=== PATIENT | male | born 1950 | race Caucasian/White ===

== ENCOUNTER 2019-12-25 07:48 | Outpatient (RCR) | payer MEDICARE, SELFPAY | END 2020-03-04 23:59 | disposition home or self-care (01) | LOC: ANHWOC 07:48 | PROVIDERS: PCP Family Medicine; Visit Provider Physician Assistant | DX: S81.802D Unspecified open wound, left lower leg, subsequent encounter (principal) | CPT/HCPCS: 99212; 99213; A9270; G0463 ==

== ENCOUNTER 2020-07-20 01:17 | Outpatient (CLI) | payer MEDICARE, SELFPAY ==
[2020-07-20 19:24] LABS: SARS-CoV-2 RNA PCR Negative
== END 2020-07-20 01:18 | disposition home or self-care (01) ==
LOC: ANHCOVIDDT 01:17
PROVIDERS: PCP Physician Assistant; Visit Provider Internal Medicine Gastroenterology
DX: Z01.812 Encounter for preprocedural laboratory examination (principal); Z20.828 Contact with and (suspected) exposure to other viral communicable diseases
CPT/HCPCS: 87635; C9803; U0003

== ENCOUNTER 2020-07-22 01:12 | Day surgery (SDC) | payer MEDICARE, SELFPAY ==
[2020-07-15 13:09] VITALS: BMI 44.8
[2020-07-22 07:04] VITALS: BP 108/68; PULSE 60; RESP 18; TEMP 35.9; O2SAT 98; BMI 44.1
[2020-07-22 07:21] LABS: Glucose Point of Care 105 (65-105)
[2020-07-22] MEDS: LACTATED RINGERS 1,000 ML 150 ML IV CONT (07:21)
--- NOTE | 2020-07-22 07:34 | PM.IMHP ---
H&P: HPI History of Present Illness Date/Time: 07/22/20 07:34 Chief complaint: neoplasm screening, hx of colon polyps Narrative: Reason for visit colonoscopy. This very pleasant gentleman seen in consultation at the request of the primary physician. Impression: Screening and surveillance colonoscopy. The patient's history adenomatous colon polyps. CKD. DJD. Diabetic neuropathy. Peripheral arterial disease. CHF. EGD. Gout. Foot ulceration. Low bone mass. Morbid obesity. FRANCISCA. Tachy-jourdan syndrome status post pacemaker. HTN. HLD. DM. Recommendation: Colonoscopy. History: This very pleasant gentleman is here for colonoscopy. He is here for screening and surveillance colonoscopy. She review systems is negative. He has a history adenomatous colon polyps. The patient has lost a filling this lower extremities. He does have a history of sleep apnea on CPAP. Review of Systems Review of Systems: All systems reviewed & are unremarkable except as noted in HPI and below PMFSH Past Medical History Medical History (Updated 07/22/20 @ 07:34 by Mike Perez, DO) Adenomatous colon polyp AVN (avascular necrosis of bone) BMI 45.0-49.9, adult CKD (chronic kidney disease) Degenerative joint disease of knee Diabetic neuropathy Diabetic vasculopathy Diastolic congestive heart failure Erectile dysfunction Gout History of falling History of foot ulcer Low bone mass Morbid obesity with BMI of 45.0-49.9, adult Open wound of left lower extremity FRANCISCA on CPAP Osteoarthritis Pacemaker PAD (peripheral artery disease) Paroxysmal atrial fibrillation Peripheral neuropathy Primary hypertension Prostate cancer screening 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, with long-term current use of insulin Last A1C as of 03/09/20-7.4 Social History Social History Smoking status: Never smoker Second hand tobacco smoke exposure: No Alcohol intake: never Substance use: never Substance use type: does not use Living arrangements: with family Gender identity (if verbalized by the patient): Male Spiritual care concerns: No Meds Home Medications and Allergies Home Medications Medication Instructions Recorded Confirmed Type blood sugar diagnostic #200 each 09/01/19 07/13/20 Rx potassium chloride 20 mEq 20 meq PO QPM tablet 10/28/19 07/15/20 History tablet,extended release lancets 33 gauge #200 each 10/31/19 07/13/20 Rx safety needles 31 gauge x 5/16 #100 each 11/10/19 07/13/20 Rx apixaban 5 mg tablet 5 mg PO BID 11/18/19 07/22/20 History bumetanide 1 mg tablet 2 mg PO BID tablet 11/18/19 07/15/20 History lisinopril 5 mg tablet 5 mg PO BID tablet 11/18/19 07/15/20 History allopurinol 300 mg tablet 300 mg PO DAILY #90 tablet 12/15/19 07/15/20 Rx pen needle, diabetic 31 gauge x #200 each 01/05/20 07/13/20 Rx 03/06 dulaglutide 1.5 mg/0.5 mL 1.5 mg SUB-Q WEEKLY 84 Days #6 ml 02/26/20 07/15/20 Rx subcutaneous pen injector sotalol 80 mg tablet 80 mg PO BID 02/26/20 07/15/20 History cholecalciferol (vitamin D3) 25 25 mcg PO DAILY #90 tablet 07/05/20 07/15/20 Rx mcg (1,000 unit) tablet insulin NPH-regular 70-30 U-100 See Rx Instructions SUB-Q BID 90 07/05/20 07/15/20 Rx insulin 100 unit/mL subcutaneous Days #80883 unit pen tramadol 50 mg tablet 50 mg PO BID PRN #30 tablet 07/06/20 07/15/20 Rx diclofenac potassium 50 mg PO BID 07/15/20 07/15/20 History rosuvastatin 5 mg PO DAILY 07/15/20 07/15/20 History Allergies Allergy/AdvReac Type Severity Reaction Status Date / Time phenylephrine Allergy Intermediate Unknown Verified 07/22/20 07:01 [From Eb-Synephrine (phenylephrine)] Vital Signs Vital Signs - 24 hr 07/22/20 07:04 Temperature 35.9 C L Pulse Rate 60 Respiratory Rate 18 Blood Pressure 108/68 Pulse Oximetry 98
--- NOTE | 2020-07-22 07:57 | WPDANESEPPF ---
Anes - Initial Pre Proc Eval Procedure: Operation Date: 07/22/20 08:00 Proposed Procedures p Screening Colonoscopy - Mike Perez DO Date/Time: 07/22/20 07:57 Surgeon: Mike Perez DO Pre Op Diagnosis: neoplasm screening, hx of colon polyps Patient Data Age: 70 Gender: M Height: 6 ft Weight: 147.5 kg Last Vital Signs Temp 96.7 F L 07/22/20 07:04 Pulse 60 07/22/20 07:04 Resp 18 07/22/20 07:04 BP 108/68 07/22/20 07:04 Pulse Ox 98 07/22/20 07:04 Allergies Allergy/AdvReac Type Severity Reaction Status Date / Time phenylephrine Allergy Intermediate Unknown Verified 07/22/20 07:01 [From Eb-Synephrine (phenylephrine)] Home Medications Medication Instructions Recorded Confirmed Type blood sugar diagnostic #200 each 09/01/19 07/13/20 Rx potassium chloride 20 mEq 20 meq PO QPM tablet 10/28/19 07/15/20 History tablet,extended release lancets 33 gauge #200 each 10/31/19 07/13/20 Rx safety needles 31 gauge x 5/16 #100 each 11/10/19 07/13/20 Rx apixaban 5 mg tablet 5 mg PO BID 11/18/19 07/22/20 History bumetanide 1 mg tablet 2 mg PO BID tablet 11/18/19 07/15/20 History lisinopril 5 mg tablet 5 mg PO BID tablet 11/18/19 07/15/20 History allopurinol 300 mg tablet 300 mg PO DAILY #90 tablet 12/15/19 07/15/20 Rx pen needle, diabetic 31 gauge x #200 each 01/05/20 07/13/20 Rx 5/16 dulaglutide 1.5 mg/0.5 mL 1.5 mg SUB-Q WEEKLY 84 Days #6 ml 02/26/20 07/15/20 Rx subcutaneous pen injector sotalol 80 mg tablet 80 mg PO BID 02/26/20 07/15/20 History cholecalciferol (vitamin D3) 25 25 mcg PO DAILY #90 tablet 07/05/20 07/15/20 Rx mcg (1,000 unit) tablet insulin NPH-regular 70-30 U-100 See Rx Instructions SUB-Q BID 90 07/05/20 07/15/20 Rx insulin 100 unit/mL subcutaneous Days #62717 unit pen tramadol 50 mg tablet 50 mg PO BID PRN #30 tablet 07/06/20 07/15/20 Rx diclofenac potassium 50 mg PO BID 07/15/20 07/15/20 History rosuvastatin 5 mg PO DAILY 07/15/20 07/15/20 History Laboratory Tests 07/22/20 07:15 POC Capillary Glucose 105 mg/dl mg/dl (65-105) Patient hx anesthesia problems: none Family hx anesthesia problems: none PMFSH Past Medical History Medical History (Updated 07/22/20 @ 07:38 by Mike Perez DO) Adenomatous colon polyp AVN (avascular necrosis of bone) CKD (chronic kidney disease) Degenerative joint disease of knee Diabetic neuropathy Diabetic vasculopathy Diastolic congestive heart failure Erectile dysfunction GERD (gastroesophageal reflux disease) Gout History of falling History of foot ulcer HLD (hyperlipidemia) Low bone mass Morbid obesity with BMI of 45.0-49.9, adult Open wound of left lower extremity FRANCISCA on CPAP Osteoarthritis Pacemaker PAD (peripheral artery disease) Paroxysmal atrial fibrillation Peripheral neuropathy Primary hypertension Prostate cancer screening 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, with long-term current use of insulin Last A1C as of 03/09/20-7.4 Social History Social History Smoking status: Never smoker Second hand tobacco smoke exposure: No Alcohol intake: never Substance use: never Substance use type: does not use Living arrangements: with family Gender identity (if verbalized by the patient): Male Spiritual care concerns: No Anes - Eval Final PreProcedure Day of Procedure 07/22/20 07:57 Patient weight: morbidly obese Heart: irregular rhythm Lungs: clear to auscultation Airway: Mallampati scale class III Neurological: alert and oriented Last oral intake: >/= 8 hours ASA classification: IV Emergent: no Anesthetic plan: proceed Anesthesia type and monitoring: general GIVS and standard monitoring Informed Consent: The patient's anesthetic plan and its attendant risks and benefits were discussed with the patient/family/POA. Questions were solicited and answers prov
--- NOTE | 2020-07-22 08:24 | SUR.OPER ---
0812- PT GIVES VERBAL CONSENT FOR DR GÓMEZ TO CALL DAUGHTER WITH PROCEDURE RESULTS.
[2020-07-22 08:42] VITALS: BP 103/65; PULSE 56; RESP 21; O2SAT 97
[2020-07-22 08:52] VITALS: BP 115/75; PULSE 62; RESP 19; O2SAT 100
[2020-07-22 08:57] LABS: Glucose Point of Care 98 (65-105)
[2020-07-22 09:02] VITALS: BP 119/73; PULSE 60; RESP 20; O2SAT 100
== END 2020-07-22 09:16 | disposition home or self-care (01) ==
PROVIDERS: PCP Physician Assistant; Visit Provider Internal Medicine Gastroenterology
PROC: 0DJD8ZZ Inspection of Lower Intestinal Tract, Via Natural or Artificial Opening Endoscopic (ICD-10-PCS; CPT 45378; principal; 2020-07-22 08:00)
DX: Z12.11 Encounter for screening for malignant neoplasm of colon (principal); K64.8 Other hemorrhoids; K60.2 Anal fissure, unspecified; D12.4 Benign neoplasm of descending colon; K63.89 Other specified diseases of intestine; I13.0 Hypertensive heart and chronic kidney disease with heart failure and stage 1 through stage 4 chronic kidney disease, or unspecified chronic kidney disease; E11.40 Type 2 diabetes mellitus with diabetic neuropathy, unspecified; E11.610 Type 2 diabetes mellitus with diabetic neuropathic arthropathy; E11.51 Type 2 diabetes mellitus with diabetic peripheral angiopathy without gangrene; E11.22 Type 2 diabetes mellitus with diabetic chronic kidney disease; I50.9 Heart failure, unspecified; N18.9 Chronic kidney disease, unspecified; Z79.01 Long term (current) use of anticoagulants; Z79.4 Long term (current) use of insulin; I48.0 Paroxysmal atrial fibrillation; E78.5 Hyperlipidemia, unspecified; K21.9 Gastro-esophageal reflux disease without esophagitis; M10.9 Gout, unspecified; G47.33 Obstructive sleep apnea (adult) (pediatric); Z95.0 Presence of cardiac pacemaker; E66.01 Morbid (severe) obesity due to excess calories; Z68.41 Body mass index [BMI] 40.0-44.9, adult
CPT/HCPCS: 45380; 88305; J2704; J7120

== ENCOUNTER 2020-07-26 07:49 | Outpatient (CLI) | payer MEDICARE, SELFPAY ==
--- NOTE | ~2020-07-26 | US_ITS ---
EXAMINATION: US thyroid DATE: 07/26/2020 08:35 INDICATION: Multinodular goiter. Family history of thyroid cancer. TECHNIQUE: Multiple ultrasound images of the thyroid were obtained. COMPARISON: None. FINDINGS: The right thyroid lobe measures 4.7 x 3.5 x 2.6 cm. The left thyroid lobe measures 0.6 x 2.4 x 2.4 c m. 2.4 cm wider than tall solid hypoechoic nodule with smooth margins and internal coarse calcificat ions in the right thyroid lobe. (TI-RADS 4, moderately suspicious , FNA if >=1.5 cm, annual followup is >1 cm). There are a couple additional similar solid or predominantly solid, wider than tall hypoec hoic nodules with smooth margins and without echogenic foci, also TI RADS 4 in the left thyroid lobe is larger measuring 3.0 cm and a smaller nodule measuring 2.3 cm in maximal diameters. Additional wid er than tall, solid very hypoechoic nodules with smooth margins and without internal echogenic foci a lso TI-RADS 4, measuring 2.0 cm in the right thyroid and 1.8 cm the thyroid isthmus. IMPRESSION: 1. Multinodular goiter with 5 TI RADS 4 nodules measuring >1.5 cm in both thyroid lobes and at the th yroid isthmus which would meet criteria for ultrasound-guided biopsy. Would consider ultrasound-guide d biopsy of the largest 3.0 cm nodule in the left thyroid and the largest coarse calcification contai dionisio 2.4 cm nodule in the right thyroid. Reviewed, dictated and finalized at location A. IMPRESSION: 1. Multinodular goiter with 5 TI RADS 4 nodules measuring >1.5 cm in both thyro id lobes and at the thyroid isthmus which would meet criteria for ultrasound-gu ided biopsy. Would consider ultrasound-guided biopsy of the largest 3.0 cm nodu le in the left thyroid and the largest coarse calcification containing 2.4 cm n odule in the right thyroid.
== END 2020-07-26 07:50 | disposition home or self-care (01) ==
PROVIDERS: PCP Physician Assistant; Visit Provider Internal Medicine Endocrinology, Diabetes & Metabolism
DX: E04.2 Nontoxic multinodular goiter (principal); Z80.8 Family history of malignant neoplasm of other organs or systems; R79.89 Other specified abnormal findings of blood chemistry
CPT/HCPCS: 76536

== ENCOUNTER 2020-08-11 09:52 | Outpatient (CLI) | payer MEDICARE, SELFPAY ==
--- NOTE | ~2020-08-11 | US_ITS ---
EXAMINATION: US FNA w image guidance, US FNA additional DATE: 08/11/2020 10:57 INDICATION: Bilateral thyroid nodules TECHNIQUE: A time-out was performed to verify the patient's name, date of , and procedure to be performed . The procedure and its benefits and risks were discussed with the patient. Risks specifically discus sed included bleeding and infection. The patient understood the risks and agreed to proceed. The neck was prepped and draped in the usual sterile manner. 3 mL 1% lidocaine was used for local anesthesia . Attention was first into the left thyroid nodule. 6 passes were made with a 25G needle into the les ion. Appropriate needle location was documented with continuous sonographic guidance. Attention was then turned to the right thyroid nodule. An additional 6 passes were made with a 25G needle into the lesion utilizing continuous sonographic guidance. Sterile bandages were applied. There were no immed iate complications. FINDINGS: Grayscale ultrasound images demonstrate biopsy needles advanced into first the 2.9 cm predominantly s olid hypoechoic TI RADS 4 nodule at the mid inferior left thyroid. Subsequent images demonstrate biop sy needles advanced into a 2.4 cm solid hypoechoic TI RADS 4 nodule with coarse shadowing calcificati ons in the inferior right thyroid. IMPRESSION: 1. Successful ultrasound-guided fine needle aspiration of a 2.9 cm TI RADS 4 left thyroid nodule. 2. Successful ultrasound guided fine-needle aspiration of a 2.4 cm TI RADS 4 right thyroid nodule. Reviewed, dictated and finalized at location A. IMPRESSION: 1. Successful ultrasound-guided fine needle aspiration of a 2.9 cm TI RADS 4 l eft thyroid nodule. 2. Successful ultrasound guided fine-needle aspiration of a 2.4 cm TI RADS 4 ri ght thyroid nodule.
== END 2020-08-11 09:53 | disposition home or self-care (01) ==
PROVIDERS: PCP Physician Assistant; Visit Provider Internal Medicine Endocrinology, Diabetes & Metabolism
DX: E04.2 Nontoxic multinodular goiter (principal)
CPT/HCPCS: 10005; 10006; 88173; 88305

== ENCOUNTER 2020-09-02 08:45 | Outpatient (CLI) | payer MEDICARE, SELFPAY ==
--- NOTE | ~2020-09-02 | US_ITS ---
EXAMINATION: US soft tissue head and neck DATE: 09/02/2020 09:37 INDICATION: Thyroid cancer. Assess for cervical lymphadenopathy. TECHNIQUE: Multiple grayscale and Doppler ultrasound images of the left and right neck were obtained. COMPARISON: None FINDINGS: A couple normal-sized cervical lymph nodes are identified in both the left and right jugular chains m easuring up to 5 mm in maximal short axis diameter and with with normal central fatty raina. No pathol ogically enlarged cervical lymphadenopathy identified. IMPRESSION: 1. No pathologically enlarged or suspicious appearing cervical lymphadenopathy. Reviewed, dictated and finalized at location A. [employer]
== END 2020-09-02 08:46 | disposition home or self-care (01) ==
PROVIDERS: PCP Physician Assistant; Visit Provider Internal Medicine Endocrinology, Diabetes & Metabolism
DX: C73 Malignant neoplasm of thyroid gland (principal)
CPT/HCPCS: 76536

== ENCOUNTER 2020-11-02 07:15 | Outpatient (RCR) | payer MEDICARE, SELFPAY ==
[2020-08-12 13:47] VITALS: BMI 44.1
--- NOTE | 2020-09-21 12:01 | PM.IMHP ---
H&P: HPI History of Present Illness Date/Time: 09/21/20 12:01 Chief complaint: E11.621 Type 2 diabetes mellitus with foot ulcer Narrative: Tank James is a 70 year old male Who presents to the [place] wound clinic today for re-evaluation of bilateral foot ulcers. The patient was seen in our office last week and radiographs were obtained at that time. The patient is currently awaiting a thyroid surgery due to thyroid cancer. His ulcers are stable in nature. No acute signs of infection. No fever, chills, night sweats, nausea, vomiting or diarrhea. Review of Systems Constitutional: Constitutional: Reports no additional constitutional complaints, Denies excessive sweating, Denies fever(s) and Denies weight gain Eyes: Eyes: Reports no additional eye complaints and Denies change in vision ENT: Reports system reviewed and no additional complaints, except as documented and Reports Normal hearing present Cardiovascular: Cardiovascular: Denies chest pain, Denies diaphoresis, Denies leg ulcers and Denies dyspnea on exertion Respiratory: Respiratory: Reports no additional respiratory complaints, Denies cough and Denies dyspnea on exertion Gastrointestinal: Gastrointestinal: Reports no additional gastrointestinal complaints, Denies abdominal pain, Denies constipation, Denies nausea and Denies vomiting Genitourinary: Genitourinary: Reports no additional male genitourinary complaints, Denies hematuria and Denies urinary frequency Musculoskeletal: Musculoskeletal: Reports no additional musculoskeletal complaints and Reports as per HPI Neurologic: Reports Normal hearing present Endocrine: Endocrine: Reports no additional endocrine complaints, Denies change in body appearance, Denies excessive sweating, Denies polyphagia, Denies polydipsia and Denies polyuria [facility] Past Medical History Medical History Adenomatous colon polyp AVN (avascular necrosis of bone) CKD (chronic kidney disease) Degenerative joint disease of knee Diabetic foot ulcer Diabetic neuropathy Diabetic vasculopathy Diastolic congestive heart failure Erectile dysfunction GERD (gastroesophageal reflux disease) Gout History of falling History of foot ulcer HLD (hyperlipidemia) Low bone mass Morbid obesity with BMI of 45.0-49.9, adult Open wound of left lower extremity FRANCISCA on CPAP Osteoarthritis Pacemaker PAD (peripheral artery disease) Paroxysmal atrial fibrillation Peripheral neuropathy Primary hypertension Prostate cancer screening 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, with long-term current use of insulin Last A1C as of 03/09/20-7.4 Family History Family History Other Cerebrovascular accident Diabetes mellitus Family history of arthritis Family history of cardiovascular disease Family history of gout Family history of hepatitis Family history of malignant neoplasm Family history of malignant neoplasm of thyroid Family history of thyroid disease Hypertension Social History Social History Smoking status: Never smoker Second hand tobacco smoke exposure: No Alcohol intake: never Substance use: never Substance use type: does not use Gender identity (if verbalized by the patient): Male Sexual Orientation (if Verbalized by the Patient): Straight or Heterosexual Spiritual care concerns: No Meds Home Medications and Allergies Home Medications Medication Instructions Recorded Confirmed Type blood sugar diagnostic #200 each 09/01/19 07/13/20 Rx potassium chloride 20 mEq 20 meq PO QPM tablet 10/28/19 07/15/20 History tablet,extended release lancets 33 gauge #200 each 10/31/19 07/13/20 Rx safety needles 31 gauge x 16 #100 each 11/10/19 07/13/20 Rx apixaban 5 mg tablet 5 mg PO BID 11/18/19 07/22/20 History bumetanide
--- NOTE | 2020-10-05 09:35 | PM.IMHP ---
H&P: HPI History of Present Illness Date/Time: 10/05/20 09:35 Chief complaint: E11.621 Type 2 diabetes mellitus with foot ulcer Narrative: Tank James is a 70 year old male who presents to the [facility] wound clinic today for re-evaluation of bilateral foot ulcers. The patient is currently awaiting a thyroid surgery due to thyroid cancer, surgery planned for this . His ulcers are stable in nature. No acute signs of infection. No fever, chills, night sweats, nausea, vomiting or diarrhea. Review of Systems Constitutional: Constitutional: Reports no additional constitutional complaints, Denies excessive sweating, Denies fever(s) and Denies weight gain Eyes: Eyes: Reports no additional eye complaints and Denies change in vision ENT: Reports system reviewed and no additional complaints, except as documented and Reports Normal hearing present Cardiovascular: Cardiovascular: Denies chest pain, Denies diaphoresis, Denies leg ulcers and Denies dyspnea on exertion Respiratory: Respiratory: Reports no additional respiratory complaints, Denies cough and Denies dyspnea on exertion Gastrointestinal: Gastrointestinal: Reports no additional gastrointestinal complaints, Denies abdominal pain, Denies constipation, Denies nausea and Denies vomiting Genitourinary: Genitourinary: Reports no additional male genitourinary complaints, Denies hematuria and Denies urinary frequency Musculoskeletal: Musculoskeletal: Reports no additional musculoskeletal complaints and Reports as per HPI Neurologic: Reports Normal hearing present Endocrine: Endocrine: Reports no additional endocrine complaints, Denies change in body appearance, Denies excessive sweating, Denies polyphagia, Denies polydipsia and Denies polyuria [facility] Past Medical History Medical History Adenomatous colon polyp AVN (avascular necrosis of bone) CKD (chronic kidney disease) Degenerative joint disease of knee Diabetic foot ulcer Diabetic neuropathy Diabetic vasculopathy Diastolic congestive heart failure Erectile dysfunction GERD (gastroesophageal reflux disease) Gout History of falling History of foot ulcer HLD (hyperlipidemia) Low bone mass Morbid obesity with BMI of 45.0-49.9, adult Open wound of left lower extremity FRANCISCA on CPAP Osteoarthritis Pacemaker PAD (peripheral artery disease) Paroxysmal atrial fibrillation Peripheral neuropathy Primary hypertension Prostate cancer screening 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, with long-term current use of insulin Last A1C as of 03/09/20-7.4 Family History Family History Other Cerebrovascular accident Diabetes mellitus Family history of arthritis Family history of cardiovascular disease Family history of gout Family history of hepatitis Family history of malignant neoplasm Family history of malignant neoplasm of thyroid Family history of thyroid disease Hypertension Social History Social History Smoking status: Never smoker Second hand tobacco smoke exposure: No Alcohol intake: never Substance use: never Substance use type: does not use Gender identity (if verbalized by the patient): Male Sexual Orientation (if Verbalized by the Patient): Straight or Heterosexual Spiritual care concerns: No Meds Home Medications and Allergies Home Medications Medication Instructions Recorded Confirmed Type blood sugar diagnostic #200 each 09/01/19 07/13/20 Rx potassium chloride 20 mEq 20 meq PO QPM tablet 10/28/19 07/15/20 History tablet,extended release lancets 33 gauge #200 each 10/31/19 07/13/20 Rx safety needles 31 gauge x 5/16 #100 each 11/10/19 07/13/20 Rx apixaban 5 mg tablet 5 mg PO BID 11/18/19 07/22/20 History bumetanide 1 mg tablet 2 mg PO BID tablet 11/18/19 07/15/20 Hist
--- NOTE | 2020-11-02 09:21 | PM.CNOR ---
Assessment and Plan Assessment and plan (1) Diabetic foot ulcer: Qualifiers: Diabetic foot ulcer location: toe Diabetes mellitus type: type 2 Laterality: unspecified laterality Non-pressure ulcer stage: with muscle involvement without evidence of necrosis Qualified Code(s): E11.621 - Type 2 diabetes mellitus with foot ulcer; L97.505 - Non-pressure chronic ulcer of other part of unspecified foot with muscle involvement without evidence of necrosis Code(s): E11.621 - Type 2 diabetes mellitus with foot ulcer; L97.509 - Non-pressure chronic ulcer of other part of unspecified foot with unspecified severity Status: Acute Assessment and Plan: Patient with recurrent bilateral foot ulcers. History and exam reviewed with the patient today. Good improvement with daily dressing changes. Surrounding callus formation debrided under sterile conditions today, tolerated well. Patient continues to decline fracture boot or TCC for optimal healing. after callus removal hypergranulation tissue of the left hallux treated with silver nitrate. Continue silver gel/mepilex foam to bilateral foot ulcers and antifungal cream to plantar foot. Patient's is at bedside and is performing home dressing changes. Verbalized understanding. Reviewed signs/symptoms of infection to report to ED immediately. Patient verbalized understanding and agrees with plan of care. Follow up in 4 weeks with [facility]. (2) Thyroid cancer: Code(s): C73 - Malignant neoplasm of thyroid gland Status: Acute Assessment and Plan: Status post thyroidectomy. Patient scheduled for radioactive iodine. (3) Type 2 diabetes mellitus with hyperglycemia: Qualifiers: Diabetes mellitus intermediate school teacher insulin use: with intermediate school teacher use Qualified Code(s): E11.65 - Type 2 diabetes mellitus with hyperglycemia; Z79.4 - manager long term care (current) use of insulin Code(s): E11.65 - Type 2 diabetes mellitus with hyperglycemia Status: Acute Assessment and Plan: Discussed importance of close diabetic control, optimal nutrition and blood glucose monitoring for bilateral foot ulcer healing. Recommended continuation of custom orthotics and depth shoes. Patient would benefit from a fracture boot or a total contact cast he currently declines due to other medical complications. We will continue to follow in the outpatient wound clinic. We reviewed signs symptoms of infection to report to the emergency room immediately. Patient verbalized understanding agrees the plan of care. (4) BMI 45.0-49.9, adult: Code(s): Z68.42 - Body mass index [BMI] 45.0-49.9, adult Status: Acute Assessment and Plan: Today we discussed weight loss in depth. The patient was referred to programs including the [facility] repeater chief, [employer] and [employer]. Discussed importance of weight loss in relation to surgical intervention in order to reduce the risk of postoperative complications, verbalized understanding. (5) Degenerative joint disease of knee: Qualifiers: Osteoarthritis type: primary Laterality: left Qualified Code(s): M17.12 - Unilateral primary osteoarthritis, left knee Code(s): M17.10 - Unilateral primary osteoarthritis, unspecified knee Status: Acute Assessment and Plan: Minimal pain at this time secondary to immobility after surgery. Effusion improved. No signs of infection. Continue with conservative treatment and observation. Discussed options for treatment the future if symptomatic. History of Present Illness HPI Consult date: 11/02/20 Requesting physician: Ramon Valderrama, PAHedyC Chief complaint: E11.621 Type 2 diabetes mellitus with foot ulcer Narrative: 7-year-old gentleman returns to [facility] outpatient wound clinic for evaluation of bilateral hallux diabetic foot ulcers. Patient with history of thyroid cancer. Status post thyroid resection in the interim. This was
== END 2020-11-10 23:59 | disposition home or self-care (01) ==
LOC: ANHWOC 07:15
PROVIDERS: PCP Physician Assistant; Referring Provider Orthopaedic Surgery; Visit Provider Family Medicine
DX: E11.621 Type 2 diabetes mellitus with foot ulcer (principal); L97.509 Non-pressure chronic ulcer of other part of unspecified foot with unspecified severity
CPT/HCPCS: 11042; 99212; 99213; A9270; G0463

== ENCOUNTER 2020-12-24 08:24 | Outpatient (CLI) | payer MEDICARE, SELFPAY | END 2020-12-24 08:25 | disposition home or self-care (01) | LOC: ANHCOVIDVC 08:24 | PROVIDERS: PCP Physician Assistant | DX: Z23 Encounter for immunization (principal) | CPT/HCPCS: 0001A; 91300 ==

== ENCOUNTER 2021-01-14 09:58 | Outpatient (CLI) | payer MEDICARE, SELFPAY | END 2021-01-14 09:59 | disposition home or self-care (01) | LOC: ANHCOVIDVC 09:58 | PROVIDERS: PCP Physician Assistant | DX: Z23 Encounter for immunization (principal) | CPT/HCPCS: 0002A; 91300 ==

== ENCOUNTER 2021-03-15 07:29 | Outpatient (RCR) | payer MEDICARE, SELFPAY ==
[2020-11-11 00:04] VITALS: BMI 44.1
--- NOTE | 2020-12-06 12:03 | PCWOUND ---
WOCN NOTE Patient cancelled due to radiation treatments. will call back to reschedule when he is clear.
--- NOTE | 2020-12-15 10:00 | PM.CNOR ---
Assessment and Plan Assessment and plan (1) Diabetic foot ulcer: Qualifiers: Diabetic foot ulcer location: toe Diabetes mellitus type: type 2 Laterality: unspecified laterality Non-pressure ulcer stage: with muscle involvement without evidence of necrosis Qualified Code(s): E11.621 - Type 2 diabetes mellitus with foot ulcer; L97.505 - Non-pressure chronic ulcer of other part of unspecified foot with muscle involvement without evidence of necrosis Code(s): E11.621 - Type 2 diabetes mellitus with foot ulcer; L97.509 - Non-pressure chronic ulcer of other part of unspecified foot with unspecified severity Status: Acute Assessment and Plan: Patient with recurrent bilateral foot ulcers. History and exam reviewed with the patient today. Good improvement with daily dressing changes. hypergranulation tissue of the bilateral hallux treated with silver nitrate. Continue silver gel/mepilex foam to bilateral foot ulcers and antifungal cream to plantar foot. Patient's is at bedside and is performing home dressing changes. Verbalized understanding. Reviewed signs/symptoms of infection to report to ED immediately. Patient verbalized understanding and agrees with plan of care. Follow up in 4 weeks with [facility]. (2) Thyroid cancer: Code(s): C73 - Malignant neoplasm of thyroid gland Status: Acute Assessment and Plan: Status post thyroidectomy. Patient scheduled for radioactive iodine. (3) Type 2 diabetes mellitus with hyperglycemia: Qualifiers: Diabetes mellitus fpc insulin use: with fpc use Qualified Code(s): E11.65 - Type 2 diabetes mellitus with hyperglycemia; Z79.4 - alf (current) use of insulin Code(s): E11.65 - Type 2 diabetes mellitus with hyperglycemia Status: Acute Assessment and Plan: Discussed importance of close diabetic control, optimal nutrition and blood glucose monitoring for bilateral foot ulcer healing. Recommended continuation of custom orthotics and depth shoes. Patient would benefit from a fracture boot or a total contact cast he currently declines due to other medical complications. We will continue to follow in the outpatient wound clinic. We reviewed signs symptoms of infection to report to the emergency room immediately. Patient verbalized understanding agrees the plan of care. (4) BMI 45.0-49.9, adult: Code(s): Z68.42 - Body mass index [BMI] 45.0-49.9, adult Status: Acute (5) Degenerative joint disease of knee: Qualifiers: Osteoarthritis type: primary Laterality: left Qualified Code(s): M17.12 - Unilateral primary osteoarthritis, left knee Code(s): M17.10 - Unilateral primary osteoarthritis, unspecified knee Status: Acute Assessment and Plan: Minimal pain at this time secondary to immobility after surgery. Effusion improved. No signs of infection. Continue with conservative treatment and observation. Discussed options for treatment the future if symptomatic. History of Present Illness HPI Consult date: 12/15/20 Requesting physician: Ramon Valderrama, VERO Chief complaint: E11.621 Type 2 diabetes mellitus with foot ulcer Narrative: 70-year-old gentleman returns to [facility] outpatient wound clinic for evaluation of bilateral hallux diabetic foot ulcers. Patient with history of thyroid cancer. Status post thyroid resection. This was complicated by tracheal laceration. He is doing better in regard to that. They feel like the trachea is healed in his wound is improved. Continues with daily dressing changes for the hallux bilaterally. No fever chills or increased symptoms. No new complaints. Patient has completed radiation for his thyroid treatment. Review of Systems Constitutional: Constitutional: Reports no additional constitutional complaints, Denies excessive sweating, Denies fever(s) and Denies weight gain Eyes: Eyes: Reports no additiona
--- NOTE | 2020-12-17 08:59 | P.PNOP_ITS ---
Subjective Subjective Date/Time Seen: 12/17/20 08:59 Objective Data Meds/Results Medications: Active Medications Generic Name Dose Route Start Last Admin Trade Name Freq PRN Reason Stop Dose Admin Silver 1 each 12/15/20 10:49 Silver Foam Band (Mepilex Ag 4x4) Bandage TOPICAL 03/14/21 23:59 PRN PRN Wound Care [facility] Medical History Adenomatous colon polyp AVN (avascular necrosis of bone) CKD (chronic kidney disease) Degenerative joint disease of knee Diabetic foot ulcer Diabetic neuropathy Diabetic vasculopathy Diastolic congestive heart failure Erectile dysfunction GERD (gastroesophageal reflux disease) Gout History of falling History of foot ulcer HLD (hyperlipidemia) Low bone mass Morbid obesity with BMI of 45.0-49.9, adult Open wound of left lower extremity FRANCISCA on CPAP Osteoarthritis Pacemaker PAD (peripheral artery disease) Paroxysmal atrial fibrillation Peripheral neuropathy Primary hypertension Prostate cancer screening 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, with long-term current use of insulin Last A1C as of 03/09/20-7.4 Family History Other Cerebrovascular accident Diabetes mellitus Family history of arthritis Family history of cardiovascular disease Family history of gout Family history of hepatitis Family history of malignant neoplasm Family history of malignant neoplasm of thyroid Family history of thyroid disease Hypertension Social History Social History Smoking status: Never smoker Second hand tobacco smoke exposure: No Alcohol intake: never Substance use: never Substance use type: does not use Gender identity (if verbalized by the patient): Male Sexual Orientation (if Verbalized by the Patient): Straight or Heterosexual Spiritual care concerns: No
--- NOTE | 2020-12-28 09:48 | PM.PNORT ---
Objective Data Meds/Results Medications: Active Medications Generic Name Dose Route Start Last Admin Trade Name Freq PRN Reason Stop Dose Admin Silver 1 each 12/15/20 10:49 Silver Foam Band (Mepilex Ag 4x4) Bandage TOPICAL 03/14/21 23:59 PRN PRN Wound Care
--- NOTE | 2020-12-28 09:50 | PM.IMHP ---
H&P: HPI History of Present Illness Date/Time: 12/28/20 09:50 Chief Complaint: bilateral diabetic toe ulcers, new complaint of right heel ulcer Narrative: Tank James is a 70 year old male returns for follow-up [facility] outpatient wound clinic. Bilateral plantar hallux diabetic ulcers with no interval problems. New right heel deep tissue injury from hitting rolling walker at home. No fever or chills. Review of Systems Constitutional: Constitutional: Reports no additional constitutional complaints, Denies excessive sweating, Denies fever(s) and Denies weight gain Eyes: Eyes: Reports no additional eye complaints and Denies change in vision ENT: Reports system reviewed and no additional complaints, except as documented and Reports Normal hearing present Cardiovascular: Cardiovascular: Denies chest pain, Denies diaphoresis, Denies leg ulcers and Denies dyspnea on exertion Respiratory: Respiratory: Reports no additional respiratory complaints, Denies cough and Denies dyspnea on exertion Gastrointestinal: Gastrointestinal: Reports no additional gastrointestinal complaints, Denies abdominal pain, Denies constipation, Denies nausea and Denies vomiting Genitourinary: Genitourinary: Reports no additional male genitourinary complaints, Denies hematuria and Denies urinary frequency Musculoskeletal: Musculoskeletal: Reports no additional musculoskeletal complaints and Reports as per HPI Neurologic: Reports Normal hearing present Endocrine: Endocrine: Reports no additional endocrine complaints, Denies change in body appearance, Denies excessive sweating, Denies polyphagia, Denies polydipsia and Denies polyuria [facility] Past Medical History Medical History Adenomatous colon polyp AVN (avascular necrosis of bone) CKD (chronic kidney disease) Degenerative joint disease of knee Diabetic foot ulcer Diabetic neuropathy Diabetic vasculopathy Diastolic congestive heart failure Erectile dysfunction GERD (gastroesophageal reflux disease) Gout History of falling History of foot ulcer HLD (hyperlipidemia) Low bone mass Morbid obesity with BMI of 45.0-49.9, adult Open wound of left lower extremity FRANCISCA on CPAP Osteoarthritis Pacemaker PAD (peripheral artery disease) Paroxysmal atrial fibrillation Peripheral neuropathy Primary hypertension Prostate cancer screening 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, with long-term current use of insulin Last A1C as of 03/09/20-7.4 Family History Family History Other Cerebrovascular accident Diabetes mellitus Family history of arthritis Family history of cardiovascular disease Family history of gout Family history of hepatitis Family history of malignant neoplasm Family history of malignant neoplasm of thyroid Family history of thyroid disease Hypertension Social History Social History Smoking status: Never smoker Second hand tobacco smoke exposure: No Alcohol intake: never Substance use: never Substance use type: does not use Gender identity (if verbalized by the patient): Male Sexual Orientation (if Verbalized by the Patient): Straight or Heterosexual Spiritual care concerns: No Meds Home Medications and Allergies Home Medications Medication Instructions Recorded Confirmed Type blood sugar diagnostic #200 each 09/01/19 12/22/20 Rx potassium chloride 20 mEq 20 meq PO QPM tablet 10/28/19 12/22/20 History tablet,extended release lancets 33 gauge #200 each 10/31/19 12/22/20 Rx safety needles 31 gauge x 5/16 #100 each 11/10/19 12/22/20 Rx apixaban 5 mg tablet 5 mg PO BID 11/18/19 12/22/20 History bumetanide 1 mg tablet 2 mg PO BID tablet 11/18/19 12/22/20 History lisinopril 5 mg tablet 5 mg PO BID tablet 11/18/19 12/22/20 History dulaglut
--- NOTE | 2021-01-11 08:53 | PM.IMHP ---
H&P: HPI History of Present Illness Date/Time: 01/11/21 08:53 Tank James is a 70 year old male returns for follow-up [facility] outpatient wound clinic. Bilateral plantar hallux diabetic ulcers with no interval problems. Right heel deep tissue injury from hitting rolling walker at home now completely healed with scab cover. No fever or chills. No signs of worsening infection. Chief Complaint: Left 1st MTP joint ulcer, Right Medial Hallux Ulcer. Review of Systems Constitutional: Constitutional: Reports no additional constitutional complaints, Denies excessive sweating, Denies fever(s) and Denies weight gain Eyes: Eyes: Reports no additional eye complaints and Denies change in vision ENT: Reports system reviewed and no additional complaints, except as documented and Reports Normal hearing present Cardiovascular: Cardiovascular: Denies chest pain, Denies diaphoresis, Denies leg ulcers and Denies dyspnea on exertion Respiratory: Respiratory: Reports no additional respiratory complaints, Denies cough and Denies dyspnea on exertion Gastrointestinal: Gastrointestinal: Reports no additional gastrointestinal complaints, Denies abdominal pain, Denies constipation, Denies nausea and Denies vomiting Genitourinary: Genitourinary: Reports no additional male genitourinary complaints, Denies hematuria and Denies urinary frequency Musculoskeletal: Musculoskeletal: Reports no additional musculoskeletal complaints and Reports as per HPI Neurologic: Reports Normal hearing present Endocrine: Endocrine: Reports no additional endocrine complaints, Denies change in body appearance, Denies excessive sweating, Denies polyphagia, Denies polydipsia and Denies polyuria [facility] Past Medical History Medical History Adenomatous colon polyp AVN (avascular necrosis of bone) CKD (chronic kidney disease) Degenerative joint disease of knee Diabetic foot ulcer Diabetic neuropathy Diabetic vasculopathy Diastolic congestive heart failure Erectile dysfunction GERD (gastroesophageal reflux disease) Gout History of falling History of foot ulcer HLD (hyperlipidemia) Low bone mass Morbid obesity with BMI of 45.0-49.9, adult Open wound of left lower extremity FRANCISCA on CPAP Osteoarthritis Pacemaker PAD (peripheral artery disease) Paroxysmal atrial fibrillation Peripheral neuropathy Primary hypertension Prostate cancer screening 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, with long-term current use of insulin Last A1C as of 03/09/20-7.4 Ulcer of heel Family History Family History Other Cerebrovascular accident Diabetes mellitus Family history of arthritis Family history of cardiovascular disease Family history of gout Family history of hepatitis Family history of malignant neoplasm Family history of malignant neoplasm of thyroid Family history of thyroid disease Hypertension Social History Social History Smoking status: Never smoker Second hand tobacco smoke exposure: No Alcohol intake: never Substance use: never Substance use type: does not use Gender identity (if verbalized by the patient): Male Sexual Orientation (if Verbalized by the Patient): Straight or Heterosexual Spiritual care concerns: No Meds Home Medications and Allergies Home Medications Medication Instructions Recorded Confirmed Type blood sugar diagnostic #200 each 09/01/19 12/22/20 Rx potassium chloride 20 mEq 20 meq PO QPM tablet 10/28/19 12/22/20 History tablet,extended release lancets 33 gauge #200 each 10/31/19 12/22/20 Rx safety needles 31 gauge x 5/16 #100 each 11/10/19 12/22/20 Rx apixaban 5 mg tablet 5 mg PO BID 11/18/19 12/22/20 History bumetanide 1 mg tablet 2 mg PO BID tablet 11/18/19 12/22/20 History lisinopril 5 mg tablet 5
--- NOTE | 2021-01-18 12:13 | PM.IMHP ---
H&P: HPI History of Present Illness Date/Time: 01/18/21 12:13 Tank James is a 70 year old male returns for follow-up [facility] outpatient wound clinic. Bilateral plantar hallux diabetic ulcers with no interval problems. Patient is hopeful to have a left total knee arthroplasty by [facility] in [place] but wounds with both need to be healed prior to surgical intervention. He was put in a total contact cast approximately 1 week ago to expedite healing. He reports no complications with use of total contact cast. Chief Complaint: Left 1st MTP joint ulcer, Right Medial Hallux Ulcer. Chief Complaint: bilateral hallux ulceration Review of Systems Constitutional: Constitutional: Reports no additional constitutional complaints, Denies excessive sweating, Denies fever(s) and Denies weight gain Eyes: Eyes: Reports no additional eye complaints and Denies change in vision ENT: Reports system reviewed and no additional complaints, except as documented and Reports Normal hearing present Cardiovascular: Cardiovascular: Denies chest pain, Denies diaphoresis, Denies leg ulcers and Denies dyspnea on exertion Respiratory: Respiratory: Reports no additional respiratory complaints, Denies cough and Denies dyspnea on exertion Gastrointestinal: Gastrointestinal: Reports no additional gastrointestinal complaints, Denies abdominal pain, Denies constipation, Denies nausea and Denies vomiting Genitourinary: Genitourinary: Reports no additional male genitourinary complaints, Denies hematuria and Denies urinary frequency Musculoskeletal: Musculoskeletal: Reports no additional musculoskeletal complaints and Reports as per HPI Neurologic: Reports Normal hearing present Endocrine: Endocrine: Reports no additional endocrine complaints, Denies change in body appearance, Denies excessive sweating, Denies polyphagia, Denies polydipsia and Denies polyuria [facility] Past Medical History Medical History Adenomatous colon polyp AVN (avascular necrosis of bone) CKD (chronic kidney disease) Degenerative joint disease of knee Diabetic foot ulcer Diabetic neuropathy Diabetic vasculopathy Diastolic congestive heart failure Erectile dysfunction GERD (gastroesophageal reflux disease) Gout History of falling History of foot ulcer HLD (hyperlipidemia) Low bone mass Morbid obesity with BMI of 45.0-49.9, adult Open wound of left lower extremity FRANCISCA on CPAP Osteoarthritis Pacemaker PAD (peripheral artery disease) Paroxysmal atrial fibrillation Peripheral neuropathy Primary hypertension Prostate cancer screening 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, with long-term current use of insulin Last A1C as of 03/09/20-7.4 Ulcer of heel Family History Family History Other Cerebrovascular accident Diabetes mellitus Family history of arthritis Family history of cardiovascular disease Family history of gout Family history of hepatitis Family history of malignant neoplasm Family history of malignant neoplasm of thyroid Family history of thyroid disease Hypertension Social History Social History Smoking status: Never smoker Second hand tobacco smoke exposure: No Alcohol intake: never Substance use: never Substance use type: does not use Gender identity (if verbalized by the patient): Male Sexual Orientation (if Verbalized by the Patient): Straight or Heterosexual Spiritual care concerns: No Meds Home Medications and Allergies Home Medications Medication Instructions Recorded Confirmed Type blood sugar diagnostic #200 each 09/01/19 12/22/20 Rx potassium chloride 20 mEq 20 meq PO QPM tablet 10/28/19 12/22/20 History tablet,extended release lancets 33 gauge #200 each 10/31/19 12/22/20 Rx safety needles 31 gauge x 5/16
--- NOTE | 2021-01-25 08:36 | PM.IMHP ---
H&P: HPI History of Present Illness Date/Time: 01/25/21 08:36 Tank James is a 70 year old male returns for follow-up [facility] outpatient wound clinic. Bilateral plantar hallux diabetic ulcers with no interval problems. Patient is hopeful to have a left total knee arthroplasty by [facility] in [place] but wounds will both need to be healed prior to surgical intervention. Undergoing total contact dressing changes with good relief of pressure on the left lower extremity ulceration with marked improvement in measurements. No complications with dressing changes to the right foot. No new signs of infection. Chief Complaint: B/L DFU Review of Systems Constitutional: Constitutional: Reports no additional constitutional complaints, Denies excessive sweating, Denies fever(s) and Denies weight gain Eyes: Eyes: Reports no additional eye complaints and Denies change in vision ENT: Reports system reviewed and no additional complaints, except as documented and Reports Normal hearing present Cardiovascular: Cardiovascular: Denies chest pain, Denies diaphoresis, Denies leg ulcers and Denies dyspnea on exertion Respiratory: Respiratory: Reports no additional respiratory complaints, Denies cough and Denies dyspnea on exertion Gastrointestinal: Gastrointestinal: Reports no additional gastrointestinal complaints, Denies abdominal pain, Denies constipation, Denies nausea and Denies vomiting Genitourinary: Genitourinary: Reports no additional male genitourinary complaints, Denies hematuria and Denies urinary frequency Musculoskeletal: Musculoskeletal: Reports no additional musculoskeletal complaints and Reports as per HPI Neurologic: Reports Normal hearing present Endocrine: Endocrine: Reports no additional endocrine complaints, Denies change in body appearance, Denies excessive sweating, Denies polyphagia, Denies polydipsia and Denies polyuria [facility] Past Medical History Medical History Adenomatous colon polyp AVN (avascular necrosis of bone) CKD (chronic kidney disease) Degenerative joint disease of knee Diabetic foot ulcer Diabetic neuropathy Diabetic vasculopathy Diastolic congestive heart failure Erectile dysfunction GERD (gastroesophageal reflux disease) Gout History of falling History of foot ulcer HLD (hyperlipidemia) Low bone mass Morbid obesity with BMI of 45.0-49.9, adult Open wound of left lower extremity FRANCISCA on CPAP Osteoarthritis Pacemaker PAD (peripheral artery disease) Paroxysmal atrial fibrillation Peripheral neuropathy Primary hypertension Prostate cancer screening 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, with long-term current use of insulin Last A1C as of 03/09/20-7.4 Ulcer of heel Family History Family History Other Cerebrovascular accident Diabetes mellitus Family history of arthritis Family history of cardiovascular disease Family history of gout Family history of hepatitis Family history of malignant neoplasm Family history of malignant neoplasm of thyroid Family history of thyroid disease Hypertension Social History Social History Smoking status: Never smoker Second hand tobacco smoke exposure: No Alcohol intake: never Substance use: never Substance use type: does not use Gender identity (if verbalized by the patient): Male Sexual Orientation (if Verbalized by the Patient): Straight or Heterosexual Spiritual care concerns: No Meds Home Medications and Allergies Home Medications Medication Instructions Recorded Confirmed Type blood sugar diagnostic #200 each 09/01/19 12/22/20 Rx potassium chloride 20 mEq 20 meq PO QPM tablet 10/28/19 12/22/20 History tablet,extended release lancets 33 gauge #200 each 10/31/19 12/22/20 Rx safety needles 31 gauge x
--- NOTE | 2021-02-01 08:45 | PM.IMHP ---
H&P: HPI History of Present Illness Date/Time: 02/01/21 08:45 Chief Complaint: bilateral hallux diabetic ulcers Narrative: patient returns to [facility] outpatient clinic with bilateral hallux ulcers. Dressing changes on the right. Total contact cast on the left. No new complaints. Review of Systems Constitutional: Constitutional: Reports no additional constitutional complaints, Denies excessive sweating, Denies fever(s) and Denies weight gain Eyes: Eyes: Reports no additional eye complaints and Denies change in vision ENT: Reports system reviewed and no additional complaints, except as documented and Reports Normal hearing present Cardiovascular: Cardiovascular: Denies chest pain, Denies diaphoresis, Denies leg ulcers and Denies dyspnea on exertion Respiratory: Respiratory: Reports no additional respiratory complaints, Denies cough and Denies dyspnea on exertion Gastrointestinal: Gastrointestinal: Reports no additional gastrointestinal complaints, Denies abdominal pain, Denies constipation, Denies nausea and Denies vomiting Genitourinary: Genitourinary: Reports no additional male genitourinary complaints, Denies hematuria and Denies urinary frequency Musculoskeletal: Musculoskeletal: Reports no additional musculoskeletal complaints and Reports as per HPI Neurologic: Reports Normal hearing present Endocrine: Endocrine: Reports no additional endocrine complaints, Denies change in body appearance, Denies excessive sweating, Denies polyphagia, Denies polydipsia and Denies polyuria [facility] Past Medical History Medical History Adenomatous colon polyp AVN (avascular necrosis of bone) CKD (chronic kidney disease) Degenerative joint disease of knee Diabetic foot ulcer Diabetic neuropathy Diabetic vasculopathy Diastolic congestive heart failure Erectile dysfunction GERD (gastroesophageal reflux disease) Gout History of falling History of foot ulcer HLD (hyperlipidemia) Low bone mass Morbid obesity with BMI of 45.0-49.9, adult Open wound of left lower extremity FRANCISCA on CPAP Osteoarthritis Pacemaker PAD (peripheral artery disease) Paroxysmal atrial fibrillation Peripheral neuropathy Primary hypertension Prostate cancer screening 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, with long-term current use of insulin Last A1C as of 03/09/20-7.4 Ulcer of heel Family History Family History Other Cerebrovascular accident Diabetes mellitus Family history of arthritis Family history of cardiovascular disease Family history of gout Family history of hepatitis Family history of malignant neoplasm Family history of malignant neoplasm of thyroid Family history of thyroid disease Hypertension Social History Social History Smoking status: Never smoker Second hand tobacco smoke exposure: No Alcohol intake: never Substance use: never Substance use type: does not use Gender identity (if verbalized by the patient): Male Sexual Orientation (if Verbalized by the Patient): Straight or Heterosexual Spiritual care concerns: No Meds Home Medications and Allergies Home Medications Medication Instructions Recorded Confirmed Type potassium chloride 20 mEq 20 meq PO QPM tablet 10/28/19 12/22/20 History tablet,extended release lancets 33 gauge #200 each 10/31/19 12/22/20 Rx safety needles 31 gauge x 5/16 #100 each 11/10/19 12/22/20 Rx apixaban 5 mg tablet 5 mg PO BID 11/18/19 12/22/20 History bumetanide 1 mg tablet 2 mg PO BID tablet 11/18/19 12/22/20 History lisinopril 5 mg tablet 5 mg PO BID tablet 11/18/19 12/22/20 History dulaglutide 1.5 mg/0.5 mL 1.5 mg SUB-Q WEEKLY 84 Days #6 ml 02/26/20 12/22/20 Rx subcutaneous pen injector sotalol 80 mg tablet 80 mg PO BID 02/26/20 12/22/20 History cholec
--- NOTE | 2021-02-08 11:40 | PM.IMHP ---
H&P: HPI History of Present Illness Date/Time: 02/08/21 11:40 71-year-old male presents to [facility] today for re-evaluation of bilateral hallux ulcers. Patient denies any complications with continue total contact cast in the left lower extremity. He has been performing daily dressing changes to the right hallux. He denies fever, chills, night sweats, nausea, vomiting or diarrhea. No new concerns at this time. Chief Complaint: Bilateral Hallux Ulcers Review of Systems Constitutional: Constitutional: Reports no additional constitutional complaints, Denies excessive sweating, Denies fever(s) and Denies weight gain Eyes: Eyes: Reports no additional eye complaints and Denies change in vision ENT: Reports system reviewed and no additional complaints, except as documented and Reports Normal hearing present Cardiovascular: Cardiovascular: Denies chest pain, Denies diaphoresis, Denies leg ulcers and Denies dyspnea on exertion Respiratory: Respiratory: Reports no additional respiratory complaints, Denies cough and Denies dyspnea on exertion Gastrointestinal: Gastrointestinal: Reports no additional gastrointestinal complaints, Denies abdominal pain, Denies constipation, Denies nausea and Denies vomiting Genitourinary: Genitourinary: Reports no additional male genitourinary complaints, Denies hematuria and Denies urinary frequency Musculoskeletal: Musculoskeletal: Reports no additional musculoskeletal complaints and Reports as per HPI Neurologic: Reports Normal hearing present Endocrine: Endocrine: Reports no additional endocrine complaints, Denies change in body appearance, Denies excessive sweating, Denies polyphagia, Denies polydipsia and Denies polyuria [facility] Past Medical History Medical History Adenomatous colon polyp AVN (avascular necrosis of bone) CKD (chronic kidney disease) Degenerative joint disease of knee Diabetic foot ulcer Diabetic neuropathy Diabetic vasculopathy Diastolic congestive heart failure Erectile dysfunction GERD (gastroesophageal reflux disease) Gout History of falling History of foot ulcer HLD (hyperlipidemia) Low bone mass Morbid obesity with BMI of 45.0-49.9, adult Open wound of left lower extremity FRANCISCA on CPAP Osteoarthritis Pacemaker PAD (peripheral artery disease) Paroxysmal atrial fibrillation Peripheral neuropathy Primary hypertension Prostate cancer screening 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, with long-term current use of insulin Last A1C as of 03/09/20-7.4 Ulcer of heel Family History Family History Other Cerebrovascular accident Diabetes mellitus Family history of arthritis Family history of cardiovascular disease Family history of gout Family history of hepatitis Family history of malignant neoplasm Family history of malignant neoplasm of thyroid Family history of thyroid disease Hypertension Social History Social History Smoking status: Never smoker Second hand tobacco smoke exposure: No Alcohol intake: never Substance use: never Substance use type: does not use Gender identity (if verbalized by the patient): Male Sexual Orientation (if Verbalized by the Patient): Straight or Heterosexual Spiritual care concerns: No Meds Home Medications and Allergies Home Medications Medication Instructions Recorded Confirmed Type potassium chloride 20 mEq 20 meq PO QPM tablet 10/28/19 12/22/20 History tablet,extended release lancets 33 gauge #200 each 10/31/19 12/22/20 Rx safety needles 31 gauge x 5/16 #100 each 11/10/19 12/22/20 Rx apixaban 5 mg tablet 5 mg PO BID 11/18/19 12/22/20 History bumetanide 1 mg tablet 2 mg PO BID tablet 11/18/19 12/22/20 History lisinopril 5 mg tablet 5 mg PO BID tablet 11/18/19 12/22/20 Hi
--- NOTE | 2021-02-15 12:34 | PM.IMHP ---
H&P: HPI History of Present Illness Date/Time: 02/15/21 12:34 71-year-old male presents to [facility] today for re-evaluation of bilateral hallux ulcers. Patient denies any complications with continue total contact cast in the left lower extremity. He has been performing daily dressing changes to the right hallux. He denies fever, chills, night sweats, nausea, vomiting or diarrhea. No new concerns at this time. Chief Complaint: Bilateral Hallux Ulcers Chief Complaint: Bilateral foot ulcers Review of Systems Constitutional: Constitutional: Reports no additional constitutional complaints, Denies excessive sweating, Denies fever(s) and Denies weight gain Eyes: Eyes: Reports no additional eye complaints and Denies change in vision ENT: Reports system reviewed and no additional complaints, except as documented and Reports Normal hearing present Cardiovascular: Cardiovascular: Denies chest pain, Denies diaphoresis, Denies leg ulcers and Denies dyspnea on exertion Respiratory: Respiratory: Reports no additional respiratory complaints, Denies cough and Denies dyspnea on exertion Gastrointestinal: Gastrointestinal: Reports no additional gastrointestinal complaints, Denies abdominal pain, Denies constipation, Denies nausea and Denies vomiting Genitourinary: Genitourinary: Reports no additional male genitourinary complaints, Denies hematuria and Denies urinary frequency Musculoskeletal: Musculoskeletal: Reports no additional musculoskeletal complaints and Reports as per HPI Neurologic: Reports Normal hearing present Endocrine: Endocrine: Reports no additional endocrine complaints, Denies change in body appearance, Denies excessive sweating, Denies polyphagia, Denies polydipsia and Denies polyuria [facility] Past Medical History Medical History Adenomatous colon polyp AVN (avascular necrosis of bone) CKD (chronic kidney disease) Degenerative joint disease of knee Diabetic foot ulcer Diabetic neuropathy Diabetic vasculopathy Diastolic congestive heart failure Erectile dysfunction GERD (gastroesophageal reflux disease) Gout History of falling History of foot ulcer HLD (hyperlipidemia) Low bone mass Morbid obesity with BMI of 45.0-49.9, adult Open wound of left lower extremity FRANCISCA on CPAP Osteoarthritis Pacemaker PAD (peripheral artery disease) Paroxysmal atrial fibrillation Peripheral neuropathy Primary hypertension Prostate cancer screening 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, with long-term current use of insulin Last A1C as of 03/09/20-7.4 Ulcer of heel Family History Family History Other Cerebrovascular accident Diabetes mellitus Family history of arthritis Family history of cardiovascular disease Family history of gout Family history of hepatitis Family history of malignant neoplasm Family history of malignant neoplasm of thyroid Family history of thyroid disease Hypertension Social History Social History Smoking status: Never smoker Second hand tobacco smoke exposure: No Alcohol intake: never Substance use: never Substance use type: does not use Gender identity (if verbalized by the patient): Male Sexual Orientation (if Verbalized by the Patient): Straight or Heterosexual Spiritual care concerns: No Meds Home Medications and Allergies Home Medications Medication Instructions Recorded Confirmed Type potassium chloride 20 mEq 20 meq PO QPM tablet 10/28/19 12/22/20 History tablet,extended release lancets 33 gauge #200 each 10/31/19 12/22/20 Rx safety needles 31 gauge x 5/16 #100 each 11/10/19 12/22/20 Rx apixaban 5 mg tablet 5 mg PO BID 11/18/19 12/22/20 History bumetanide 1 mg tablet 2 mg PO BID tablet 11/18/19 12/22/20 History lisinopril 5 mg tabl
--- NOTE | 2021-02-22 12:17 | PM.IMHP ---
H&P: HPI History of Present Illness Date/Time: 02/22/21 12:17 Chief Complaint: bilateral diabetic foot ulcers Narrative: 71-year-old male presents to [facility] today for re-evaluation of bilateral hallux ulcers. Patient denies any complications with continue total contact cast in the left lower extremity. He has been performing daily dressing changes to the right hallux. He denies fever, chills, night sweats, nausea, vomiting or diarrhea. No new concerns at this time. Review of Systems Constitutional: Constitutional: Reports no additional constitutional complaints, Denies excessive sweating, Denies fever(s) and Denies weight gain Eyes: Eyes: Reports no additional eye complaints and Denies change in vision ENT: Reports system reviewed and no additional complaints, except as documented and Reports Normal hearing present Cardiovascular: Cardiovascular: Denies chest pain, Denies diaphoresis, Denies leg ulcers and Denies dyspnea on exertion Respiratory: Respiratory: Reports no additional respiratory complaints, Denies cough and Denies dyspnea on exertion Gastrointestinal: Gastrointestinal: Reports no additional gastrointestinal complaints, Denies abdominal pain, Denies constipation, Denies nausea and Denies vomiting Genitourinary: Genitourinary: Reports no additional male genitourinary complaints, Denies hematuria and Denies urinary frequency Musculoskeletal: Musculoskeletal: Reports no additional musculoskeletal complaints and Reports as per HPI Neurologic: Reports Normal hearing present Endocrine: Endocrine: Reports no additional endocrine complaints, Denies change in body appearance, Denies excessive sweating, Denies polyphagia, Denies polydipsia and Denies polyuria [facility] Past Medical History Medical History Adenomatous colon polyp AVN (avascular necrosis of bone) CKD (chronic kidney disease) Degenerative joint disease of knee Diabetic foot ulcer Diabetic neuropathy Diabetic vasculopathy Diastolic congestive heart failure Erectile dysfunction GERD (gastroesophageal reflux disease) Gout History of falling History of foot ulcer HLD (hyperlipidemia) Low bone mass Morbid obesity with BMI of 45.0-49.9, adult Open wound of left lower extremity FRANCISCA on CPAP Osteoarthritis Pacemaker PAD (peripheral artery disease) Paroxysmal atrial fibrillation Peripheral neuropathy Primary hypertension Prostate cancer screening 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 His daughter who is a registered nurse here at [facility] is very active in helpful in his care. Smoking status: Never smoker Second hand tobacco smoke exposure: No Alcohol intake: never Substance use: never Substance use type: does not use Living arrangements: with family Occupation/Education: retired Additional occupation/education comments: He is retired as a daycare provider Gender identity (if verbalized by the patient): Male Sexual Orientation (if Verbalized by the Patient): Straight or Heterosexual Spiritual care concerns: No Meds Home Medications and Allergies Home Medications Medication Instructions Recorded Confirmed Type potassium chloride 20 mEq 20 meq PO QPM tab
--- NOTE | 2021-03-01 11:05 | PM.IMHP ---
H&P: HPI History of Present Illness Date/Time: 03/01/21 11:05 Chief Complaint: Bilateral diabetic foot ulcers Narrative: 71-year-old male presents to [facility] today for re-evaluation of bilateral hallux ulcers. Patient denies any complications with continued total contact cast in the left lower extremity. He has been performing daily dressing changes to the right hallux. He denies fever, chills, night sweats, nausea, vomiting or diarrhea. No new concerns at this time. Review of Systems Constitutional: Constitutional: Reports no additional constitutional complaints, Denies excessive sweating, Denies fever(s) and Denies weight gain Eyes: Eyes: Reports no additional eye complaints and Denies change in vision ENT: Reports system reviewed and no additional complaints, except as documented and Reports Normal hearing present Cardiovascular: Cardiovascular: Denies chest pain, Denies diaphoresis, Denies leg ulcers and Denies dyspnea on exertion Respiratory: Respiratory: Reports no additional respiratory complaints, Denies cough and Denies dyspnea on exertion Gastrointestinal: Gastrointestinal: Reports no additional gastrointestinal complaints, Denies abdominal pain, Denies constipation, Denies nausea and Denies vomiting Genitourinary: Genitourinary: Reports no additional male genitourinary complaints, Denies hematuria and Denies urinary frequency Musculoskeletal: Musculoskeletal: Reports no additional musculoskeletal complaints and Reports as per HPI Neurologic: Reports Normal hearing present Endocrine: Endocrine: Reports no additional endocrine complaints, Denies change in body appearance, Denies excessive sweating, Denies polyphagia, Denies polydipsia and Denies polyuria [facility] Past Medical History Medical History Adenomatous colon polyp AVN (avascular necrosis of bone) CKD (chronic kidney disease) Degenerative joint disease of knee Diabetic foot ulcer Diabetic neuropathy Diabetic vasculopathy Diastolic congestive heart failure Erectile dysfunction GERD (gastroesophageal reflux disease) Gout History of falling History of foot ulcer HLD (hyperlipidemia) Low bone mass Morbid obesity with BMI of 45.0-49.9, adult Open wound of left lower extremity FRANCISCA on CPAP Osteoarthritis Pacemaker PAD (peripheral artery disease) Paroxysmal atrial fibrillation Peripheral neuropathy Primary hypertension Prostate cancer screening 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, with long-term current use of insulin Last A1C as of 03/09/20-7.4 Ulcer of heel Surgical History Surgical History (Updated 03/01/21 @ 11:07 by STEPHEN Mcpherson) H/O thyroidectomy Family History Family History Other Cerebrovascular accident Diabetes mellitus Family history of arthritis Family history of cardiovascular disease Family history of gout Family history of hepatitis Family history of malignant neoplasm Family history of malignant neoplasm of thyroid Family history of thyroid disease Hypertension Social History Social History Social History: Patient lives at home with his who is suffering from dementia. His daughter who is a registered nurse here at [facility] is very active in helpful in his care. Smoking status: Never smoker Second hand tobacco smoke exposure: No Alcohol intake: never Substance use: never Substance use type: does not use Additional occupation/education comments: He is retired as a daycare provider Gender identity (if verbalized by the patient): Male Spiritual care concerns: No Meds Home Medications and Allergies Home Medications Medication Instructions Recorded Confirmed Type potassium chloride 20 mEq 20 meq PO QPM tablet 10/28/19 02/17/21 History table
--- NOTE | 2021-03-08 12:54 | PM.IMHP ---
H&P: HPI History of Present Illness Date/Time: 03/08/21 12:54 Chief Complaint: bilateral foot ulcers Narrative: 71-year-old male presents to [facility] today for re-evaluation of bilateral hallux ulcers. Patient denies any complications with continued total contact cast in the left lower extremity. He has been performing daily dressing changes to the right hallux. He denies fever, chills, night sweats, nausea, vomiting or diarrhea. No new concerns at this time. Review of Systems Constitutional: Constitutional: Reports no additional constitutional complaints, Denies excessive sweating, Denies fever(s) and Denies weight gain Eyes: Eyes: Reports no additional eye complaints and Denies change in vision ENT: Reports system reviewed and no additional complaints, except as documented and Reports Normal hearing present Cardiovascular: Cardiovascular: Denies chest pain, Denies diaphoresis, Denies leg ulcers and Denies dyspnea on exertion Respiratory: Respiratory: Reports no additional respiratory complaints, Denies cough and Denies dyspnea on exertion Gastrointestinal: Gastrointestinal: Reports no additional gastrointestinal complaints, Denies abdominal pain, Denies constipation, Denies nausea and Denies vomiting Genitourinary: Genitourinary: Reports no additional male genitourinary complaints, Denies hematuria and Denies urinary frequency Musculoskeletal: Musculoskeletal: Reports no additional musculoskeletal complaints and Reports as per HPI Neurologic: Reports Normal hearing present Endocrine: Endocrine: Reports no additional endocrine complaints, Denies change in body appearance, Denies excessive sweating, Denies polyphagia, Denies polydipsia and Denies polyuria PMFSH Past Medical History Medical History Adenomatous colon polyp AVN (avascular necrosis of bone) CKD (chronic kidney disease) Degenerative joint disease of knee Diabetic foot ulcer Diabetic neuropathy Diabetic vasculopathy Diastolic congestive heart failure Erectile dysfunction GERD (gastroesophageal reflux disease) Gout History of falling History of foot ulcer HLD (hyperlipidemia) Low bone mass Morbid obesity with BMI of 45.0-49.9, adult Open wound of left lower extremity FRANCISCA on CPAP Osteoarthritis Pacemaker PAD (peripheral artery disease) Paroxysmal atrial fibrillation Peripheral neuropathy Primary hypertension Prostate cancer screening 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 His daughter who is a registered nurse here at [facility] is very active in helpful in his care. Smoking status: Never smoker Second hand tobacco smoke exposure: No Alcohol intake: never Substance use: never Substance use type: does not use Living arrangements: with family Occupation/Education: retired Additional occupation/education comments: He is retired as a daycare provider Gender identity (if verbalized by the patient): Male Sexual Orientation (if Verbalized by the Patient): Straight or Heterosexual Spiritual care concerns: No Meds Home Medications and Allergies Home Medications
--- NOTE | 2021-03-15 12:20 | PM.IMHP ---
H&P: HPI History of Present Illness Date/Time: 03/15/21 12:20 Chief Complaint: B/L DFU Narrative: 71-year-old male presents to [facility] today for re-evaluation of bilateral hallux ulcers. Patient denies any complications with continued total contact cast in the left lower extremity. He has been performing daily dressing changes to the right hallux. He denies fever, chills, night sweats, nausea, vomiting or diarrhea. No new concerns at this time. Review of Systems Constitutional: Constitutional: Reports no additional constitutional complaints, Denies excessive sweating, Denies fever(s) and Denies weight gain Eyes: Eyes: Reports no additional eye complaints and Denies change in vision ENT: Reports system reviewed and no additional complaints, except as documented and Reports Normal hearing present Cardiovascular: Cardiovascular: Denies chest pain, Denies diaphoresis, Denies leg ulcers and Denies dyspnea on exertion Respiratory: Respiratory: Reports no additional respiratory complaints, Denies cough and Denies dyspnea on exertion Gastrointestinal: Gastrointestinal: Reports no additional gastrointestinal complaints, Denies abdominal pain, Denies constipation, Denies nausea and Denies vomiting Genitourinary: Genitourinary: Reports no additional male genitourinary complaints, Denies hematuria and Denies urinary frequency Musculoskeletal: Musculoskeletal: Reports no additional musculoskeletal complaints and Reports as per HPI Neurologic: Reports Normal hearing present Endocrine: Endocrine: Reports no additional endocrine complaints, Denies change in body appearance, Denies excessive sweating, Denies polyphagia, Denies polydipsia and Denies polyuria PMFSH Past Medical History Medical History Adenomatous colon polyp AVN (avascular necrosis of bone) CKD (chronic kidney disease) Degenerative joint disease of knee Diabetic foot ulcer Diabetic neuropathy Diabetic vasculopathy Diastolic congestive heart failure Erectile dysfunction GERD (gastroesophageal reflux disease) Gout History of falling History of foot ulcer HLD (hyperlipidemia) Low bone mass Morbid obesity with BMI of 45.0-49.9, adult Open wound of left lower extremity FRANCISCA on CPAP Osteoarthritis Pacemaker PAD (peripheral artery disease) Paroxysmal atrial fibrillation Peripheral neuropathy Primary hypertension Prostate cancer screening 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 His daughter who is a registered nurse here at [facility] is very active in helpful in his care. Smoking status: Never smoker Second hand tobacco smoke exposure: No Alcohol intake: never Substance use: never Substance use type: does not use Living arrangements: with family Occupation/Education: retired Additional occupation/education comments: He is retired as a daycare provider Gender identity (if verbalized by the patient): Male Sexual Orientation (if Verbalized by the Patient): Straight or Heterosexual Spiritual care concerns: No Meds Home Medications and Allergies Home Medications Medic
== END 2021-03-15 23:59 | disposition home or self-care (01) ==
LOC: ANHWOC 07:29
PROVIDERS: PCP Physician Assistant; Referring Provider Nurse Practitioner Family; Visit Provider Nurse Practitioner Family
DX: E11.621 Type 2 diabetes mellitus with foot ulcer (principal); L97.509 Non-pressure chronic ulcer of other part of unspecified foot with unspecified severity
CPT/HCPCS: 11042; 29445; 99212; A9270; G0463

== ENCOUNTER 2021-06-14 07:36 | Outpatient (RCR) | payer MEDICARE, SELFPAY ==
[2021-03-16 00:05] VITALS: BMI 44.1
--- NOTE | 2021-03-22 11:45 | PM.IMHP ---
H&P: HPI History of Present Illness Date/Time: 03/22/21 11:45 Chief Complaint: Bilateral foot ulcers Narrative: 71-year-old male presents to [facility] today for re-evaluation of bilateral hallux ulcers. He was transitioned out of [facility] last week. He denies complications with daily dressing changes to the right hallux and additional offloading to the left 1st MTP joint. He denies fever, chills, night sweats, nausea, vomiting or diarrhea. No new concerns at this time. Review of Systems Constitutional: Constitutional: Reports no additional constitutional complaints, Denies excessive sweating, Denies fever(s) and Denies weight gain Eyes: Eyes: Reports no additional eye complaints and Denies change in vision ENT: Reports system reviewed and no additional complaints, except as documented and Reports Normal hearing present Cardiovascular: Cardiovascular: Denies chest pain, Denies diaphoresis, Denies leg ulcers and Denies dyspnea on exertion Respiratory: Respiratory: Reports no additional respiratory complaints, Denies cough and Denies dyspnea on exertion Gastrointestinal: Gastrointestinal: Reports no additional gastrointestinal complaints, Denies abdominal pain, Denies constipation, Denies nausea and Denies vomiting Genitourinary: Genitourinary: Reports no additional male genitourinary complaints, Denies hematuria and Denies urinary frequency Musculoskeletal: Musculoskeletal: Reports no additional musculoskeletal complaints and Reports as per HPI Neurologic: Reports Normal hearing present Endocrine: Endocrine: Reports no additional endocrine complaints, Denies change in body appearance, Denies excessive sweating, Denies polyphagia, Denies polydipsia and Denies polyuria PMFSH Past Medical History Medical History Adenomatous colon polyp AVN (avascular necrosis of bone) CKD (chronic kidney disease) Degenerative joint disease of knee Diabetic foot ulcer Diabetic neuropathy Diabetic vasculopathy Diastolic congestive heart failure Erectile dysfunction GERD (gastroesophageal reflux disease) Gout History of falling History of foot ulcer HLD (hyperlipidemia) Low bone mass Morbid obesity with BMI of 45.0-49.9, adult Open wound of left lower extremity FRANCISCA on CPAP Osteoarthritis Pacemaker PAD (peripheral artery disease) Paroxysmal atrial fibrillation Peripheral neuropathy Primary hypertension Prostate cancer screening 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 His daughter who is a registered nurse here at [facility] is very active in helpful in his care. Smoking status: Never smoker Second hand tobacco smoke exposure: No Alcohol intake: never Substance use: never Substance use type: does not use Living arrangements: with family Occupation/Education: retired Additional occupation/education comments: He is retired as a daycare provider Gender identity (if verbalized by the patient): Male Sexual Orientation (if Verbalized by the Patient): Straight or Heterosexual Spiritual care concerns: No Meds Home Medications and Allergies Home Medicati
--- NOTE | 2021-04-05 12:07 | PM.IMHP ---
H&P: HPI History of Present Illness Date/Time: 04/05/21 12:07 Chief Complaint: Bilateral foot ulcers Narrative: 71-year-old male presents to [facility] today for re-evaluation of bilateral hallux ulcers. He was transitioned out of TCC 2 weeks ago. He denies complications with daily dressing changes to the right hallux and additional offloading to the left 1st MTP joint, no new wounds. He denies fever, chills, night sweats, nausea, vomiting or diarrhea. No new concerns at this time. Review of Systems Constitutional: Constitutional: Reports no additional constitutional complaints, Denies excessive sweating, Denies fever(s) and Denies weight gain Eyes: Eyes: Reports no additional eye complaints and Denies change in vision ENT: Reports system reviewed and no additional complaints, except as documented and Reports Normal hearing present Cardiovascular: Cardiovascular: Denies chest pain, Denies diaphoresis, Denies leg ulcers and Denies dyspnea on exertion Respiratory: Respiratory: Reports no additional respiratory complaints, Denies cough and Denies dyspnea on exertion Gastrointestinal: Gastrointestinal: Reports no additional gastrointestinal complaints, Denies abdominal pain, Denies constipation, Denies nausea and Denies vomiting Genitourinary: Genitourinary: Reports no additional male genitourinary complaints, Denies hematuria and Denies urinary frequency Musculoskeletal: Musculoskeletal: Reports no additional musculoskeletal complaints and Reports as per HPI Neurologic: Reports Normal hearing present Endocrine: Endocrine: Reports no additional endocrine complaints, Denies change in body appearance, Denies excessive sweating, Denies polyphagia, Denies polydipsia and Denies polyuria [facility] Past Medical History Medical History Adenomatous colon polyp AVN (avascular necrosis of bone) CKD (chronic kidney disease) Degenerative joint disease of knee Diabetic foot ulcer Diabetic neuropathy Diabetic vasculopathy Diastolic congestive heart failure Erectile dysfunction GERD (gastroesophageal reflux disease) Gout History of falling History of foot ulcer HLD (hyperlipidemia) Low bone mass Morbid obesity with BMI of 45.0-49.9, adult Open wound of left lower extremity FRANCISCA on CPAP Osteoarthritis Pacemaker PAD (peripheral artery disease) Paroxysmal atrial fibrillation Peripheral neuropathy Primary hypertension Prostate cancer screening 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 His daughter who is a registered nurse here at [facility] is very active in helpful in his care. Smoking status: Never smoker Second hand tobacco smoke exposure: No Alcohol intake: never Substance use: never Substance use type: does not use Living arrangements: with family Occupation/Education: retired Additional occupation/education comments: He is retired as a daycare provider Gender identity (if verbalized by the patient): Male Sexual Orientation (if Verbalized by the Patient): Straight or Heterosexual Spiritual care concerns: No Meds Home Medications and Allerg
--- NOTE | 2021-04-19 10:00 | PM.IMHP ---
H&P: HPI History of Present Illness Date/Time: 04/19/21 10:01 Chief Complaint: Right foot ulcer Narrative: 71-year-old male presents to [facility] today for re-evaluation of bilateral hallux ulcers. He was transitioned out of TCC several weeks ago. He denies complications with daily dressing changes to the right hallux and additional offloading to the left 1st MTP joint, no new wounds. He denies fever, chills, night sweats, nausea, vomiting or diarrhea. No new concerns at this time. Upset due to the fact that he recently saw Dr. Reynaga with [facility] who is now delaying his surgery due to weight gain. Review of Systems Constitutional: Constitutional: Reports no additional constitutional complaints, Denies excessive sweating, Denies fever(s) and Denies weight gain Eyes: Eyes: Reports no additional eye complaints and Denies change in vision ENT: Reports system reviewed and no additional complaints, except as documented and Reports Normal hearing present Cardiovascular: Cardiovascular: Denies chest pain, Denies diaphoresis, Denies leg ulcers and Denies dyspnea on exertion Respiratory: Respiratory: Reports no additional respiratory complaints, Denies cough and Denies dyspnea on exertion Gastrointestinal: Gastrointestinal: Reports no additional gastrointestinal complaints, Denies abdominal pain, Denies constipation, Denies nausea and Denies vomiting Genitourinary: Genitourinary: Reports no additional male genitourinary complaints, Denies hematuria and Denies urinary frequency Musculoskeletal: Musculoskeletal: Reports no additional musculoskeletal complaints and Reports as per HPI Neurologic: Reports Normal hearing present Endocrine: Endocrine: Reports no additional endocrine complaints, Denies change in body appearance, Denies excessive sweating, Denies polyphagia, Denies polydipsia and Denies polyuria [facility] Past Medical History Medical History Adenomatous colon polyp AVN (avascular necrosis of bone) CKD (chronic kidney disease) Degenerative joint disease of knee Diabetic foot ulcer Diabetic neuropathy Diabetic vasculopathy Diastolic congestive heart failure Erectile dysfunction GERD (gastroesophageal reflux disease) Gout History of falling History of foot ulcer HLD (hyperlipidemia) Low bone mass Morbid obesity with BMI of 45.0-49.9, adult Open wound of left lower extremity FRANCISCA on CPAP Osteoarthritis Pacemaker PAD (peripheral artery disease) Paroxysmal atrial fibrillation Peripheral neuropathy Primary hypertension Prostate cancer screening 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 His daughter who is a registered nurse here at [facility] is very active in helpful in his care. Smoking status: Never smoker Second hand tobacco smoke exposure: No Alcohol intake: never Substance use: never Substance use type: does not use Living arrangements: with family Occupation/Education: retired Additional occupation/education comments: He is retired as a daycare provider Gender identity (if verbalized by the patient): Male Sexual Orientation
--- NOTE | 2021-05-10 12:20 | PM.IMHP ---
H&P: HPI History of Present Illness Date/Time: 05/10/21 12:20 Chief Complaint: left knee pain, bilateral diabetic foot ulcers. Narrative: 71-year-old male follows up in the [facility] wound clinic for re-evaluation of bilateral foot ulcers. He is currently awaiting a total knee arthroplasty by at [facility]. He underwent aspiration injection of the left knee approximately 2 weeks ago. He reports improvement in pain since that time. He has also began a strict diet and has lost approximately 12 lb. He is having some difficulties with controlling blood glucose levels. He has contacted his doctor regarding this. Review of Systems Constitutional: Constitutional: Reports no additional constitutional complaints, Denies excessive sweating, Denies fever(s) and Denies weight gain Eyes: Eyes: Reports no additional eye complaints and Denies change in vision ENT: Reports system reviewed and no additional complaints, except as documented and Reports Normal hearing present Cardiovascular: Cardiovascular: Denies chest pain, Denies diaphoresis, Denies leg ulcers and Denies dyspnea on exertion Respiratory: Respiratory: Reports no additional respiratory complaints, Denies cough and Denies dyspnea on exertion Gastrointestinal: Gastrointestinal: Reports no additional gastrointestinal complaints, Denies abdominal pain, Denies constipation, Denies nausea and Denies vomiting Genitourinary: Genitourinary: Reports no additional male genitourinary complaints, Denies hematuria and Denies urinary frequency Musculoskeletal: Musculoskeletal: Reports no additional musculoskeletal complaints and Reports as per HPI Neurologic: Reports Normal hearing present Endocrine: Endocrine: Reports no additional endocrine complaints, Denies change in body appearance, Denies excessive sweating, Denies polyphagia, Denies polydipsia and Denies polyuria [facility] Past Medical History Medical History Adenomatous colon polyp AVN (avascular necrosis of bone) CKD (chronic kidney disease) Degenerative joint disease of knee Diabetic foot ulcer Diabetic neuropathy Diabetic vasculopathy Diastolic congestive heart failure Erectile dysfunction GERD (gastroesophageal reflux disease) Gout History of falling History of foot ulcer HLD (hyperlipidemia) Low bone mass Morbid obesity with BMI of 45.0-49.9, adult Open wound of left lower extremity FRANCISCA on CPAP Osteoarthritis Pacemaker PAD (peripheral artery disease) Paroxysmal atrial fibrillation Peripheral neuropathy Primary hypertension Prostate cancer screening 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 His daughter who is a registered nurse here at [facility] is very active in helpful in his care. Smoking status: Never smoker Second hand tobacco smoke exposure: No Alcohol intake: never Substance use: never Substance use type: does not use Living arrangements: with family Occupation/Education: retired Additional occupation/education comments: He is retired as a daycare provider Gender identity (if verbalized by the patient): Male Sexual Orientation (i
--- NOTE | 2021-06-14 09:58 | PM.IMHP ---
H&P: HPI History of Present Illness Date/Time: 06/14/21 09:58 Chief Complaint: Bilateral Foot Ulcers Narrative: 71-year-old male follows up in the [facility] for re-evaluation of bilateral foot ulcers. He is currently awaiting a total knee arthroplasty by at [facility]. He has began a strict diet and has lost approximately 20 lb. No new wound concerns. Review of Systems Constitutional: Constitutional: Reports no additional constitutional complaints, Denies excessive sweating, Denies fever(s) and Denies weight gain Eyes: Eyes: Reports no additional eye complaints and Denies change in vision ENT: Reports system reviewed and no additional complaints, except as documented and Reports Normal hearing present Cardiovascular: Cardiovascular: Denies chest pain, Denies diaphoresis, Denies leg ulcers and Denies dyspnea on exertion Respiratory: Respiratory: Reports no additional respiratory complaints, Denies cough and Denies dyspnea on exertion Gastrointestinal: Gastrointestinal: Reports no additional gastrointestinal complaints, Denies abdominal pain, Denies constipation, Denies nausea and Denies vomiting Genitourinary: Genitourinary: Reports no additional male genitourinary complaints, Denies hematuria and Denies urinary frequency Musculoskeletal: Musculoskeletal: Reports no additional musculoskeletal complaints and Reports as per HPI Neurologic: Reports Normal hearing present Endocrine: Endocrine: Reports no additional endocrine complaints, Denies change in body appearance, Denies excessive sweating, Denies polyphagia, Denies polydipsia and Denies polyuria PMFSH Past Medical History Medical History Adenomatous colon polyp AVN (avascular necrosis of bone) CKD (chronic kidney disease) Degenerative joint disease of knee Diabetic foot ulcer Diabetic neuropathy Diabetic vasculopathy Diastolic congestive heart failure Erectile dysfunction GERD (gastroesophageal reflux disease) Gout History of falling History of foot ulcer HLD (hyperlipidemia) Low bone mass Morbid obesity with BMI of 45.0-49.9, adult Open wound of left lower extremity FRANCISCA on CPAP Osteoarthritis Pacemaker PAD (peripheral artery disease) Paroxysmal atrial fibrillation Peripheral neuropathy Primary hypertension Prostate cancer screening 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 His daughter who is a registered nurse here at [facility] is very active in helpful in his care. Smoking status: Never smoker Second hand tobacco smoke exposure: No Alcohol intake: never Substance use: never Substance use type: does not use Living arrangements: with family Occupation/Education: retired Additional occupation/education comments: He is retired as a daycare provider Gender identity (if verbalized by the patient): Male Sexual Orientation (if Verbalized by the Patient): Straight or Heterosexual Spiritual care concerns: No Meds Home Medications and Allergies Home Medications Medication Instructions Recorded Confirmed Type potassium chloride 20 mEq 20 meq PO QPM tablet
== END 2021-06-20 23:59 | disposition home or self-care (01) ==
LOC: ANHWOC 07:36
PROVIDERS: PCP Physician Assistant; Visit Provider Nurse Practitioner Family
DX: E11.621 Type 2 diabetes mellitus with foot ulcer (principal); L97.509 Non-pressure chronic ulcer of other part of unspecified foot with unspecified severity
CPT/HCPCS: 11042; 20610; 99211; 99212; G0463

== ENCOUNTER 2021-12-02 06:45 | Outpatient (CLI) | payer MEDICARE, SELFPAY ==
[2021-12-06 07:18] LABS: Thyroglobulin 0.1 ng/mL (2.8-40.9); Thyroglobulin Antibodies <1 IU/mL (<=1)
== END 2021-12-02 06:46 | disposition home or self-care (01) ==
LOC: ANHLAB 06:48
PROVIDERS: PCP Family Medicine; Visit Provider Radiology Radiation Oncology
DX: C73 Malignant neoplasm of thyroid gland (principal)
CPT/HCPCS: 36415; 84432; 84443; 86800

== ENCOUNTER 2021-12-09 08:51 | Outpatient (CLI) | payer MEDICARE, SELFPAY ==
[2021-12-12 03:52] LABS: Thyroglobulin 0.3 ng/mL (2.8-40.9); Thyroglobulin Antibodies <1 IU/mL (<=1)
== END 2021-12-09 08:52 | disposition home or self-care (01) ==
PROVIDERS: PCP Family Medicine; Visit Provider Radiology Radiation Oncology
DX: C73 Malignant neoplasm of thyroid gland (principal)
CPT/HCPCS: 36415; 84432; 84443; 86800

== ENCOUNTER 2021-12-16 09:53 | Outpatient (CLI) | payer MEDICARE, SELFPAY ==
[2021-12-20 06:22] LABS: Thyroglobulin 0.9 ng/mL (2.8-40.9); Thyroglobulin Antibodies <1 IU/mL (<=1)
== END 2021-12-16 09:54 | disposition home or self-care (01) ==
PROVIDERS: PCP Family Medicine; Visit Provider Radiology Radiation Oncology
DX: C73 Malignant neoplasm of thyroid gland (principal)
CPT/HCPCS: 36415; 84432; 84443; 86800

== ENCOUNTER 2022-02-15 10:29 | Outpatient (CLI) | payer MEDICARE, SELFPAY ==
[2022-02-15 17:02] LABS: Free T4 Free Thyroxine 2.42 ng/mL (0.78-2.19)
[2022-02-15 17:19] LABS: Thyroid Stimulating Hormone 0.031 uIU/mL (0.465-4.680)
== END 2022-02-15 10:30 | disposition home or self-care (01) ==
LOC: ANHWCLAB 10:32
PROVIDERS: PCP Family Medicine; Referring Provider Internal Medicine Endocrinology, Diabetes & Metabolism; Visit Provider Internal Medicine Endocrinology, Diabetes & Metabolism
DX: I48.0 Paroxysmal atrial fibrillation (principal); C73 Malignant neoplasm of thyroid gland
CPT/HCPCS: 36415; 84439; 84443

== ENCOUNTER 2022-08-24 11:40 | Outpatient (CLI) | payer MEDICARE, SELFPAY ==
[2022-08-24 13:18] LABS: Anion Gap 7 mmol/L (8-16); Blood Urea Nitrogen 47 mg/dL (9-20); Calcium 8.6 mg/dL (8.4-10.2); Carbon Dioxide 34 mmol/L (22-30); Chloride 97 mmol/L (98-107); Estimated Glomerular Filt Rate 35; Glucose 87 mg/dL (65-110); HDL Direct 40 mg/dL; Potassium 4.2 mmol/L (3.4-5.0); Sodium 138 mmol/L (137-145)
[2022-08-24 13:31] LABS: LDL Cholesterol Direct 62 mg/dL
[2022-08-24 13:35] LABS: Free T4 Free Thyroxine 2.18 ng/mL (0.78-2.19)
[2022-08-24 13:49] LABS: Thyroid Stimulating Hormone < 0.015 uIU/mL (0.465-4.680)
[2022-08-24 14:38] LABS: Creatinine Urine 67.6 mg/dL
[2022-08-24 15:26] LABS: MALB Creatinine Ratio < 8.9 mg/g (0-30); Microalbumin Urine Random < 6.0 mg/L (0-16.7)
== END 2022-08-24 11:41 | disposition home or self-care (01) ==
LOC: ANHWCLAB 11:44
PROVIDERS: PCP Family Medicine; Visit Provider Internal Medicine Endocrinology, Diabetes & Metabolism
DX: E11.42 Type 2 diabetes mellitus with diabetic polyneuropathy (principal); E03.9 Hypothyroidism, unspecified; C73 Malignant neoplasm of thyroid gland; E11.610 Type 2 diabetes mellitus with diabetic neuropathic arthropathy; Z79.4 Long term (current) use of insulin
CPT/HCPCS: 36415; 80048; 82043; 83718; 83721; 84439; 84443; 86800

== ENCOUNTER 2023-11-06 00:46 | Day surgery (SDC) | payer MEDICARE, SELFPAY ==
[2023-10-25 11:14] VITALS: BMI 42.2
--- NOTE | 2023-10-25 12:19 | PC.NURSE ---
Spoke with PATIENT regarding medication _ELIQUIS__. Pt. verbalizes understanding that the last dose of _ELIQUIS___ is to be taken on _11/03/2023__ and the Endoscopist will instruct them when to restart after the procedure.
--- NOTE | 2023-11-02 10:15 | SUR.PREOP ---
Patient called regarding upcoming procedure. Reviewed preop instructions, appointment times, and procedure prep.
[2023-11-06 06:30] VITALS: BP 135/88; PULSE 65; RESP 18; TEMP 36.1; O2SAT 100
[2023-11-06] MEDS: LACTATED RINGERS 1,000 ML 150 ML IV CONT (06:48)
--- NOTE | 2023-11-06 07:40 | PM.HPGS ---
History of Present Illness History of Present Illness Consent: Risks, benefits, and alternatives have been discussed and questions answered. Patient agrees to proceed with procedure. Chief complaint: HX colon polyps Narrative: Tank James is a 73 year old male with colon polyp ~ 5 years ago Review of Systems Constitutional: Constitutional: Denies headache(s) and Denies weakness Eyes: Eyes: Denies blurry vision ENT: Reports Normal hearing present, Denies headache(s) and Denies neck pain Cardiovascular: Cardiovascular: Denies chest pain and Denies dyspnea Respiratory: Respiratory: Denies dyspnea Gastrointestinal: Gastrointestinal: Reports no additional gastrointestinal complaints Genitourinary: Genitourinary: Denies dysuria Musculoskeletal: Musculoskeletal: Denies neck pain Integumentary/Breasts: Skin/Breast: Denies dry skin Neurologic: Reports Normal hearing present, Denies headache(s) and Denies weakness Psychiatric: Psychiatric: Denies anxiety Endocrine: Endocrine: Denies change in body appearance Hematologic/Lymphatic: Hematologic/Lymphatic: Denies easy bleeding Allergic/Immunologic: Allergic/Immunologic: Denies urticaria PMFSH Past Medical History Medical History Adenomatous colon polyp Atrial fibrillation AVN (avascular necrosis of bone) Chronic kidney disease CKD (chronic kidney disease) Degenerative joint disease of knee Diabetic foot ulcer Diabetic neuropathy Diabetic vasculopathy Diastolic congestive heart failure Erectile dysfunction GERD (gastroesophageal reflux disease) Gout History of colon polyps History of foot ulcer HLD (hyperlipidemia) Hyperlipidemia LDL goal <100 Hypogonadism in male Hypothyroidism (acquired) Knee joint effusion Metabolic syndrome Morbid obesity with BMI of 45.0-49.9, adult Multinodular goiter Nocturia FRANCISCA on CPAP Osteoarthritis Osteopenia Pacemaker PAD (peripheral artery disease) Paroxysmal atrial fibrillation Peripheral neuropathy Primary hypertension Tachy-jourdan syndrome Thyroid cancer Type 2 diabetes mellitus with diabetic neuropathic arthropathy, with long-term current use of insulin Last A1C as of 03/09/20-7.4 Ulcer of heel Surgical History Surgical History H/O thyroidectomy 10/07/2021 History of foot surgery multiple foot ulcers History of heart surgery 07/15/14, pacemaker installed History of total knee replacement 02/01/22, left knee Family History Family History Other Cerebrovascular accident Diabetes mellitus Family history of arthritis Family history of cardiovascular disease Family history of gout Family history of hepatitis Family history of malignant neoplasm Family history of malignant neoplasm of thyroid Family history of thyroid disease Hypertension Social History Social History (Updated 10/25/23 @ 11:41 by Es Roberson [facility]) Social History: Patient lives at home with his who is suffering from dementia. His daughter who is a registered nurse here at [facility] is very active in helpful in his care. Smoking status: Never smoker Second hand tobacco smoke exposure: No Alcohol intake: current Substance use: never Substance use type: does not use Do You Feel Safe in your Home?: Yes Lack of Transportation: No Lack of Food: Never True Current Housing: I Have Housing Concerned About Future Housing: No Difficulty Paying Gas/Electric Bills: No Difficulty Paying for Meds: No Currently Unemployed: No Education: Bachelor's Degree Difficulty w/ Childcare or Family Care: No Living arrangements: with family Occupation/Education: retired Additional occupation/education comments: He is retired as a daycare provider Gender identity (if verbalized by the patient): Male Sexual Orientation (if Verb
--- NOTE | 2023-11-06 07:53 | WPDANESEPPF ---
Anes - Initial Pre Proc Eval Procedure: Operation Date: 11/06/23 07:30 Proposed Procedures p Colonoscopy - Maurilio Nunez MD Date/Time: 11/06/23 07:53 Surgeon: Maurilio Nunez MD Pre Op Diagnosis: HX colon polyps Patient Data Age: 73 Gender: M Height: 1.83 m Weight: 138 kg Last Vital Signs Temp 97 F L 11/06/23 06:30 Pulse 65 11/06/23 06:30 Resp 18 11/06/23 06:30 BP 135/88 11/06/23 06:30 Pulse Ox 100 11/06/23 06:30 O2 Del Method Room Air 11/06/23 06:30 Allergies Allergy/AdvReac Type Severity Reaction Status Date / Time phenylephrine Allergy Intermediate Unknown Verified 11/06/23 06:28 [From Eb-Synephrine (phenylephrine)] Home Medications Medication Instructions Recorded Confirmed Type potassium chloride 20 mEq 20 meq PO QPM 10/28/19 10/25/23 History tablet,extended release safety needles 31 gauge x 5/16 #100 ea 11/10/19 10/25/23 Rx apixaban 5 mg tablet (Eliquis) 5 mg PO BID 11/18/19 11/06/23 History bumetanide 1 mg tablet 2 mg PO BID 11/18/19 10/25/23 History sotalol 80 mg tablet 80 mg PO BID 02/26/20 10/25/23 History rosuvastatin 5 mg tablet 5 mg PO DAILY 07/15/20 10/25/23 History loratadine 10 mg tablet (Claritin) 10 mg PO DAILY 12/22/20 10/25/23 History calcium carbonate 600 mg calcium 600 mg PO DAILY 02/17/21 10/25/23 History (1,500 mg) tablet (Calcium) lancets 33 gauge (OneTouch Delica #300 ea 02/28/21 10/25/23 Rx Lancets) blood sugar diagnostic #400 ea 08/09/21 10/25/23 Rx blood sugar diagnostic (Blood #300 ea 09/29/21 10/25/23 Rx Glucose Test strips) blood-glucose meter (Blood Glucose #1 ea 09/29/21 10/25/23 Rx Monitoring kit) blood-glucose meter,continuous #1 ea 11/04/21 10/25/23 Rx (Dexcom G6 Equipment Records Supervisor) tramadol 50 mg tablet 50 mg PO BID PRN pain #30 tabs 12/19/21 10/25/23 Rx inulin 2 gram chewable tablet 2 g PO DAILY 02/15/22 10/25/23 History (Fiber Gummies) lisinopril 5 mg tablet 5 mg PO DAILY 02/15/22 10/25/23 History allopurinol 300 mg tablet 300 mg PO DAILY #90 tabs 10/24/22 10/25/23 Rx blood-glucose transmitter (Dexcom #3 ea 04/20/23 10/25/23 Rx G6 Transmitter device) levothyroxine 175 mcg tablet See Rx Instructions .Route 07/23/23 10/25/23 Rx .COMPLEX #90 tabs pregabalin 75 mg capsule 75 mg PO BID 90 days #180 caps 07/31/23 10/25/23 Rx pen needle, diabetic 31 gauge x #200 ea 10/23/23 10/25/23 Rx 3/16 (BD Ultra-Fine Mini Pen Needle) semaglutide 2 mg/dose (8 mg/3 mL) 2 mg (0.75 mL) subcut WEEKLY 10/25/23 10/26/23 Rx subcutaneous pen injector (Ozempic) days #9 mL insulin NPH-regular 70-30 U-100 98 unit subcut DAILY 10/26/23 10/26/23 History insulin 100 unit/mL subcutaneous pen (Humulin 70/30 U-100 KwikPen) blood-glucose sensor (Dexcom G6 #9 ea 10/29/23 Rx Sensor device) diclofenac potassium 50 mg tablet 50 mg PO BID #60 tabs 10/29/23 Rx Patient hx anesthesia problems: none Family hx anesthesia problems: none Results Review: All pre-operative results and documents have been reviewed as part of the pre-operative evaluation. COUNTS INCLUDE 234 BEDS AT THE [facility] Past Medical History Medical History (Reviewed 10/25/23 @ 11:36 by Deandre Whyte [facility]) Adenomatous colon polyp Atrial fibrillation AVN (avascular necrosis of bone) Chronic kidney disease CKD (chronic kidney disease) Degenerative joint disease of knee Diabetic foot ulcer Diabetic neuropathy Diabetic vasculopathy Diastolic congestive heart failure Erectile dysfunction GERD (gastroesophageal reflux disease) Gout History of colon polyps History of foot ulcer HLD (hyperlipidemia) Hyperlipidemia LDL goal <100 Hypogonadism in male Hypothyroidism (acquired) Knee joint effusion Metabolic syndrome Morbid obesity with BMI of 45.0-49.9, adult Multinodular goiter Nocturia FRANCISCA on CPAP Osteoarthritis Osteopenia Pacemaker PAD (peripheral artery disease) Paroxysmal atrial fibrillation Peripheral neuropathy Primary hypertension Tachy
[2023-11-06 07:58] VITALS: BP 98/54; PULSE 64; RESP 20; O2SAT 100
[2023-11-06 08:08] VITALS: BP 98/59; PULSE 63; RESP 20; O2SAT 100
[2023-11-06 08:18] VITALS: BP 110/70; PULSE 64; RESP 20; O2SAT 100
--- NOTE | 2023-11-06 08:24 | SUR.PHASEII ---
Dr. Balderas told patient to resume Eliquis today. Written on post procedure form. Dexcom blood glucose level 113 at 0820
== END 2023-11-06 08:33 | disposition home or self-care (01) ==
PROVIDERS: PCP Family Medicine; Visit Provider Internal Medicine Gastroenterology
PROC: 0DJD8ZZ Inspection of Lower Intestinal Tract, Via Natural or Artificial Opening Endoscopic (ICD-10-PCS; CPT 45378; principal; 2023-11-06 07:30)
DX: Z12.11 Encounter for screening for malignant neoplasm of colon (principal); Z86.010 Personal history of colon polyps; N18.9 Chronic kidney disease, unspecified; E11.22 Type 2 diabetes mellitus with diabetic chronic kidney disease; I50.30 Unspecified diastolic (congestive) heart failure; E78.5 Hyperlipidemia, unspecified; E03.9 Hypothyroidism, unspecified; E66.01 Morbid (severe) obesity due to excess calories; Z68.41 Body mass index [BMI] 40.0-44.9, adult; G47.33 Obstructive sleep apnea (adult) (pediatric); I48.0 Paroxysmal atrial fibrillation; Z95.0 Presence of cardiac pacemaker; I13.0 Hypertensive heart and chronic kidney disease with heart failure and stage 1 through stage 4 chronic kidney disease, or unspecified chronic kidney disease; Z85.850 Personal history of malignant neoplasm of thyroid; Z79.4 Long term (current) use of insulin
CPT/HCPCS: G0105; J2704; J7120

== ENCOUNTER 2023-12-20 07:52 | Outpatient (CLI) | payer MEDICARE, SELFPAY ==
--- NOTE | ~2023-12-20 | US_ITS ---
EXAMINATION: US arterial ankle brachial ind DATE: 12/20/2023 08:49 INDICATION: Peripheral vascular disease. Foot ulceration. TECHNIQUE: Segmental pressures and plethysmographic and Doppler waveforms of the brachial and lower e xtremity arteries were obtained. COMPARISON: None. FINDINGS: Right and left brachial artery pressures of 109 mm Hg and 114 mm Hg, respectively, are concordant (no rmal difference <= 30 mmHg). The right ankle-brachial index (HOME) is unable to be obtained due to inability to occlude the vessels (normal >= 0.9-1.0). The right great toe-brachial index (TBI) is 0.74 (normal >= 0.65). Arterial Dop pler waveforms are biphasic with brisk systolic upstrokes at both right posterior tibial and dorsalis pedis arteries. The left HOME is unable to be obtained due to inability to occlude the vessels. The left TBI is 0.70. Arterial Doppler waveforms are biphasic with brisk systolic upstrokes at both left posterior tibial a nd dorsalis pedis arteries. IMPRESSION: 1. No significant arterial occlusive disease to the bilateral lower limbs with normal bilateral TBIs. Reviewed, dictated and finalized at location L. M AUDITOR
== END 2023-12-20 07:53 | disposition home or self-care (01) ==
PROVIDERS: PCP Family Medicine; Visit Provider Family Medicine
DX: I73.9 Peripheral vascular disease, unspecified (principal)
CPT/HCPCS: 93922; 99213; G0463

== ENCOUNTER 2024-01-31 07:58 | Outpatient (RCR) | payer MEDICARE, SELFPAY ==
[2023-11-09 09:39] VITALS: BMI 41.6
== END 2024-02-07 23:59 | disposition home or self-care (01) ==
LOC: ANHWOC 07:58
PROVIDERS: PCP Family Medicine; Visit Provider Physician Assistant Medical
DX: L97.529 Non-pressure chronic ulcer of other part of left foot with unspecified severity (principal); E11.621 Type 2 diabetes mellitus with foot ulcer
CPT/HCPCS: 29445; 99213; 99214; A9270; G0463

== ENCOUNTER 2024-04-22 12:48 | Outpatient (CLI) | payer MEDICARE, SELFPAY ==
--- NOTE | ~2024-04-22 | US_ITS ---
US renal BI Ordering provider: Yoandy Brizuela MD History: . N20.0 - Calculus of kidney . Comparison: None. Technique: Ultrasound bilateral kidneys. Findings: RIGHT KIDNEY: Measures 12.3x 5.6x 5.8 cm in length which is normal in size. No renal cysts. No renal mass or visualized echogenic stones. Otherwise, normal echotexture and contour. No hydronephrosis. No rmal renal cortical thickness. LEFT KIDNEY: Measures 13x 6.7x 7.1 cm in length which is normal in size. No renal cysts. No renal mas s or visualized echogenic stones. Otherwise, normal echotexture and contour. No hydronephrosis. Yamilet l renal cortical thickness. Bilateral perinephric stranding. BLADDER: The volume is 146 mL.. . IMPRESSION: No stones or hydronephrotic changes. Reviewed, dictated and finalized at location A.
== END 2024-04-22 12:49 | disposition home or self-care (01) ==
PROVIDERS: PCP Family Medicine; Visit Provider Internal Medicine Nephrology
DX: N20.0 Calculus of kidney (principal); N18.32 Chronic kidney disease, stage 3b
CPT/HCPCS: 76775

== ENCOUNTER 2024-05-07 07:06 | Outpatient (RCR) | payer MEDICARE, SELFPAY | END 2024-05-13 23:59 | disposition home or self-care (01) | LOC: ANHWOC 07:06 | PROVIDERS: PCP Family Medicine; Visit Provider Physician Assistant Medical | DX: L97.509 Non-pressure chronic ulcer of other part of unspecified foot with unspecified severity (principal) | CPT/HCPCS: 99213; A9270; G0463; L2116 ==

== ENCOUNTER 2024-05-23 13:45 | Emergency (ER) | payer MEDICARE, SELFPAY ==
[2024-05-23 14:05] VITALS: BP 104/62; PULSE 100; RESP 15; TEMP 36.2; O2SAT 99
[2024-05-23 14:10] VITALS: BP 104/62; PULSE 100; RESP 15; TEMP 36.2; O2SAT 99
[2024-05-23 14:56] LABS: EDSTREPNEGPOS1 Presumptive Negative
--- NOTE | 2024-05-23 15:46 | ED.URI ---
HPI - URI/Sore Throat General Chief Complaint: Upper Respiratory Infection Stated Complaint: Covid + . Sore throat Time Seen by Provider: 05/23/24 14:33 Source: patient and RN notes reviewed Mode of arrival: ambulatory Limitations: no limitations History of Present Illness HPI Narrative: Patient presents today with a sore throat since yesterday. Tested positive at home this morning for COVID-19 with symptoms of cough, chills, subjective fever, and rhinorrhea for the last 4 days. He was instructed by his PCPs office to come to urgent care for strep test today. Denies congestion, shortness of breath, chest pain. He has been taking Tylenol for his symptoms. Related Data Home Medications Medication Instructions Recorded Confirmed potassium chloride 20 mEq 20 meq PO QPM 10/28/19 05/12/24 tablet,extended release apixaban 5 mg tablet (Eliquis) 5 mg PO BID 11/18/19 05/12/24 sotalol 80 mg tablet 80 mg PO BID 02/26/20 05/12/24 lisinopril 5 mg tablet 5 mg PO DAILY 02/15/22 05/12/24 cholecalciferol (vitamin D3) 25 25 mcg PO DAILY 02/26/24 05/12/24 mcg (1,000 unit) capsule bumetanide 1 mg tablet 2 mg PO QAM 04/01/24 05/12/24 calcium carbonate (Calcium 600) 600 mg PO BID 04/01/24 05/12/24 inulin 2 gram chewable tablet 5 g PO QAM AND QPM 04/01/24 05/12/24 (Fiber Gummies) Allergies Allergy/AdvReac Type Severity Reaction Status Date / Time phenylephrine Allergy Intermediate Unknown Verified 05/23/24 14:09 [From Eb-Synephrine (phenylephrine)] Review of Systems Review of Systems: CONSTITUTIONAL: Denies body aches, or sweats.+ subjective fever, chills EYES: Denies visual changes, redness, or discharge. ENT: Denies congestion, or otalgia.+ sore throat, rhinorrhea CARDIOVASCULAR: Denies chest pain, palpitations, or edema. RESPIRATORY: Denies dyspnea.+ cough GASTROINTESTINAL: Denies abdominal pain, nausea, vomiting, or diarrhea. GENITOURINARY: Denies dysuria or hematuria. SKIN: Denies rash, itching, or wounds. MUSCULOSKELETAL: Denies back pain, joint pain, or myalgia. NEUROLOGIC: Denies headache, numbness, tingling, or weakness. PSYCH: Denies depression or anxiety. [facility] Past Medical History Medical History Adenomatous colon polyp Atrial fibrillation AVN (avascular necrosis of bone) Chronic kidney disease CKD (chronic kidney disease) Degenerative joint disease of knee Diabetic foot ulcer Diabetic neuropathy Diabetic vasculopathy Diastolic congestive heart failure Erectile dysfunction GERD (gastroesophageal reflux disease) Gout History of colon polyps History of foot ulcer HLD (hyperlipidemia) Hyperlipidemia LDL goal <100 Hypogonadism in male Hypothyroidism (acquired) Knee joint effusion Metabolic syndrome Morbid obesity with BMI of 45.0-49.9, adult Multinodular goiter Nocturia FRANCISCA on CPAP Osteoarthritis Osteopenia Pacemaker PAD (peripheral artery disease) Paroxysmal atrial fibrillation Peripheral neuropathy Primary hypertension Tachy-jourdan syndrome Thyroid cancer Type 2 diabetes mellitus with diabetic neuropathic arthropathy, with long-term current use of insulin Last A1C as of 03/09/20-7.4 Ulcer of heel Surgical History Surgical History H/O thyroidectomy 10/07/2021 History of foot surgery multiple foot ulcers History of heart surgery 07/15/14, pacemaker installed History of total knee replacement 02/01/22, left knee Family History Family History Other Cerebrovascular accident Diabetes mellitus Family history of arthritis Family history of cardiovascular disease Family history of gout Family history of hepatitis Family history of malignant neoplasm Family history of malignant neoplasm of thyroid Family history of thyroid disease Hypertension Social History Social History (Reviewed
== END 2024-05-23 14:42 | disposition home or self-care (01) ==
PROVIDERS: Emergency Provider Nurse Practitioner; PCP Family Medicine
DX: U07.1 COVID-19 (principal); I13.0 Hypertensive heart and chronic kidney disease with heart failure and stage 1 through stage 4 chronic kidney disease, or unspecified chronic kidney disease; E11.22 Type 2 diabetes mellitus with diabetic chronic kidney disease; N18.9 Chronic kidney disease, unspecified; I50.30 Unspecified diastolic (congestive) heart failure; K21.9 Gastro-esophageal reflux disease without esophagitis; M10.9 Gout, unspecified; E78.5 Hyperlipidemia, unspecified; E66.01 Morbid (severe) obesity due to excess calories; Z68.41 Body mass index [BMI] 40.0-44.9, adult; G47.33 Obstructive sleep apnea (adult) (pediatric); M19.90 Unspecified osteoarthritis, unspecified site; M85.80 Other specified disorders of bone density and structure, unspecified site; Z95.0 Presence of cardiac pacemaker; I73.9 Peripheral vascular disease, unspecified; I48.0 Paroxysmal atrial fibrillation; E11.42 Type 2 diabetes mellitus with diabetic polyneuropathy; E89.0 Postprocedural hypothyroidism; Z85.850 Personal history of malignant neoplasm of thyroid; Z96.652 Presence of left artificial knee joint
CPT/HCPCS: 87081; 87880; 99213; G0463

== ENCOUNTER 2024-08-13 07:45 | Outpatient (RCR) | payer MEDICARE, SELFPAY ==
--- NOTE | ~2024-08-13 | XR_ITS ---
EXAMINATION: XR toe 1st LT min 2V DATE: 07/30/2024 10:01 INDICATION: Left great toe wound and erythema. TECHNIQUE: 3 views of left great toe were obtained. COMPARISON: Left foot radiographs 03/01/2021 FINDINGS: Pes planus is noted. No fracture. There is polyarticular osteoarthritis in the mid foot, se celestine at second first metatarsal joint. There are chronic erosions at first metatarsophalangeal joint. There is mild osteoarthritis of first interphalangeal joint. IMPRESSION: 1. Chronic erosions of first metatarsophalangeal joint, most likely gout. 2. Polyarticular osteoarthritis. Reviewed, dictated and finalized at location A.
== END 2024-08-19 23:59 | disposition home or self-care (01) ==
LOC: ANHWOC 07:45
PROVIDERS: PCP Family Medicine; Visit Provider Family Medicine
DX: L97.509 Non-pressure chronic ulcer of other part of unspecified foot with unspecified severity (principal)
CPT/HCPCS: 73660; 99213; 99214; A9270; G0463

== ENCOUNTER 2024-12-03 07:33 | Outpatient (CLI) | payer MEDICARE, SELFPAY ==
--- OUTSIDE RECORDS SUMMARY | 2024-12-03 07:45 | XMS_ITS | Clinical Summary ---
Author Organization [facility] [place] [address] Address [address] [place] [address] Care Team Providers Care Circuit Manager Name Role Phone Julieta Mulligan MD Unavailable [phone] Maggi Okeefe MD Primary Care Provider [phone] Jaci Castro MD Unavailable Allergies Active Allergy Reactions Criticality Noted Date Comments Phenylephrine Redness Low 10/07/2020 Medications allopurinol (ZYLOPRIM) 300 mg tablet Take 1 tablet (300 mg total) by mouth daily Active pregabalin (LYRICA) 75 mg capsule Take 1 capsule (75 mg total) by mouth 2 (two) times a day 11/26/19 21 Active famotidine (PEPCID) 20 mg tabletIndication s:gastroesophage al reflux disease Take 1 tablet (20 mg total) by mouth addiction medicine physician before breakfast Active loratadine (CLARITIN) 10 mg tabletIndication s:Allergic Rhinitis Take 1 tablet (10 mg total) by mouth addiction medicine physician before breakfast Active levothyroxine (SYNTHROID) 175 mcg tabletIndication s:Adjunct to Surgery or Radiotherapy for Thyroid Carcinoma Take 1 tablet (175 mcg total) by mouth daily 11/15/19 21 Active cholecalciferol (VITAMIN D-3) 16913 unit capsule Take 1 capsule (10,000 Units total) by mouth addiction medicine physician before breakfast Active calcium carbonate (CALCIUM 600 ORAL) Take 600 mg by mouth 2 (two) times a day after breakfast and dinner Active psyllium seed, with sugar, (FIBER ORAL) Take 2 tablet/chew tab by mouth daily with dinner Active HumuLIN 70/30 100 unit/mL pen for injection as directed 02/24/20 22 Active Ozempic 2 mg/dose (8 mg/3 mL) pen injector injection 02/23/20 22 Active diclofenac (CATAFLAM) 50 mg tablet 03/12/20 22 Active traMADoL (ULTRAM) 50 mg tablet Take 1 tablet (50 mg total) by mouth every 6 (six) hours as needed for pain Active Power Fingerprinting G6 Sensor device REPLACE EVERY 10 DAYS 01/12/20 23 Active TechLITE Pen Needle 31 gauge x 3/16 needle 2 (two) times a day 01/09/20 23 Active rosuvastatin (CRESTOR) 5 mg tablet TAKE 1 TABLET(5 MG) BY MOUTH DAILY 90 tablet 1 09/24/20 23 Active Additional Information Patient taking differently: 10 mgoral Daily, Reported on 05/20/2024 cephalexin (KEFLEX) 500 mg capsule TAKE 1 CAPSULE BY MOUTH EVERY 12 HOURS FOR 7 DAYS 11/08/19 24 Active apixaban (Eliquis) 5 mg tablet TAKE 1 TABLET BY MOUTH TWICE DAILY 180 tablet 2 03/14/20 24 Active lisinopriL (PRINIVIL,ZESTRI L) 5 mg tablet TAKE 1 TABLET(5 MG) BY MOUTH DAILY 90 tablet 1 06/09/20 24 Active sotaloL (BETAPACE) 80 mg tablet TAKE 1 TABLET BY MOUTH TWICE DAILY 180 tablet 09/22/20 24 Active bumetanide (BUMEX) 1 mg tablet Take 2 tabs in the am and one tab in the pm 270 tablet 11/17/19 25 Active potassium chloride ER 20 mEq CR tablet Take 1 tablet (20 mEq total) by mouth daily 90 tablet 11/17/19 25 Active bumetanide (BUMEX) 1 mg tablet TAKE 2 TABLETS BY MOUTH EVERY MORNING AND 1 TABLET EVERY EVENING 270 tablet 2 08/27/20 23 025 Discontin ued(Reord er) potassium chloride ER 20 mEq CR tablet TAKE 1 TABLET(20 MEQ) BY MOUTH DAILY AFTER DINNER 90 tablet 2 02/11/20 24 025 Discontin ued(Reord er) Active Problems Problem Noted Date Diagnosed Date PVD (peripheral vascular disease) 07/23/2024 Assessment & Plan (07/23/2024 9:39 AM CDT): Impression: Patient denies any symptoms of claudication, ischemic rest pain. Patient has an open ulceration to the plantar surface of the left 1st toe that has been present since September and is slowly healing. Patient is currently being treated by Wound Clinic at [facility]. Patient has palpable distal pulses to bilateral lower extremities. Lower extremity arterial Doppler reveals falsely elevated ABIs to bilateral lower extremities due to noncompressibility of the vessels, digit pressors are normal to bilateral lower extremities. Triphasic waveforms are noted to the left lower extremity. Plan: No surgical recommendations at this time. Ulcer of left foot 05/20/2024 Primary osteoarthritis of left knee 01/19/2022 Overview (01/19/2022): Added automatically from request for surgery [id number] Papillary thyroid carcinoma 12/02/2020 Cancer Staging:Pathologic stage from 11/19/2020:No Stage Recommended(pT4a, cN0, cM0, Age at diagnosis: >= 55 years) - Signed by Julieta Mulligan MD on 12/02/2020 Mixed diabetic hyperlipidemi a associated with type 2 diabetes mellitus ([facility]) 06/23/2020 Hypertension associated with diabetes 06/23/2020 Benign hypertension with CKD (chronic kidney disease) stage III 03/12/2020 Chronic heart failure with p reserved ejection fraction ([facility]) 03/12/2020 Encounter for monitoring sotalol therapy 019 Chronic fatigue 06/09/2019 Atrial flutter ([facility]) 05/30/2018 Morbid obesity with BMI of 40.0-44.9, adult 05/22 FRANCISCA on CPAP 06/04/2017 Morbid obesity ([facility]) 12/08/2015 Overview (01/25/2017): Morbid obesity with BMI of 45.0-49.9, adult Chronic anticoagulation 12/08/2015 Overview (01/26/2017): Chronic anticoagulation Hypertensive heart disease with congestive heart failure 12/08/2015 Overview (01/26/2017): Hypertensive heart disease with diastolic heart failure Paroxysmal atrial fibrillation (CMS/HCC) 016 Overview (01/26/2017): Paroxysmal atrial fibrillation Type 2 diabetes mellitus 12/08/2015 Overview (01/26/2017): DM type 2 with diabetic dyslipidemia Assessment & Plan (07/23/2024 9:41 AM CDT): Impression: Chronic with good glucose control. Plan: Continue Humulin and Ozempic Presence of cardiac pacemaker 09/01/2014 Overview (12/20/2017): Medtronic Dual Pacemaker, Dx; SSS, AT/AF. DOI 07/15/[address] Gardner. Pt declines remote monitoring. Office pacer checks Q6 mo. Diabetic foot ulcer (CMS/HCC) 05/13/2014 Overview (01/25/2017): Ulcer of other part of foot Assessment & Plan (07/23/2024 9:44 AM CDT): Impression: Patient has a left plantar 1st toe ulceration that has been present since September after a fall. Patient is currently being treated by Wound Clinic at [facility]. Patient reports ulceration is healing and is small in size with no concern drainage. Plan: Recommend continue wound care as per Wound Clinic. -recommend x-ray and MRI contrast to the left 1st toe for further evaluation of underlying bone infection. Patient will require an open MRI due to having a pacemaker. -patient to follow-up in 2-3 weeks to review results. 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CMS/HCC) 05/13/2014 Overview (01/25/2017): Tachy-jourdan syndrome Encounters Date Type Department Care Team Description 11/19/2024 8:30 AM WAGON DRILL OPERATOR Ancillary Procedure [facility] Card[facility] [address] [place] [address] Presence of cardiac pacemaker; Tachycardia-bradycardi a (CMS/HCC) (HCC); Atrial fibrillation and flutter (HCC) from Last 3 Months Immunizations Name Administration Dates Next Due Pneumococcal Conjugate PCV 13 01/28/2019 Surgical History Surgery Date Site/Laterality Comments OTHER SURGICAL HISTORY Arrhythmias (PAF): OTHER SURGICAL HISTORY Sleep Apnea - CPAP: REPLACEMENT TOTAL KNEE Medical History Medical History Date Comments Hx Other Medical Arrhythmias (PA F) Hypertension Hypertension Hx Other Medical Obesity, Morbid Hx Other Medical Diabetes Type I I Congestive heart failure (CMS/HCC) (HCC) Congestive Heart Failure Hx Other Medical Congestive Hear t Failure Diatolic HF Hx Other Medical 2012 Sleep Apnea - C PAP Sleep apnea Family History Medical History Relation Name Comments Thyroid cancer Brother Heart failure Father Congestive hea rt failure; Other Father Cardiac arrhyth mias; Thyroid cancer Father Cancer, thyro id; Thyroid cancer Paternal Grandmother Thyroid cancer Sister Anesthesia problems Neg Hx Relation Name Status Comments Brother Father Paternal Grandmother Sister Social History Tobacco Use Types Packs/Day Years Used Date Smoking Tobacco: Never Smokeless Tobacco: Never Tobacco Cessation:Counseling Given: Not Answered Alcohol Use Standard Drinks/Week Comments No 0 (1 standard drink = 0.6 oz pur e alcohol) AUDIT-C Answer Date Recorded Q1: How often do you have a drink containing alc ohol? Never 02/02/2022 Average Number of Drinks Not on file 022 Q3: How often do you have si x or more drinks on one occasion? Never 02/02/2022 PHQ-2 Answer Date Recorded PHQ-2 Total Score (If total score is 3 or more points, staff should administer the PHQ-9) 0 02/03/2022 Sex and Gender Information Value Date Recorded Sex Assigned at Not on file Legal Sex Male 2:11 AM WAGON DRILL OPERATOR Gender Identity Not on file Sexual Orientation Not on file Obstetrics History Last Filed Vital Signs Vital Sign Reading Time Taken Comments Blood Pressure 128/85 07/23/2024 8:23 AM CDT Pulse 60 07/23/2024 8:23 AM CDT Temperature 36.3 C (97.3 F) 02/03/2022 8:05 AM CDT Respiratory Rate 16 05/20/2024 1:58 PM CDT Oxygen Saturation 100% 07/23/2024 8:23 AM CDT Inhaled Oxygen Concentration - - Weight 142 kg (313 lb) 05/20/2024 1:58 PM CDT Height 182.9 cm (6') 05/20/2024 1:58 PM CDT Body Mass Index 42.45 05/20/2024 1:58 PM CDT Plan of Treatment Health Maintenance Due Date Last Done Comments Albumin Creatinine Ratio, Urine 1950 Colon Cancer Screening-Colonoscopy 1950 Hepatitis C Screening 1950 Dilated Eye Exam 1950 Foot Exam 1950 Hepatitis B Screening 01/03/1968 Zoster Vaccine (1 of 2) 01/03/2000 Well Visit 65+ 2015 DTaP/Tdap/Td Vaccine (2 - Td or Tdap) 12/28/2016 12/28/2006 Hemoglobin A1C 07/26/2022 01/24/2022 Depression Screening 01/19/2023 01/19/2022, 01/20/20 22 eGFR 02/02/2023 02/02/2022, 02/2022, 12/02/2021 Fall Risk Assessment 02/03/2023 02/03/2022, 12/02/19 21 Covid-19 Vaccine (4 - 2023-2 5 season) 2024 09/02/2021, 01/14/2021, 12/24/2020 Influenza Vaccine (#1) 2024 09/02/2021 Lipid Panel 03/04/2025 03/04/2024, 03/23, 04/04/2022, Additional history exists Pneumococcal vaccine 65+ Completed 01/28/2019, 09/21 Medical Devices Implanted Type Area Ceramic Coater Machine Device Identifier Shelf Expiration Date Model / Serial / Lot [employer] Smartset Medium Viscosity Cement 40gm Bone Gentamicin [id number] - Sna - [id number] Implanted:Qty: 1 on 02/02/2022 by Dominik Reynaga MD at [facility] Bone Cement Left: Knee [employer] 03/21/2023 [id number] / NA / [id number] Description:Implant pause pe rformed [employer] Smartset Medium Viscosity Cement 40gm Bone Sterile 3122-040 - Sna - [id number] Implanted:Qty: 1 on 02/02/2022 by Dominik Reynaga MD at [facility] Bone Cement Left: Knee [employer] 02/18/2023 3122-040 / NA / [id number] Description:Implant pause pe rformed [employer] [id number] Attune Cemented Cruciate Retaining Knee Left 9 Component Femoral - Sna - [id number] Implanted:Qty: 1 on 02/02/2022 by Dominik Reynaga MD at [facility] Other - see comments Left: Knee [employer] [id number] 07/21/2031 [id number] / NA / [id number] [employer] [id number] Attune S+ Cement Fix Bearing Knee 9 Baseplate Tibial - Sna - [id number] Implanted:Qty: 1 on 02/02/2022 by Dominik Reynaga MD at [facility] Other - see comments Left: Knee [employer] [id number] 05/21/2031 [id number] / NA / [id number] [employer] [id number] Attune 7mm Cruciate Retaining Fix Bearing Knee 9 Insert Tibial - Sna - [id number] Implanted:Qty: 1 on 02/02/2022 by Dominik Reynaga MD at [facility] Other - see comments Left: Knee [employer] [id number] 05/21/2026 [id number] / NA / [id number] Pacemaker-07/15 Implanted:06/23 by Mike Gardner MD (Quantity not on file) Pacemaker Chest Medtronic SSS, AT/AF ADAPTA [id number] / [id number] / Procedures Procedure Name Priority Date/Time Associated Diagnosis Comments DEVICE CHECK - IN OFFICE Routine 11/19/2024 8:12 AM WAGON DRILL OPERATOR Presence of cardiac pacemaker Tachycardia-bradycard ia (CMS/HCC) (HCC) Atrial fibrillation and flutter (HCC) LIPID PANEL Routine 03/04/2024 2:20 PM CDT EGFR STAT 02/02/2022 10:16 AM CDT POCT HEMOGLOBIN A1C Routine 01/24/2022 9 :26 AM CDT from Last 3 Months or Most Recently Relevant to Health Maintenance Results * DEVICE CHECK - IN OFFICE (11/19/2024 8:12 AM WAGON DRILL OPERATOR) Anatomical Region Laterality Modality Other Narrative 11/20/2024 1:07 PM WAGON DRILL OPERATOR Medtronic Adapta Dual Pacemaker, Dx; SSS, AT/AF. DOI 07/15/[address] Gardner. Pt declines remote monitoring. Office pacer checks Q6 mo. Programmed to VDI mode-Bill Single PM. Supervising MD: Office pacemaker evaluation demonstrated normal device function. Left pectoral incision well healed without signs of infection noted. Battery function-2.69V, 17 months remaining battery life to EMILY. Appropriate lead measurements noted. Presenting rhythm-Aflutter VS-REPAIR ORDER CLERK. REPAIR ORDER CLERK-64.5%. AF burden-64.1%. Pt is taking Eliquis and Sotalol. No ventricular high rate episode noted. No changes made to device settings today. See scanned report. Office pacemaker f/u 05/06/2025. Racquel Eugene RN Rafael Nguyen MD [facility] PROC EDURES Final Result * Lipid panel (03/04/2024 2:20 PM CDT) Pathologist [facility] SCRIBED Cholesterol, Total 163 0 - 200 EXTERNAL LAB SCRIBED HDL 47 40 - 100 EXTERNAL LAB SCRIBED LDL 93 0 - 100 EXTERNAL LAB SCRIBED Triglycerides 133 0 - 150 EXTERNAL LAB Blood Historical Provider LAB BLOOD ORDERABLES Edit ed Result - Final EXTERNAL LAB * eGFR (02/02/2022 10:16 AM CDT) eGFR 49 mL/min/1. 73 m2 JACKIE CASPER Comment: Interpretive Data Reference Interval Normal >/= 90 mL/min/1.73m2 Mildly decreased* 60 - 89 mL/min/1.73m2 Mildly to moderately decreased 45 - 59 mL/min/1.73m2 Moderately to severely decreased 30 - 44 mL/min/1.73m2 Severely decreased 15 - 29 mL/min/1.73m2 Kidney Failure < 15 mL/min/1.73m2 *Relative to young adult level Estimated glomerular filtration rate is determined by the 2020 CKD-EPI equation recommended by the National Kidney Foundation (A Unifying Approach to GFR Estimation: Recommendations of the NKF-ASK Task Force on Reassessing the Inclusion of Race in Diagnosing Kidney Disease, JASN 202). The CKD-EPI equation should not be used for patients with unstable renal function and has not been validated in children and those over 70. Current interpretive data was last reviewed 2021. Blood 02/02/2022 10:1 6 AM CDT 02/02/2022 10:20 AM CDT Dominik Reynaga MD LAB BLOOD ORDERABLES Suri l Result Performing Organization Address [facility] Co de Phone Number [facility] [address] [facility] Department [place] [address] * (ABNORMAL) POCT hemoglobin A1c (01/24/2022 9:26 AM CDT) Hgb A1C, POC 6.2(H) 4.0 - 5.6 % [facility] Est Average Gluc POC 131 mg/dL [facility] Comment: The ADA recommends reporting an estimated Average Glucose (eAG) with all Hemoglobin A1c results using the equation derived from a study of 507 normal and diabetic adults. Minority populations were underrepresented and children were not included. (Diabetes Care 31:3385-6607, 2008). The eAG is not equivalent to a fasting glucose. Blood 01/24/2022 9:26 AM CDT 01/24/2022 9:26 AM CDT Dominik Reynaga MD POINT OF CARE TEST ORDERA BLES Final Result Performing Organization Address City/[facility]/ZIP Co de Phone Number [facility] [place] [address] from Last 3 Months or Most Recently Relevant to Health Maintenance Insurance MEDICARE [employer] [facility] MEDICARE [employer] [facility] MEDICARE [facility] MEDICARE SUPPLEMENT Advance Directives For more information, please contact: [phone] * Full Code (Latest Code Status on File) Date Activated Date Inactivated Comments 02/02/2022 11:10 AM 02/03/2022 5:21 PM Care Teams Circuit Manager Relationship Specialty Start Date End Date Maggi Okeefe MD [address] [place] [address] PCP - General Family Medicine 09/27/21 Julieta Mulligan MD [address] [place] [address] Resident Radiation Oncology 12/11/20 Jaci Castro MD [address] [place] [address] Radiation Oncologist Radiation Oncology 12/26/22
--- OUTSIDE RECORDS SUMMARY | 2024-12-03 07:46 | XMS_ITS | Patient Health Summary ---
Author Organization [facility] Address [address] [place] [address] Care Team Providers Care Jewelsmith Name Role Phone Inocente Nguyen MD Unavailable [phone] Junior Burch MD Unavailable [phone] Shamir Membreno MD Primary Care Provider Note from [facility],non-owned Affiliates and Associated Physician Practices is amultiple site organization consisting of ambulatory clinics and hospital sitesin [place], [place], [place] and [place]. This disclosure is being madepursuant to the Care Everywhere program and may not contain all information available regarding this patient. Last updated 18.[facility] Allergies * Phenylephrine(Eye Redness) * Eq Nasal Four(Eye Redness) -High Criticality,Inactive Medications * Be aware that medications may not be up to date on this document. Alwaysverify current medications with the patient. * HUMULIN 70/30 KWIKPEN pen(Started 05/03/2018) Inject 120 Units subcutaneously 2 times daily 120 AM and 60 PM 4 refills left * rosuvastatin (CRESTOR) 10 MG tablet(Started 04/02/2018) Take 1 tablet by mouth once daily 2 refills left * ELIQUIS 5 MG tablet(Started 03/28/2018) Take 1 tablet by mouth 2 times daily * bumetanide (BUMEX) 1 MG tablet(Started 04/02/2018) Take 1 tablet by mouth 2 times daily 2 pills AM 1 pill PM 2 refills left * sotalol (BETAPACE) 80 MG tablet(Started 06/03/2018) Take 1 tablet by mouth 2 times daily 3 refills left * diclofenac potassium (CATAFLAM) 50 MG tablet(Started 05/02/2018) Take 1 tablet by mouth once daily 1 refill left * ONETOUCH ULTRA TEST STRIPS test strip(Started 04/27/2018) Use 1 strip as directed 1 refill left * TRUEPLUS PEN NEEDLES 31G X 5 MM needle(Started 05/13/2018) 1 syringe by Injection route as directed 4 refills left * One Touch Delica Lancets(Started 04/27/2018) Use 1 device as directed 1 refill left * potassium chloride (KLOR-CON M) 20 MEQ tablet(Started 06/07/2018) Take 1 tablet by mouth once daily 3 refills left * allopurinol (ZYLOPRIM) 300 MG tablet Take 300 mg by mouth once daily * lisinopril (PRINIVIL;ZESTRIL) 5 MG tablet(Started 08/01/2020) Take 5 mg by mouth once daily * traMADol (ULTRAM) 50 MG tablet(Started 08/11/2020) Take 50 mg by mouth every 8 hours as needed * TRULICITY 1.5 MG/0.5ML injection(Started 09/03/2020) Inject 1.5 mL subcutaneously every 7 days * acetaminophen (TYLENOL) 325 MG tablet(Started 10/08/2020) Take 2 tablets by mouth every 6 hours as needed for Fever or Pain Maximum allowable Acetaminophen amount = 4 Grams (4000 mg) / 24 hours. * docusate sodium (COLACE) 100 MG capsule(Started 10/08/2020) Take 1 capsule by mouth 2 times daily * ibuprofen (MOTRIN) 400 MG tablet(Started 10/08/2020) Take 1 tablet by mouth every 8 hours as needed for Pain * famotidine (PEPCID) 20 MG tablet Take 20 mg by mouth once daily * loratadine (CLARITIN) 10 MG tablet Take 10 mg by mouth once daily * dextromethorphan polistirex ER (ROBITUSSIN 12 HOUR COUGH) liquid(Started 10/20/2020) Take 10 mL by mouth every 12 hours as needed for Cough 2 refills by 10/20/2021 * levothyroxine (SYNTHROID) 112 MCG tablet(Started 10/28/2020) Take 1 tablet by mouth daily before breakfast Active Problems Problem Noted Date Diagnosed Date Papillary thyroid carcinoma 10/25/2020 Family history of thyroid cancer 09/24/2020 Closed fracture of orbit with routine healing Resolved Problems Problem Noted Date Diagnosed Date Resolved Date Fistula, skin 10/25/2020 11/10/2020 Thyroid nodule 09/24/2020 10/25/2020 Social History Tobacco Use Types Packs/Day Years Used Date Smoking Tobacco: Never Smokeless Tobacco: Never Alcohol Use Standard Drinks/Week Comments No 0 (1 standard drink = 0.6 oz pur e alcohol) Sex and Gender Information Value Date Recorded Sex Assigned at Not on file Gender Identity Not on file Sexual Orientation Not on file Last Filed Vital Signs Vital Sign Reading Time Taken Comments Blood Pressure 114/76 11/10/2020 12:57 PM FLUX MIXER Pulse 65 11/10/2020 12:57 PM [facility]ER Temperature 36.2 C (97.1 F) 10/20/2020 3:23 PM [facility] Respiratory Rate 20 10/08/2020 8:28 AM FL[facility] M[facility]ER Oxygen Saturation 95% 10/08/2020 8:28 AM [facility]ER Inhaled Oxygen Concentration - - Weight 148.3 kg (327 lb) 11/10/2020 12:57 PM [facility] Height 182.9 cm (6') 11/10/2020 12:57 PM [facility] Body Mass Index 44.35 11/10/2020 12:57 PM [facility] Procedures * CARDIAC EKG ORDER(Performed 10/11/2020) * CALCIUM IONIZED WHOLE BLOOD(Performed 10/08/2020) Performed for S/P thyroidectomy * PTH INTACT W/O CALCIUM(Performed 10/08/2020) Performed for S/P thyroidectomy * CBC W/O DIFFERENTIAL(Performed 10/08/2020) Performed for S/P thyroidectomy * BASIC METABOLIC PANEL (CALCIUM TOTAL)(Performed 10/08/2020) Performed for S/P thyroidectomy * GLUCOSE - POINT OF CARE(Performed 10/08/2020) * GLUCOSE - POINT OF CARE(Performed 10/07/2020) * GLUCOSE - POINT OF CARE(Performed 10/07/2020) * PATHOLOGY TISSUE(Performed 10/07/2020) Performed for Thyroid nodule, History of thyroid cancer * BLOOD GASES ART COMPLETE [facility] OR(Performed 10/07/2020) Performed for Thyroid nodule * DISSECTION NECK(Performed 10/07/2020) Performed for Thyroid nodule, History of thyroid cancer * THYROIDECTOMY(Performed 10/07/2020) Performed for Thyroid nodule, History of thyroid cancer * ARTERIAL LINE NOTE(Performed 10/07/2020) * ENDOTRACHEAL TUBE NOTE(Performed 10/07/2020) * GLUCOSE - POINT OF CARE(Performed 10/07/2020) * SARS-COV-2 (COVID-19) IN HOUSE(Performed 10/04/2020) Performed for Thyroid nodule, Family history of thyroid cancer * TYPE + SCREEN PANEL(Performed 09/29/2020) Performed for Pre-op evaluation * CBC W/O DIFFERENTIAL(Performed 09/29/2020) Performed for Pre-op evaluation * BASIC METABOLIC PANEL (CALCIUM TOTAL)(Performed 09/29/2020) Performed for Pre-op evaluation * EKG 12-LEAD(Performed 09/29/2020) Performed for Pre-op evaluation Results * CARDIAC EKG ORDER (10/11/2020 5:21 PM FL[facility] M[facility]ER) Narrative 10/11/2020 5:21 PM FL[facility]ER Ordered by an unspecified provider. Scanned Document CARDIAC SERVICES ORD ERABLES * (ABNORMAL) CALCIUM IONIZED WHOLE BLOOD (10/08/2020 9:17 AM FLUX MIXER) Ionized Calcium Whole Blood 1.08 mmol/L 10/08/2020 9:26 AM FLUX M[facility]ER [facility] Adjusted Ionized Calcium 1.10(L) 1.19 - 1.34 mmol/L 10/08/2020 9:26 AM FLUX MIXER [facility] pH Whole Blood 7.43 7.35 - 7.45 10/08/2020 9:26 AM FL[facility]ER [facility] Blood WHOLE BLOOD SPECIMEN / Unknown Lab Venipuncture / Unknown 10/08/2020 9:17 AM FL[facility]ER 10/08/2020 9:23 AM FL[facility] M[facility]ER Adam Iniguez MD LAB - CHEMISTRY MOOSE WALLER [facility] [address] [address], [facility] [phone] * (ABNORMAL) PTH INTACT W/O CALCIUM (10/08/2020 9:17 AM FLUX MIXER) PTH Intact 87.2(H) 8.0 - 77.0 pg/mL 10/08/2020 9:52 AM [facility] Blood BLOOD SPECIMEN / Unknown Lab Venipuncture / Unknown 10/08/2020 9:17 AM FL[facility]ER 10/08/2020 9:23 AM FLUX MIXER Adam Iniguez MD LAB - CHEMISTRY MOOSE WALLER [facility] Organization Address City/State/ZIP Co de Phone Number [facility] [address] [place] [address], [facility] [phone] * (ABNORMAL) CBC W/O DIFFERENTIAL (10/08/2020 9:17 AM FL[facility]ER) Only the most recent of2 resultswithin the time period is included. WBC 12.9(H) 3.5 - 10.5 10 3/uL 10/08/2020 9:29 AM [facility] RBC 4.48 4.30 - 5.70 10 6/uL 10/08/2020 9:29 AM [facility] Hemoglobin 13.3(L) 13.5 - 17.5 g/dL 10/08/2020 9:29 AM [facility] Hematocrit 41.3 39.0 - 50.0 % 10/08/2020 9:29 AM [facility] MCV 92.2 81.0 - 97.0 fL 10/08/2020 9:29 AM [facility] MCH 29.7 28.0 - 34.0 pg 10/08/2020 9:29 AM [facility] MCHC 32.2 32.0 - 36.0 g/dL 10/08/2020 9:29 AM [facility] Platelet Count 139(L) 150 - 400 10 3/uL 10/08/2020 9:29 AM [facility] RDW-SD 50.7(H) 36.0 - 50.0 fL 10/08/2020 9:29 AM [facility] RDW-CV 15.0(H) 11.2 - 14.8 % 10/08/2020 9:29 AM [facility] MPV 11.7 9.3 - 12.8 fL 10/08/2020 9:29 AM [facility] nRBC Absolute 0.00 0 10 3/uL 10/08/2020 9:29 AM [facility] nRBC Auto 0.0 0 /100 WBC 10/08/2020 9:29 AM [facility] Blood BLOOD SPECIMEN / Unknown Lab Venipuncture / Unknown 10/08/2020 9:17 AM [facility]ER 10/08/2020 9:23 AM [facility]ER Adam Iniguez MD LAB - HEMATOLOGY ORD ERABLES Performing Organization Address [facility]/ZIP Co de Phone Number [facility] [address] [place] [address], [facility] [phone] * (ABNORMAL) BASIC METABOLIC PANEL (CALCIUM TOTAL) (10/08/2020 9:17 AM FL[facility]ER) Only the most recent of2 resultswithin the time period is included. BUN 23 7 - 26 mg/dL 10/08/2020 9:52 AM [facility] Creatinine 1.3(H) 0.6 - 1.2 mg/dL 10/08/2020 9:52 AM [facility] Sodium 138 136 - 145 mmol/L 10/08/2020 9:52 AM [facility] Potassium 4.5 3.5 - 4.5 mmol/L 10/08/2020 9:52 AM [facility] Chloride 97(L) 98 - 107 mmol/L 10/08/2020 9:52 AM [facility] CO2 26 22 - 29 mmol/L 10/08/2020 9:52 AM [facility] Glucose 247(H) 70 - 115 mg/dL 10/08/2020 9:52 AM [facility] Calcium 8.3(L) 8.4 - 10.2 mg/dL 10/08/2020 9:52 AM [facility] Anion Gap 20(H) 8 - 18 10/08/2020 9:52 AM [facility] BUN/Creatinine Ratio 18 7 - 23 10/08/2020 9:52 AM [facility] Osmolality Calculated 298 270 - 300 mOsm/kg 10/08/2020 9:52 AM [facility] eGFR 55(L) >60 mL/min/1.7 3 m2 10/08/2020 9:52 AM [facility] Blood BLOOD SPECIMEN / Unknown Lab Venipuncture / Unknown 10/08/2020 9:17 AM [facility]ER 10/08/2020 9:23 AM [facility]ER Adam Iniguez MD LAB - CHEMISTRY MOOSE WALLER Performing Organization Address City/[facility]/ZIP Co de Phone Number [address] [address], [facility] [phone] * (ABNORMAL) GLUCOSE - POINT OF CARE (10/08/2020 8:26 AM FL[facility]ER) Only the most recent of4 resultswithin the time period is included. Glucose WB/POC 229(H) 70 - 115 mg/dL 10/08/2020 8:31 AM FL[facility]ER [facility] Specimen Type Arterial/C apillary 10/08/2020 8:31 AM FL[facility] M[facility]ER [facility] Blood BLOOD SPECIMEN / Unknown 10/08/2020 8:26 AM FL[facility]ER 10/08/2020 8:31 AM FL[facility] M[facility]ER Adam Iniguez MD LAB - POINT OF CARE ORDERABLES Performing Organization Address [facility]/ZIP Co de Phone Number [address] [address], [facility] [phone] * PATHOLOGY TISSUE (10/07/2020 6:17 PM FL[facility]ER) Case Report Surgical Pathology Report Case: [id number] Authorizing Provider: Adam Iniguez MD Collected: 10/07/2020 06:17 PM Ordering Location: [facility] OP Received: 10/08/2020 05:09 AM Pathologist: aD Davis MD Specimen: Thyroid, TOTAL THYROID- RIGHT SUPERIOR 10/20/2020 3:02 PM FL[facility]ER [facility] Final Diagnosis Thyroid, total thyroidectomy: - Papillary thyroid carcinoma with both papillary and follicular features, 2.9 cm - The tumor is focally positive at the posterior surgical margin - pT2Nx 10/20/2020 3:02 PM FL[facility] M[facility]ER [facility] Microscopic Description and Comment In a background of nodular goiter and adenomatous hyperplasia, the large right lobe nodule show nuclear crowding, grooving, clearing, and intranuclear inclusions. The architecture has both follicular and papillary features. The adenomatous hyperplasia on block A6 is positive for thyroglobulin, while negative for synaptophysin and chromogranin. Morphology and immunophenotype support the above diagnosis. 10/20/2020 3:02 PM [facility] Clinical History 10/20/2020 3:02 PM [facility] Gross Description The requisition and specimen are identified with the patient's name, Tank James. Received in formalin, specimen A is 13.3 g total thyroidectomy specimen consisting of right lobe (4.7 x 3.1 x 2.7 cm), left lobe (4.3 x 3.4 x 2.2 cm), is Basilio 2.2 x 1.8 x 1.4 cm) and pyramidal lobe (3.1 x 1.0 x 0.5 cm). The specimen is oriented with a suture at right superior lobe. The capsule is purple ovgel with brown-vogel fibrous adhesions. The anterior surface is inked black and the posterior surface is inked blue. The specimen is serially sectioned from superior to inferior revealing 2 pink-pale vogel nodule in right lobe, one node in isthmus and one nodule in left lobe. The right lobe nodules 0.6 x 0.5 x 0.4 cm and 2.9 x 2.1 x 1.8 cm. The smaller nodule is abutting anterior margin and larger nodule is abutting both anterior and posterior margin. A 1.5 x 1.5 x 1.2 cm area dark red-purple vogel area of cystic degeneration is abutting larger and smaller nodule in right lobe. A 2.1 x 1.1 x 0.8 cm gohx-ubnw-arb node your is found in isthmus abutting both anterior and posterior margin. A 0.3 x 0.2 x 0.2 cm pale vogel hard nodule/calculus is present in left lower thyroid lobe abutting posterior surface. The rest of the left lobe parenchyma is purple vogel and cystic and hemorrhagic. Cut surfaces off pyramidal lobe show [id number]-qsmv-ulw soft cut surfaces with no distinct lesion. The mass lesion doesn't appear to have well defined capsule. Campaign Marketing Manager sections are submitted as follows: A1-A2 small nodule in right superior thyroid, A3 section of larger nodule in right superior thyroid lobe, A4 section of larger nodule in right mid thyroid lobe, A5 section of larger nodule in right lower thyroid lobe, perpendicular A6-A8 section from superior, medial and inferior level, respectively A9 left lower lobe with nodule A-10 left lobe, medial, A-11 section of pyramidal lobe. IY 10/20/2020 3:02 PM [facility] Disclaimer The performance characteristics of all immunohistochemical and indirect immunofluorescence stains (if any) cited in this report were determined by the Histopathology Laboratory of [facility]. Some of these tests were developed by our own laboratory and have not been cleared or approved by the US Food and Drug Administration. The FDA does not require this test to go through premarket FDA review. These tests are used for clinical purposes. They should not be regarded as investigational or for research. This laboratory is certified under the Clinical Laboratory Improvement Amendments (CLIA) as qualified to perform high complexity clinical laboratory testing. This case has been personally reviewed and interpreted by the attending (teaching) pathologist. 10/20/2020 3:02 PM [facility] Synoptic Report THYROID GLAND (THYROID GLAND: RESECTION - All Specimens) 8th Edition - Protocol posted: 06/18/2019 SPECIMEN Procedure: Total thyroidectomy TUMOR Tumor Focality: Unifocal Tumor Characteristics: Tumor Site: Right lobe Histologic Type: Papillary carcinoma Tumor Size (Centimeters): Greatest Dimension (Centimeters): 2.9 cm Extrathyroidal Extension: Not identified Angioinvasion (vascular invasion): Not identified Lymphatic Invasion: Not identified Margins: Involved by carcinoma Site(s) of Involvement: Focal posterior margin LYMPH NODES Regional Lymph Nodes: No lymph nodes submitted or found PATHOLOGIC STAGE CLASSIFICATION (pTNM, AJCC 8th Edition) Primary Tumor (pT): pT2 Regional Lymph Nodes (pN): pNX 10/20/2020 3:02 PM [facility] Embedded Images 10/20/2020 3:02 PM [facility] Biopsy, Excision SPECIMEN FROM THYROID OBTAINED BY THYROIDECTOMY / Unknown 10/07/2020 6:17 PM [facility] 10/08/2020 5:09 AM FL[facility]ER Comment:Pre-op diagnosis: THYROID NODULE, HISTORY THYROID CANCER Adam Iniguez MD LAB - PATHOLOGY/CYTO LOGY ORDERABLES [facility] [address] [place], [place] [id number] [place] [address] * (ABNORMAL) BLOOD GASES ART COMPLETE [facility] OR (10/07/2020 3:54 PM [facility]) pH Arterial 7.40 7.35 - 7.45 10/07/2020 4:01 PM [facility] pCO2 Arterial 49(H) 35 - 45 mmHg 10/07/2020 4:01 PM [facility] pO2 Arterial 85 71 - 95 mmHg 10/07/2020 4:01 PM [facility] HCO3 Arterial 30.0(H) 22.0 - 26.0 mmol/L 10/07/2020 4:01 PM [facility] TCO2 Arterial 31.5(H) 25.0 - 29.0 mmol/L 10/07/2020 4:01 PM [facility] Base Excess Arterial 4.3(H) -2.0 - 2.0 mmol/L 10/07/2020 4:01 PM [facility] Hemoglobin Arterial 13.2(L) 13.5 - 17.5 g/dL 10/07/2020 4:01 PM [facility] Oxyhemoglobin Arterial 95.8 95.0 - 100.0 % 10/07/2020 4:01 PM [facility] Carboxyhemoglobin 0.4 0.0 - 3.0 % 10/07/2020 4:01 PM [facility] Methemoglobin 0.3 0.0 - 2.0 % 10/07/2020 4:01 PM [facility] FI O2 Arterial 28.0 % 10/07/2020 4:01 PM [facility] Ionized Calcium Whole Blood 1.14 mmol/L 10/07/2020 4:01 PM [facility] Adjusted Ionized Calcium 1.14(L) 1.19 - 1.34 mmol/L 10/07/2020 4:01 PM [facility] Sodium Whole Blood 133(L) 135 - 145 mmol/L 10/07/2020 4:01 PM [facility] Potassium Whole Blood 4.1 3.5 - 5.5 mmol/L 10/07/2020 4:01 PM [facility] Chloride Whole Blood 100(L) 101 - 111 mmol/L 10/07/2020 4:01 PM [facility] Glucose Whole Blood 157(H) 70 - 110 mg/dL 10/07/2020 4:01 PM [facility]ER [facility] Lactic Acid Whole Blood 2.3 0.5 - 3.4 mmol/L 10/07/2020 4:01 PM [facility] Blood ARTERIAL BLOOD SPECIMEN / Unknown Venipuncture / Unknown 10/07/2020 3:54 PM [facility]ER 10/07/2020 3:57 PM [facility]ER Marlen Alex MD LAB - BLOOD GASES ORDERABLES [facility] [address] [place] [address], [facility] [phone] * Arterial Line Placement (10/07/2020 3:38 PM FLUX [facility]ER) Narrative Mary Ellen Hou MD - 10/07/2020 3:38 PM FLUX M[facility]ER Mary Ellen Hou MD 10/07/2020 7:36 PM Arterial Line Placement Procedure Note Procedure: Arterial Line (06471). Staff Section Anesthesia Provider: Oseas Shaw DO, Performed the procedure Marlen Alex MD GENERAL ANESTHESIA ORDERABLES * ETT LINE PERFORMABLE (10/07/2020 3:16 PM FL[facility]ER) Narrative Mary Ellen Hou MD - 10/07/2020 3:16 PM FLUX M[facility]ER Mary Ellen Hou MD 10/07/2020 7:36 PM Endotracheal Tube Placement: Patient Location: OR. Intubation Event Date/Time: 10/07/2020 3:16 PM Procedure: intubation (51479). Procedure Section: Sedation: under general anesthesia. Indications for Airway Management: anesthesia Procedure pretreatments used? No Induction: standard IV Patient Position: ramp/troop pillow Mask Ventilation: easy. Blade Type: Video Blade Size: 4 Laryngoscopy View: grade 1 (full cords) Intubation Adjuncts: stylet and video laryngoscope Tube: nerve integrity monitoring tube Placement: oral Tube type: cuff - inflated Tube Size (MM): 8 Depth of Insertion (CM): 26 Measured From: teeth Cuff Inflated With: air Number of Attempts: 1. Placement Verified By: direct visualization, bilateral breath sounds, chest auscultation and CO2 monitor Tube secured with: adhesive tape. Dentition unchanged? Yes Difficult Airway? No. Procedure Start Time: 10/07/2020 3:16 PM. Staff Section Anesthesia Provider: Oseas Shaw DO, Performed the procedure Provider #1: Marlen Alex MD. Marlen Alex MD GENERAL ANESTHESIA ORDERABLES * SARS-COV-2 (COVID-19) IN HOUSE (10/04/2020 11:52 AM FLUX M[facility]ER) COVID-19 PCR Not detected Not detected 10/04/2020 11:20 PM FL[facility] M[facility]ER [facility] Microbiology SPECIMEN FROM NASOPHARYNGEAL STRUCTURE / Unknown Collection / Unknown 10/04/2020 11:52 AM FLUX M[facility]ER 10/04/2020 11:52 AM FL[facility] M[facility]ER Narrative [facility] - 10/04/2020 11:20 PM FLUX MIXER This nucleic acid amplification assay performance was validated by [facility]. This test has been authorized by the Food and Drug administration (FDA)under an Emergency Use Authorization (EUA). This test has been validated in accordance with the FDA's guidance document Policy for Diagnostic Testing in Laboratories Certified to perform High Complexity Testing under CLIA prior to Emergency Use Authorization for Coronavirus Disease-2019 during the Public Health Emergency issued on December 20, 2019. FDA independent review of this validation is pending. This test is only authorized for the duration of time the declaration that circumstances exist justifying the authorization of emergency use of in vitro diagnostic tests for detection of SARS-CoV-2 virus and/or diagnosis of COVID-19 infection under section 564(b)(1) of the Act, 21 U.S.C 360bbb-3 (b)(1), unless the authorization is terminated or revoked sooner. Fact Sheets for this EUA assay are available upon request. Adam Iniguez MD LAB - MICROBIOLOGY O RDERABLES [facility] [address] [place] [address], [facility] [phone] * TYPE + SCREEN PANEL (09/29/2020 1:28 PM FL[facility] M[facility]ER) Antibody Screen NEG 0 2:45 PM FL[facility]ER [facility] B[facility]OD BANK LAB ABO Rh A NEG 09/29/2020 2:45 PM FL[facility]ER [facility] B[facility]OD BANK LAB Blood Bank BLOOD SPECIMEN / Unknown Lab Venipuncture / Unknown 09/29/2020 1:28 PM FL[facility] M[facility]ER 09/29/2020 1:56 PM FLUX MIXER Khloe Partida [facility] LAB - BLO OD BANK ORDERABLES Performing Organization Address City/[facility]/ZIP Co de Phone Number [facility] B[facility]OD BANK LAB [address] [place] [address], [facility] [phone] * EKG 12-LEAD (09/29/2020 12:54 PM FL[facility] M[facility]ER) Ventricular Rate 72 BPM [facility] MUSE QRS Duration ms 146 ms [facility] MUSE Q-T Interval ms 452 ms [facility] MUSE QTC Calculation (Bezet) 494 ms [facility] MUSE Calculated R [place] -70 degrees [facility] MUSE Calculated T [place] 25 degrees [facility] MUSE Interpretation EKG ATRIAL FIBRILLATION LEFT AXIS DEVIATION RIGHT BUNDLE BRANCH BLOCK T WAVE ABNORMALITY, CONSIDER LATERAL ISCHEMIA ABNORMAL ECG NO PREVIOUS ECGS AVAILABLE Confirmed by fellow Yenifer Watson ([id number]) on 10/04/2020 8:19:07 AM Confirmed by Ray Burns ([id number]) on 10/20/2020 10:18:00 AM [facility] MUSE 09/29/2020 12:5 4 PM FLUX MIXER 10/20/2020 10:18 AM FLUX MIXER Khloe Partida [facility] ECG ORDER BRIDGET [facility] MUSE Care Teams Jewelsmith Relationship Specialty Start Date End Date Shamir Membreno MD [address] [place] [address] PCP - General 12/20/20 Inocente Nguyen MD [address] [facility] [address] [place] [address] Ophthalmology 06/27/18 Junior Burch MD [address] [facility] [address] [place] [address] Orthopedic Surgery 06/27/18
--- OUTSIDE RECORDS SUMMARY | 2024-12-03 07:46 | XMS_ITS ---
Author Organization [facility] [address] Address [address] [place] [address] Care Team Providers Care Environmental Projects Advisor Name Role Phone Julieta Mulligan MD Unavailable [phone] Maggi Okeefe MD Primary Care Provider [phone] Jaci Castro MD Unavailable [phone] Active Problems Problem Noted Date Diagnosed Date PVD (peripheral vascular disease) 07/23/2024 Assessment & Plan (07/23/2024 9:39 AM CDT): Impression: Patient denies any symptoms of claudication, ischemic rest pain. Patient has an open ulceration to the plantar surface of the left 1st toe that has been present since September and is slowly healing. Patient is currently being treated by Wound Clinic at [facility]. Patient has palpable distal pulses to bilateral [...] (01/19/2022): Added automatically from request for surgery [id number] Papillary thyroid carcinoma 12/02/2020 Cancer Staging:Pathologic stage from 11/19/2020:No Stage Recommended(pT4a, cN0, cM0, Age at diagnosis: >= 55 years) - Signed by Julieta Mulligan MD on 12/02/2020 Mixed diabetic hyperlipidemi a associated with type 2 diabetes mellitus ([facility]) 06/23/2020 Hypertension associated with diabetes 06/23/2020 Benign hypertension with CKD (chronic kidney disease) stage III 03/12/2020 Chronic heart failure with p reserved ejection fraction ([facility]) 03/12/2020 Encounter for monitoring sotalol therapy 019 Chronic fatigue 06/09/2019 Atrial flutter ([facility]) 05/30/2018 Morbid obesity with BMI of 40.0-44.9, adult 05/22 FRANCISCA on CPAP 06/04/2017 Morbid obesity ([facility]) 12/08/2015 Overview (01/25/2017): Morbid obesity with BMI of 45.0-49.9, adult Chronic anticoagulation 12/08/2015 Overview (01/26/2017): Chronic anticoagulation Hypertensive heart disease with congestive heart failure 12/08/2015 Overview (01/26/2017): Hypertensive heart disease with diastolic heart failure Paroxysmal atrial fibrillation ([facility]) 016 Overview (01/26/2017): Paroxysmal atrial fibrillation Type [...] pacer checks Q6 mo. Diabetic foot ulcer ([facility]) 05/13/2014 Overview (01/25/2017): Ulcer of other part of foot Assessment & Plan (07/23/2024 9:44 AM CDT): Impression: Patient has a left plantar 1st toe ulceration that has been present since September after a fall. Patient is currently being treated by Wound Clinic at [facility]. Patient reports ulceration is healing and is small in size with no concern drainage. Plan: Recommend continue wound care as per Wound Clinic. -recommend x-ray and MRI contrast to the left 1st toe for further evaluation of underlying bone infection. Patient will require an open MRI due to having a pacemaker. -patient to follow-up in 2-3 weeks to review results. 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 Past Plans No past plan information found. Radiation Treatments * Plan Last Treated On Elapsed Days Fractions Treated Prescribed Fraction Dose Prescribed Total Dose Thyroid_1 12/03/2020 0 1 150 cGy 150 cGy Reference Point Last Treated On Elapsed Days Session Dose Total Dose Thyroid_1 12/03/2020 0 150 cGy 150 cGy
--- OUTSIDE RECORDS SUMMARY | 2024-12-03 07:46 | XMS_ITS | Referral Summary ---
Author Organization [facility] [address] [place] [address] [address] [place] [address] Care Team Providers Care Supervisor Steffen House Name Role Phone Julieta Mulligan MD Unavailable [phone] Maggi Okeefe MD Primary Care Provider [phone] Jaci Castro MD Unavailable Encounters Date Type Department Care Team Description 11/19/2024 8:30 AM SHUTTLECOCK FEATHER TRIMMER Ancillary Procedure [facility] [address] [facility] [address] [place] [address] Presence of cardiac pacemaker; Tachycardia-bradycardi a (CMS/HCC) (HCC); Atrial fibrillation and flutter (HCC) from Last 3 Months Allergies Active Allergy Reactions Criticality Noted Date [...] 1 tablet (20 mg total) by mouth masonry teacher before breakfast Active loratadine (CLARITIN) 10 mg tabletIndication s:Allergic Rhinitis Take 1 tablet (10 mg total) by mouth masonry teacher before breakfast Active levothyroxine (SYNTHROID) 175 mcg tabletIndication s:Adjunct to Surgery or Radiotherapy for Thyroid Carcinoma Take 1 tablet (175 mcg total) by mouth daily 11/15/19 21 Active cholecalciferol (VITAMIN D-3) 29705 unit capsule Take 1 capsule (10,000 Units total) by mouth masonry teacher before breakfast Active calcium carbonate (CALCIUM 600 [...] (six) hours as needed for pain Active [employer] G6 Sensor device REPLACE EVERY 10 DAYS [...] (01/19/2022): Added automatically from request for surgery [id number] Papillary thyroid carcinoma 12/02/2020 Cancer Staging:Pathologic stage from 11/19/2020:No Stage Recommended(pT4a, cN0, cM0, Age at diagnosis: >= 55 years) - Signed by Julieta Mulligan MD on 12/02/2020 Mixed diabetic hyperlipidemi a associated with type 2 diabetes mellitus ([facility]) 06/23/2020 Hypertension associated with diabetes 06/23/2020 Benign hypertension with CKD (chronic kidney disease) stage III 03/12/2020 Chronic heart failure with p reserved ejection fraction ([facility]) 03/12/2020 Encounter for monitoring sotalol therapy 019 Chronic fatigue 06/09/2019 Atrial flutter ([facility]) 05/30/2018 Morbid obesity with BMI of 40.0-44.9, adult 05/22 FRANCISCA on CPAP 06/04/2017 Morbid obesity ([facility]) 12/08/2015 Overview (01/25/2017): Morbid obesity with BMI of 45.0-49.9, adult Chronic anticoagulation 12/08/2015 Overview (01/26/2017): Chronic anticoagulation Hypertensive heart disease with congestive heart failure 12/08/2015 Overview (01/26/2017): Hypertensive heart disease with diastolic heart failure Paroxysmal atrial fibrillation ([facility]) 016 Overview (01/26/2017): Paroxysmal atrial fibrillation Type [...] pacer checks Q6 mo. Diabetic foot ulcer ([facility]) 05/13/2014 Overview (01/25/2017): Ulcer of other part [...] in 2-3 weeks to review results. 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[facility]) 05/13/2014 Overview (01/25/2017): Tachy-jourdan syndrome Immunizations Name Administration Dates Next Due Pneumococcal Conjugate PCV 13 01/28/2019 Social History Tobacco Use Types Packs/Day Years [...] on file Legal Sex Male 2:11 AM SHUTTLECOCK FEATHER TRIMMER Gender Identity Not on file Sexual Orientation [...] 05/20/2024 1:58 PM CDT Plan of Treatment Not on file Medical Devices Implanted Type Area Manager Of Information Device Identifier Shelf Expiration Date Model / Serial / Lot [employer] Smartset Medium Viscosity Cement 40gm Bone Gentamicin [id number] - Sna - [id number] Implanted:Qty: 1 on 02/02/2022 by Dominik Reynaga MD at [facility] Bone Cement Left: Knee [employer] 03/21/2023 [id number] / [id number] / [id number] Description:Implant pause pe rformed [employer] Smartset Medium Viscosity Cement 40gm Bone Sterile 3122-040 - Sna - [id number] Implanted:Qty: 1 on 02/02/2022 by Dominik Reynaga MD at [facility] Bone Cement Left: Knee [employer] 02/18/2023 3122-040 / NA / [id number] Description:Implant pause pe rformed [employer] [id number] Attune Cemented Cruciate Retaining Knee Left 9 Component Femoral - Sna - [id number] Implanted:Qty: 1 on 02/02/2022 by Dominik Reynaga MD at [facility] Other - see comments Left: Knee [employer] [id number] 07/21/2031 [id number] / NA / [id number] [employer] [id number] Attune S+ Cement Fix Bearing Knee 9 Baseplate Tibial - Sna - [id number] Implanted:Qty: 1 on 02/02/2022 by Dominik Reynaga MD at [facility] Other - see comments Left: Knee [employer] [id number] 05/21/2031 [id number] / NA / [id number] [employer] [id number] Attune 7mm Cruciate Retaining Fix Bearing Knee 9 Insert Tibial - Sna - [id number] Implanted:Qty: 1 on 02/02/2022 by Dominik Reynaga MD at [facility] Other - see comments Left: Knee [employer] [id number] 05/21/2026 [id number] / NA / [id number] Pacemaker-07/15 Implanted:06/23 by Mike Gardner MD (Quantity not on file) Pacemaker Chest Medtronic SSS, AT/AF ADAPTA [id number] / [id number] / Procedures Procedure Name Priority Date/Time Associated Diagnosis Comments DEVICE CHECK - IN OFFICE Routine 11/19/2024 8:12 AM SHUTTLECOCK FEATHER TRIMMER Presence of cardiac pacemaker Tachycardia-bradycard ia (CMS/HCC) (HCC) Atrial fibrillation and flutter (HCC) LIPID PANEL Routine 03/04/2024 2:20 PM CDT EGFR STAT 02/02/2022 10:16 AM CDT POCT HEMOGLOBIN A1C Routine 01/24/2022 9 :26 AM CDT from Last 3 Months or Most Recently Relevant to Health Maintenance Results * DEVICE CHECK - IN OFFICE (11/19/2024 8:12 AM SHUTTLECOCK FEATHER TRIMMER) Anatomical Region Laterality Modality Other Narrative 11/20/2024 1:07 PM SHUTTLECOCK FEATHER TRIMMER Medtronic Adapta Dual Pacemaker, Dx; SSS, AT/AF. DOI 07/15/[address] Gardner. Pt declines remote monitoring. Office pacer checks Q6 mo. Programmed to VDI mode-Bill Single PM. Supervising MD: Office pacemaker evaluation demonstrated normal device function. Left pectoral incision well healed without signs of infection noted. Battery function-2.69V, 17 months remaining battery life to EMILY. Appropriate lead measurements noted. Presenting rhythm-Aflutter VS-AFTER SCHOOL PROGRAM DIRECTOR. AFTER SCHOOL PROGRAM DIRECTOR-64.5%. AF burden-64.1%. Pt is taking Eliquis and [...] of Race in Diagnosing Kidney Disease, JASN 2020). The CKD-EPI equation should not be used for patients with unstable renal function and has not been validated in children and those over 70. Current interpretive data was last reviewed 2021. Blood 02/02/2022 10:1 6 AM CDT 02/02/2022 10:20 AM CDT Dominik Reynaga MD LAB BLOOD ORDERABLES Suri l Result Performing Organization Address [facility] de Phone Number [facility] [address] [facility] [place] [address] * (ABNORMAL) POCT hemoglobin A1c (01/24/2022 9:26 AM CDT) Hgb A1C, POC 6.2(H) 4.0 - 5.6 % [facility] Est Average Gluc POC 131 mg/dL [facility] Comment: The ADA recommends reporting an estimated Average Glucose (eAG) with all Hemoglobin A1c results using the equation derived from a study of 507 normal and diabetic adults. Minority populations were underrepresented and children were not included. (Diabetes Care 31:3151-2981, 2008). The eAG is not equivalent to a fasting glucose. Blood 01/24/2022 9:26 AM CDT 01/24/2022 9:26 AM CDT Dominik Reynaga MD POINT OF CARE TEST ORDERA BLES Final Result [facility] Department [place] [address] from Last 3 Months or Most Recently Relevant to Health Maintenance Insurance MEDICARE [facility] [place] [address] [facility] MEDICARE SUPPLEMENT Advance Directives For more information, please contact: [phone] * Full Code (Latest Code Status on File) Date Activated Date Inactivated Comments 02/02/2022 11:10 AM 02/03/2022 5:21 PM Care Teams Supervisor Steffen House Relationship Specialty Start Date End Date Maggi Okeefe MD [address] [place], [place] [id number] PCP - General Family Medicine 09/27/21 Julieta Mulligan MD [address], [address] [place] [address] Resident Radiation Oncology 12/11/20 Jaci Castro MD [address] [facility] [facility] [address] Radiation Oncologist Radiation Oncology 12/26/22
--- OUTSIDE RECORDS SUMMARY | 2024-12-03 07:46 | XMS_ITS | Clinical Summary ---
Author Organization [facility] Address [address] [place] [address] Care Team Providers Care Electrician Powerhouse Name Role Phone None, Provider Primary Care Provider Unavaila ble Social History Tobacco Use Types Packs/Day Years Used Date Smoking Tobacco: Never Assessed Sex and Gender Information Value Date Recorded Sex Assigned at Not on file Legal Sex Male 10:52 AM MOLD MACHINE OPERATOR Gender Identity Not on file Sexual Orientation Not on file Last Filed Vital Signs Vital Sign Reading Time Taken Comments Blood Pressure 92/58 11/16/2021 12:05 PM MOLD MACHINE OPERATOR Pulse 65 11/16/2021 11:06 AM MOLD MACHINE OPERATOR Temperature 36.7 C (98 F) 11/16/2021 11:06 AM MOLD MACHINE OPERATOR Respiratory Rate 20 11/16/2021 11:0 6 AM MOLD MACHINE OPERATOR Oxygen Saturation 99% 11/16/2021 12: 15 PM MOLD MACHINE OPERATOR Inhaled Oxygen Concentration - - Weight 138.8 kg (306 lb) 11/16/2021 11: 06 AM MOLD MACHINE OPERATOR has had weight loss Height 182.9 cm (6') 11/16/2021 11:06 AM MOLD MACHINE OPERATOR Body Mass Index 41.5 11/16/2021 11:06 AM MOLD MACHINE OPERATOR Plan of Treatment Health Maintenance Due Date Last Done Comments Colorectal Cancer Screening Colonoscopy (10 Years) 1950 Hepatitis C 01/03/1968 DTaP, Tdap and Td Vaccines ( 1 - Tdap) 1969 Zoster Vaccines (1 of 2) 01/03/2000 RSV Immunization or 60+ Years (1 - Risk 60-74 years 1-dose series) 2010 Annual Medicare Wellness Visit 2015 Pneumococcal Vaccine: 65+ Ye ars (2 of 2 - PPSV23 or PCV20) 01/29/2020 01/28/2019 COVID-19 Vaccine (2023-2 5 season) 2024 Influenza Adult (#1) 2024 Meningococcal B Vaccine Aged Out No l onger eligible based on patient's age to complete this topic Meningococcal Vaccine Aged Out No reagan manolo eligible based on patient's age to complete this topic RSV Immunizations Under 20 Months Aged Out No longer eligible based on patient's age to complete this topic Medical Devices Implanted Type Area Burrer Hand Device Identifier Shelf Expiration Date Model / Serial / Lot Ra Lead-07/15/2014 Implanted:Qty: 1 on 07/15/2014 Lead Implant Right: Atrium [employer] CARDIAC RHYTHM AND HEART FAILURE - DIV M 5076-52 / [id number] / Rv Lead-07/15/2014 Implanted:Qty: 1 on 07/15/2014 Lead Implant Right: Ventricle [employer] CARDIAC RHYTHM AND HEART FAILURE - DIV M 5076-58 / [id number] / Pacemaker-07/15 Implanted:Qty: 1 on 07/15/2014 Pacemaker Chest [employer] CARDIAC RHYTHM AND HEART FAILURE - DIV M [id number] / [id number] / Description:DEVICE IS NOT MR CONDITIONAL Insurance MEDICARE [facility] Care Teams Electrician Powerhouse Relationship Specialty Start Date End Date None, Provider, PCP - General 11/16/21
--- OUTSIDE RECORDS SUMMARY | 2024-12-03 07:48 | XMS_ITS | Clinical Summary ---
Author Organization [facility] Address [address] [place] [address] Care Team Providers Care Slabber Name Role Phone Inocente Nguyen MD Unavailable [phone] Junior Burch MD Unavailable [phone] Shamir Membreno MD Primary Care Provider Source Comments [facility],non-owned Affiliates and Associated Physician Practices is amultiple site organization consisting of ambulatory clinics and hospital sitesin [place], [place], [place] and [place]. This disclosure is being madepursuant to the Care Everywhere program and may not contain all information available regarding this patient. Last updated 18.[facility] Allergies Active Allergy Reactions Criticality Noted Date Comments Phenylephrine Eye Redness 10/07/2020 Medications * Be aware that medications may not be up to date on this document. Alwaysverify current medications with the patient. Medication Sig Dispensed Refills Start Date End Date Status HUMULIN 70/30 KWIKPEN pen Inject 120 Units subcutaneously 2 times daily 120 AM and 60 PM 4 05/03/2018 Active rosuvastatin (CRESTOR) 10 MG tablet Take 1 tablet by mouth once daily 2 04/02/2018 Active ELIQUIS 5 MG tablet Take 1 tablet by mouth 2 times daily 0 03/28/2018 Active bumetanide (BUMEX) 1 MG tablet Take 1 tablet by mouth 2 times daily 2 pills AM 1 pill PM 2 04/02/2018 Active sotalol (BETAPACE) 80 MG tablet Take 1 tablet by mouth 2 times daily 3 06/03/2018 Active diclofenac potassium (CATAFLAM) 50 MG tablet Take 1 tablet by mouth once daily 1 05/02/2018 Active ONETOUCH ULTRA TEST STRIPS test strip Use 1 strip as directed 1 04/27/2018 Active TRUEPLUS PEN NEEDLES 31G X 5 MM needle 1 syringe by Injection route as directed 4 05/13/2018 Active One Touch Delica Lancets Use 1 device as directed 1 04/27/2018 Active potassium chloride (KLOR-CON M) 20 MEQ tablet Take 1 tablet by mouth once daily 3 06/07/2018 Active allopurinol (ZYLOPRIM) 300 MG tablet Take 300 mg by mouth once daily Active lisinopril (PRINIVIL;ZESTRIL ) 5 MG tablet Take 5 mg by mouth once daily 08/01/2020 Active traMADol (ULTRAM) 50 MG tablet Take 50 mg by mouth every 8 hours as needed 08/11/2020 Active TRULICITY 1.5 MG/0.5ML injection Inject 1.5 mL subcutaneously every 7 days 09/03/2020 Active acetaminophen (TYLENOL) 325 MG tablet Take 2 tablets by mouth every 6 hours as needed for Fever or Pain Maximum allowable Acetaminophen amount = 4 Grams (4000 mg) / 24 hours. 0 10/08/2020 Active docusate sodium (COLACE) 100 MG capsule Take 1 capsule by mouth 2 times daily 30 capsule 10/08/2020 Active ibuprofen (MOTRIN) 400 MG tablet Take 1 tablet by mouth every 8 hours as needed for Pain 0 10/08/2020 Active famotidine (PEPCID) 20 MG tablet Take 20 mg by mouth once daily Active loratadine (CLARITIN) 10 MG tablet Take 10 mg by mouth once daily Active dextromethorphan polistirex ER (ROBITUSSIN 12 HOUR COUGH) liquid Take 10 mL by mouth every 12 hours as needed for Cough 148 mL 2 10/20/2020 Active levothyroxine (SYNTHROID) 112 MCG tablet Take 1 tablet by mouth daily before breakfast 30 tablet 10/28/2020 Active Active Problems Problem Noted Date Diagnosed Date Papillary thyroid carcinoma 10/25/2020 Family history of thyroid cancer 09/24/2020 Closed fracture of orbit with routine healing Resolved Problems Problem Noted Date Diagnosed Date Resolved Date Fistula, skin 10/25/2020 11/10/2020 Thyroid nodule 09/24/2020 10/25/2020 Family History Medical History Relation Name Comments Diabetes - Type 2 Brother Diabetes - Type 2 Father Diabetes - Type 2 Maternal Grandfather Diabetes - Type 2 Maternal Grandmother Thyroid Disease Paternal Grandfather Diabetes - Type 2 Sister Relation Name Status Comments Brother Father Maternal Grandfather Maternal Grandmother Paternal Grandfather Sister Social History Tobacco Use Types Packs/Day [...] Comments Blood Pressure 114/76 11/10/2020 12:57 PM ENTERPRISE ACCOUNT MANAGER Pulse 65 11/10/2020 12:57 PM ENTERPRISE ACCOUNT MANAGER Temperature 36.2 C (97.1 F) 10/20/2020 3:23 PM ENTERPRISE ACCOUNT MANAGER Respiratory Rate 20 10/08/2020 8:28 AM ENTERPRISE ACCOUNT MANAGER Oxygen Saturation 95% 10/08/2020 8:28 AM ENTERPRISE ACCOUNT MANAGER Inhaled Oxygen Concentration - - Weight 148.3 kg (327 lb) 11/10/2020 12:57 PM ENTERPRISE ACCOUNT MANAGER Height 182.9 cm (6') 11/10/2020 12:57 PM ENTERPRISE ACCOUNT MANAGER Body Mass Index 44.35 11/10/2020 12:57 PM ENTERPRISE ACCOUNT MANAGER Plan of Treatment Health Maintenance Due Date Last Done Comments COLOGUARD (AGES 45-75) - COLON CA SCREENING 1950 COLON MONITORING 1950 COLONOSCOPY - COLON CA SCREENING 1950 CT COLONOGRAPHY - COLON CA SCREENING 1950 Colorectal Cancer Screening 1950 FIT - COLON CA SCREENING 1950 FLEX SIG - COLON CA SCREENING 1950 MEDICARE AWV 12 MONTHS 1950 HEPATITIS C SCREENING 12/29/1967 DTAP/TDAP/TD VACCINES (1 - Tdap) 1969 PNEUMOCOCCAL VACCINE 50+ (1 of 1 - PCV) 01/03/2000 ZOSTER VACCINE (1 of 2) 01/03/2000 Respiratory Syncytial Virus (RSV) Vaccine Pt: or over 60 yrs (1 - Risk 60-74 years 1-dose series) 2010 SCREENING FOR DIABETES 10/08/2023 0, 10/08/2020, 10/07/2020, Additional history exists COVID-19 VACCINE (2023- season) 2024 INFLUENZA VACCINE (#1) 2024 DEPRESSION SCREENING 10/22/2024 HEPATITIS B VACCINE Aged Out No longe r eligible based on patient's age to complete this topic HIB VACCINE Aged Out No longer eligi ble based on patient's age to complete this topic HPV VACCINE Aged Out No longer eligi ble based on patient's age to complete this topic MENINGOCOCCAL (Group B) VACCINE Aged Out No longer eligible based on patient's age to complete this topic MENINGOCOCCAL VACCINE Aged Out No reagan manolo eligible based on patient's age to complete this topic Procedures Procedure Name Priority Date/Time Associated Diagnosis Comments BASIC METABOLIC PANEL (CALCIUM TOTAL) STAT 10/08/2020 9:17 AM ENTERPRISE ACCOUNT MANAGER S/P thyroidectomy from Last 3 Months or Most Recently Relevant to Health Maintenance Results * (ABNORMAL) BASIC METABOLIC PANEL (CALCIUM TOTAL) (10/08/2020 9:17 AM ENTERPRISE ACCOUNT MANAGER) BUN 23 7 - 26 mg/dL 10/08/2020 9:52 AM [facility] Creatinine 1.3(H) 0.6 - 1.2 mg/dL 10/08/2020 9:52 AM [facility] Sodium 138 136 - 145 mmol/L 10/08/2020 9:52 AM [facility] Potassium 4.5 3.5 - 4.5 mmol/L 10/08/2020 9:52 AM [facility] Chloride 97(L) 98 - 107 mmol/L 10/08/2020 9:52 AM [facility] CO2 26 22 - 29 mmol/L 10/08/2020 9:52 AM [facility] Glucose 247(H) 70 - 115 mg/dL 10/08/2020 9:52 AM [facility] Calcium 8.3(L) 8.4 - 10.2 mg/dL 10/08/2020 9:52 AM [facility] Anion Gap 20(H) 8 - 18 10/08/2020 9:52 AM [facility] BUN/Creatinine Ratio 18 7 - 23 10/08/2020 9:52 AM [facility] Osmolality Calculated 298 270 - 300 mOsm/kg 10/08/2020 9:52 AM ENTERPRISE ACCOUNT MANAGER [facility] eGFR 55(L) >60 mL/min/1.7 3 m2 10/08/2020 9:52 AM [facility] Blood BLOOD SPECIMEN / Unknown Lab Venipuncture / Unknown 10/08/2020 9:17 AM ENTERPRISE ACCOUNT MANAGER 10/08/2020 9:23 AM ENTERPRISE ACCOUNT MANAGER Adam Iniguez MD LAB - CHEMISTRY MOOSE WALLER [facility] [address] [place] [address], [facility] [phone] from Last 3 Months or Most Recently Relevant to Health Maintenance Advance Directives * Full Code (Latest Code Status on File) Date Activated Date Inactivated Comments 10/07/2020 10:34 PM 10/08/2020 1:28 PM Care Teams Slabber Relationship Specialty Start Date End Date Shamir Membreno MD [address] [place] [address] PCP - General 12/20/20 Inocente Nguyen MD [address] [facility] [address] [place] [address] Ophthalmology 06/27/18 Junior Burch MD [address] [address] [address] [place] [address] Orthopedic Surgery 06/27/18
--- OUTSIDE RECORDS SUMMARY | 2024-12-03 07:48 | XMS_ITS | Referral Summary ---
Author Organization [facility] Address [address] [place] [address] Care Team Providers Care Crop Roller Name Role Phone Inocente Nguyen MD Unavailable [phone] Junior Burch MD Unavailable [phone] Shamir Membreno MD Primary Care Provider Source Comments [facility],non-owned Affiliates and Associated Physician Practices is amultiple site organization consisting of ambulatory clinics and hospital sitesin [place], [place], [place] and [place]. This disclosure is being madepursuant to the Care Everywhere program and may not contain all information available regarding this patient. Last updated 18.[facility] Allergies Active Allergy Reactions Criticality Noted Date [...] Comments Blood Pressure 114/76 11/10/2020 12:57 PM ASSEM[employer]ER FILTERS Pulse 65 11/10/2020 12:57 PM [employer] Temperature 36.2 C (97.1 F) 10/20/2020 3:23 PM [employer] Respiratory Rate 20 10/08/2020 8:28 AM ASSEM[employer] Oxygen Saturation 95% 10/08/2020 8:28 AM [employer] Inhaled Oxygen Concentration - - Weight 148.3 kg (327 lb) 11/10/2020 12:57 PM [employer] Height 182.9 cm (6') 11/10/2020 12:57 PM [employer] Body Mass Index 44.35 11/10/2020 12:57 PM [employer] Plan of Treatment Not on file Procedures Procedure Name Priority Date/Time Associated Diagnosis Comments BASIC METABOLIC PANEL (CALCIUM TOTAL) STAT 10/08/2020 9:17 AM ASSEM[employer] S/P thyroidectomy from Last 3 Months or Most Recently Relevant to Health Maintenance Results * (ABNORMAL) BASIC METABOLIC PANEL (CALCIUM TOTAL) (10/08/2020 9:17 AM ASSEM[employer] FILTERS) BUN 23 7 - 26 mg/dL 10/08/2020 9:52 AM [facility] Creatinine 1.3(H) 0.6 - 1.2 mg/dL 10/08/2020 9:52 AM [facility] Sodium 138 136 - 145 mmol/L 10/08/2020 9:52 AM [facility] Potassium 4.5 3.5 - 4.5 mmol/L 10/08/2020 9:52 AM [facility] Chloride 97(L) 98 - 107 mmol/L 10/08/2020 9:52 AM [facility] CO2 26 22 - 29 mmol/L 10/08/2020 9:52 AM [facility] Glucose 247(H) 70 - 115 mg/dL 10/08/2020 9:[address] [facility] Calcium 8.3(L) 8.4 - 10.2 mg/dL 10/08/2020 9:52 AM [facility] Anion Gap 20(H) 8 - 18 10/08/2020 9:52 AM [facility] BUN/Creatinine Ratio 18 7 - 23 10/08/2020 9:52 AM [facility] Osmolality Calculated 298 270 - 300 mOsm/kg 10/08/2020 9:52 AM [facility] eGFR 55(L) >60 mL/min/1.7 3 m2 10/08/2020 9:52 AM [facility] Blood BLOOD SPECIMEN / Unknown Lab Venipuncture / Unknown 10/08/2020 9:17 AM [employer] 10/08/2020 9:23 AM [facility] Adam Iniguez MD LAB - CHEMISTRY MOOSE WALLER Performing Organization Address City/State/[facility] Co de Phone Number [facility] [address] [place] [address] [phone] from Last 3 Months or Most Recently Relevant to Health Maintenance Advance Directives * Full Code (Latest Code Status on File) Date Activated Date Inactivated Comments 10/07/2020 10:34 PM 10/08/2020 1:28 PM Care Teams Crop Roller Relationship Specialty Start Date End Date Shamir Membreno MD [address] [place] [address] PCP - General 12/20/20 Inocente Nguyen MD [address] [facility] [address] [facility] [address] [place] [address] Ophthalmology 06/27/18 Junior Burch MD [address] [place] [address] Orthopedic Surgery 06/27/18
--- OUTSIDE RECORDS SUMMARY | 2024-12-03 07:49 | XMS_ITS | Clinical Summary ---
Author Organization [facility] Address [address], [address] [address] Phone Care Team Providers Care Auto Collision Repair Instructor Name Role Phone Shamir Membreno MD Primary Care Provider Social History Tobacco Use Types Packs/Day Years Used Date Smoking Tobacco: Never Assessed Sex and Gender Information Value Date Recorded Sex Assigned at Not on file Legal Sex Male 12:40 PM CDT Gender Identity Not on file Sexual Orientation Not on file Plan of Treatment Health Maintenance Due Date Last Done Comments Hepatitis C Virus (HCV) Screening 1950 TdaP Immunization 1950 Cologuard 01/03/2000 Immunochemical Fecal Occult Blood 01/03/2000 Pneumococcal Immunization (5 0+ years) (1 of 1 - PCV) 01/03/2000 Zoster Immunization (1 of 2) 01/03/2000 Colonoscopy 07/22/2023 07/22/2020, 05/22/2019 Colorectal Cancer Screening 07/22/2023 Influenza Immunization (#1) 2024 SARS-COV-2 Immunization ( - season) 2024 Respiratory Syncytial Virus (RSV) Immunization (Adult) (1 - 1-dose 75+ series) 2025 07/22/2020, 05/22/2019 Hepatitis B Immunization Aged Out No longer eligible based on patient's age to complete this topic Meningococcal Immunization (ACWY) Aged Out No longer eligible b ased on patient's age to complete this topic Rotavirus Immunization Aged Out No lo nger eligible based on patient's age to complete this topic Procedures Procedure Name Priority Date/Time Associated Diagnosis Comments HM COLONOSCOPY Routine 07/22/2020 from Last 3 Months or Most Recently Relevant to Health Maintenance Results * COLONOSCOPY (07/22/2020) Mike Perez DO PROCEDURE/MINOR SURGICAL ORDERA BLES Final Result from Last 3 Months or Most Recently Relevant to Health Maintenance Insurance MEDICARE [facility] Care Teams Auto Collision Repair Instructor Relationship Specialty Start Date End Date Shamir Membreno MD PCP - General Family Medicine 01/22/19
--- NOTE | 2024-12-03 07:57 | ECG_ITS ---
Test Date: 2024-12-03 08:13:33 Measurements Intervals [place] Rate: 67 P: 0 WY: 0 QRS: -82 QRSD: 154 T: -16 QT: 457 QTc: 484 Interpretive Statements ELECTRONIC VENTRICULAR PACEMAKER WITH INHIBITION UNDERLYING ATRIAL FIBRILLATION LEFT AXIS DEVIATION RIGHT BUNDLE BRANCH BLOCK ST-T WAVE ABNORMALITY IN ANTEROLATERAL LEADS- CONSIDER ISCHEMIA BASELINE ARTIFACT- I, II, III, AVR, AVL, AVF, V1-V6 ABNORMAL ECG No previous ECG available for comparison Electronically Signed On 12-03-2024 08:29:43 INSTALLER TECHNICIAN by Shaan Lakhani D.O.
[2024-12-03 08:50] LABS: Anion Gap 9 mmol/L (4-12); Blood Urea Nitrogen 24 mg/dL (9-20); Calcium 9.1 mg/dL (8.4-10.2); Carbon Dioxide 31 mmol/L (22-30); Chloride 97 mmol/L (98-107); Estimated Glomerular Filt Rate 52; Glucose 109 mg/dL (65-110); Potassium 3.7 mmol/L (3.4-5.0); Sodium 137 mmol/L (137-145)
[2024-12-03 08:54] LABS: INR 1.2; Prothrombin Time 16.1 Seconds (11.1-14.7)
[2024-12-03 08:55] LABS: Partial Thromboplastin Time 31.8 Seconds (22.3-36.8)
== END 2024-12-03 07:34 | disposition home or self-care (01) ==
LOC: ANHSURGERY 07:41
PROVIDERS: Anesthesiology; PCP Family Medicine; Visit Provider Orthopaedic Surgery
DX: E11.9 Type 2 diabetes mellitus without complications (principal); I12.9 Hypertensive chronic kidney disease with stage 1 through stage 4 chronic kidney disease, or unspecified chronic kidney disease; N18.9 Chronic kidney disease, unspecified; Z01.818 Encounter for other preprocedural examination
CPT/HCPCS: 36415; 80048; 85610; 85730; 93005

== ENCOUNTER 2024-12-11 00:44 | Day surgery (SDC) | payer MEDICARE, SELFPAY ==
--- NOTE | 2024-11-28 13:58 | PC.NURSE ---
Report to the Outpatient Waiting Room, entrance under the green pavilion located off [facility], at time __6 AM on date _12/11/24 . Planned Procedure Time: __7:30 AM .? Time changes happen often and if your time is changed the preop area will call you the afternoon before. - You and your visitor will be asked to self-screen and do not enter if you have any COVID symptoms. Please call surgeon if you need to reschedule. - A mask is optional within the hospital at this time. Patients may have clear liquids (water, carbonated beverages, clear teas, apple juice) until 3 hours prior to surgery( 4:30 AM) with a maximum of 20 ounces. - No food from midnight until time of surgery and no smoking, or chewing tobacco (or any form of nicotine). No chewing gum, candy or mints. - Take only the following medications with a SIP of water on the morning of surgery: ____SOTALOL,LEVOTHYROXINE DO NOT STOP ANY OF YOUR OTHER PRESCRIPTION MEDICATIONS PRIOR TO SURGERY EXCEPT THE FOLLOWING Hold all vitamins and supplements for 3 days per anesthesiologist. Medications to discontinue per physician ___ELIQUIS PER DR LIGHT Please no make-up, nail greek, hairspray, perfume, deodorant, or body powder the day of surgery.? No jewelry (including any body piercings) or valuables the day of surgery, leave them at home.? Please take a shower or bath the night before, or the morning of, surgery with an antibacterial soap.? Wear comfortable, loose fitting clothing.? Children are encouraged to wear pajamas. - Jewelry must be removed prior to entering the operating room.? Rings and piercings that are not removed may be cut off. - The hospital will not accept responsibility for valuables.? - Please leave all valuables, including medications, at home the day of surgery. If you are going home after surgery, a licensed [facility] driver must drive you home.? - NO public transportation without another adult if you receive anesthesia. - We recommend that an adult stay with you for 24 hours following discharge. - We also recommend that you do not drive, make important decision, drink alcoholic beverages, or take any drugs that were not prescribed by your health care provider for at least 24 hours after your discharge time. Follow any additional instructions given to you from your surgeon. Telephone instructions given to __PATIENT and asked if any additional questions and then verbalized understanding. Patient advised to call surgeon office or pre surgery nurse liaison [phone] if any additional questions.
[2024-11-28 14:29] VITALS: BMI 38.0
--- NOTE | ~2024-12-11 | XR_ITS ---
EXAMINATION: XR surgery orthopedic DATE: 12/11/2024 08:16 INDICATION: Left first interphalangeal arthrodesis TECHNIQUE: 4 fluoroscopic images of the left great toe were obtained during procedure performed by Dr Tiago Burch. Radiologist was not present for the imaging or procedure. The amount of fluoroscopy time u sed during this procedure was 0.5 minutes. Total DAP was 2.598 cGycm^2 COMPARISON: None. FINDINGS: Postoperative change of the first interphalangeal arthrodesis which is fixed with variable pitch comp ression screw and dorsal medial staple. Alignment is essentially anatomic. No fractures. Juxta-articu lar erosions at the medial and lateral sides of the base of the first proximal phalanx at the medial side of the head of the first metatarsal most consistent with gout with only mild osteoarthritis at t he metatarsophalangeal joint space. IMPRESSION: 1. Essentially anatomic alignment post internally fixed first interphalangeal arthrodesis. 2. Erosions most consistent with gout. Reviewed, dictated and finalized at location A. ONAL OPERATIONS MANAGER IMPRESSION: 1. Essentially anatomic alignment post internally fixed first interphalangeal a rthrodesis. 2. Erosions most consistent with gout.
--- OUTSIDE RECORDS SUMMARY | 2024-12-11 00:47 | XMS_ITS | Referral Summary ---
Author Organization [facility] Address [address] [place] [address] Care Team Providers Care Credit Review Officer Name Role Phone Inocente Nguyen MD Unavailable [phone] Junior Burch MD Unavailable [phone] Shamir Membreno MD Primary Care Provider Source Comments [facility],non-owned Affiliates and Associated Physician Practices is amultiple site organization consisting of ambulatory clinics and hospital sitesin [place], [place], [place] and [place]. This disclosure is being madepursuant to the Care Everywhere program and may not contain all information available regarding this patient. Last updated 18.[facility] Allergies Active Allergy Reactions Criticality Noted Date [...] Comments Blood Pressure 114/76 11/10/2020 12:57 PM AIRCRAFT CLEANER Pulse 65 11/10/2020 12:57 PM AIRCRAFT CLEAN[employer] Temperature 36.2 C (97.1 F) 10/20/2020 3:23 PM AIRCRAFT CLE[employer] Respiratory Rate 20 10/08/2020 8:28 AM AIRCRAFT CLEAN[employer] Oxygen Saturation 95% 10/08/2020 8:28 AM AIRCRAFT CLE[employer] Inhaled Oxygen Concentration - - Weight 148.3 kg (327 lb) 11/10/2020 12:57 PM AIRCRAFT CLEANER Height 182.9 cm (6') 11/10/2020 12:57 PM AIRCRAFT CLE[employer] Body Mass Index 44.35 11/10/2020 12:57 PM AIRCRAFT CLEANER Plan of Treatment Not on file Procedures Procedure Name Priority Date/Time Associated Diagnosis Comments BASIC METABOLIC PANEL (CALCIUM TOTAL) STAT 10/08/2020 9:17 AM AIRCRAFT CLE[employer] S/P thyroidectomy from Last 3 Months or Most Recently Relevant to Health Maintenance Results * (ABNORMAL) BASIC METABOLIC PANEL (CALCIUM TOTAL) (10/08/2020 9:17 AM AIRCRAFT CLEANER) BUN 23 7 - 26 mg/dL 10/08/2020 9:52 AM [facility] Creatinine 1.3(H) 0.6 - 1.2 mg/dL 10/08/2020 9:52 AM [facility] Sodium 138 136 - 145 mmol/L 10/08/2020 9:52 AM [facility] Potassium 4.5 3.5 - 4.5 mmol/L 10/08/2020 9:52 AM [facility] Chloride 97(L) 98 - 107 mmol/L 10/08/2020 9:52 AM [facility] CO2 26 22 - 29 mmol/L 10/08/2020 9:52 AM [facility] Glucose 247(H) 70 - 115 mg/dL 10/08/2020 9:52 AM [facility] Calcium 8.3(L) 8.4 - 10.2 mg/dL 10/08/2020 9:52 AM [facility] Anion Gap 20(H) 8 - 18 10/08/2020 9:52 AM [facility] BUN/Creatinine Ratio 18 7 - 23 10/08/2020 9:52 AM [facility] Osmolality Calculated 298 270 - 300 mOsm/kg 10/08/2020 9:52 AM [facility] eGFR 55(L) >60 mL/min/1.7 3 m2 10/08/2020 9:52 AM [facility] Blood BLOOD SPECIMEN / Unknown Lab Venipuncture / Unknown 10/08/2020 9:17 AM AIRCRAFT CLEANER 10/08/2020 9:23 AM [facility] Adam Iniguez MD LAB - CHEMISTRY MOOSE WALLER Performing Organization Address City/State/[facility] Co de Phone Number [facility] [address] [place] [address] [phone] from Last 3 Months or Most Recently Relevant to Health Maintenance Advance Directives * Full Code (Latest Code Status on File) Date Activated Date Inactivated Comments 10/07/2020 10:34 PM 10/08/2020 1:28 PM Care Teams Credit Review Officer Relationship Specialty Start Date End Date Shamir Membreno MD [address] [place] [address] PCP - General 12/20/20 Inocente Nguyen MD [address] [facility] [address] [place] [address] Ophthalmology 06/27/18 Junior Burch MD [address] [facility] [address] [place] [address] Orthopedic Surgery 06/27/18
--- OUTSIDE RECORDS SUMMARY | 2024-12-11 00:47 | XMS_ITS | Patient Health Summary ---
Author Organization [facility] Address [address] [place] [address] Care Team Providers Care [employer] Name Role Phone Inocente Nguyen MD Unavailable [phone] Junior Burch MD Unavailable [phone] Shamir Membreno MD Primary Care Provider Note from [facility],non-owned Affiliates and Associated Physician Practices is amultiple site organization consisting of ambulatory clinics and hospital sitesin [place], [place], [place] and [place]. This disclosure is being madepursuant to the Care Everywhere program and may not contain all information available regarding this patient. Last updated 18.[facility] Allergies * Phenylephrine(Eye Redness) * Eq Nasal [...] Comments Blood Pressure 114/76 11/10/2020 12:57 PM ENDOCRINOLOGY PHYSICIAN Pulse 65 11/10/2020 12:57 PM ENDOCRINOLOGY PHYSICIAN Temperature 36.2 C (97.1 F) 10/20/2020 3:23 PM ENDOCRINOLOGY PHYSICIAN Respiratory Rate 20 10/08/2020 8:28 AM ENDOCRINOLOGY PHYSICIAN Oxygen Saturation 95% 10/08/2020 8:28 AM ENDOCRINOLOGY PHYSICIAN Inhaled Oxygen Concentration - - Weight 148.3 kg (327 lb) 11/10/2020 12:57 PM ENDOCRINOLOGY PHYSICIAN Height 182.9 cm (6') 11/10/2020 12:57 PM ENDOCRINOLOGY PHYSICIAN Body Mass Index 44.35 11/10/2020 12:57 PM ENDOCRINOLOGY PHYSICIAN Procedures * CARDIAC EKG ORDER(Performed 10/11/2020) * [...] * CARDIAC EKG ORDER (10/11/2020 5:21 PM ENDOCRINOLOGY PHYSICIAN) Narrative 10/11/2020 5:21 PM ENDOCRINOLOGY PHYSICIAN Ordered by an unspecified provider. Scanned Document CARDIAC SERVICES ORD ERABLES * (ABNORMAL) CALCIUM IONIZED WHOLE BLOOD (10/08/2020 9:17 AM ENDOCRINOLOGY PHYSICIAN) Ionized Calcium Whole Blood 1.08 mmol/L 10/08/2020 9:26 AM ENDOCRINOLOGY PHYSICIAN [facility] Adjusted Ionized Calcium 1.10(L) 1.19 - 1.34 mmol/L 10/08/2020 9:26 AM ENDOCRINOLOGY PHYSICIAN [facility] pH Whole Blood 7.43 7.35 - 7.45 10/08/2020 9:26 AM ENDOCRINOLOGY PHYSICIAN [facility] Blood WHOLE BLOOD SPECIMEN / Unknown Lab Venipuncture / Unknown 10/08/2020 9:17 AM ENDOCRINOLOGY PHYSICIAN 10/08/2020 9:23 AM ENDOCRINOLOGY PHYSICIAN Adam Iniguez MD LAB - CHEMISTRY MOOSE WALLER [facility] [address] [address], [facility] [phone] * (ABNORMAL) PTH INTACT W/O CALCIUM (10/08/2020 9:17 AM ENDOCRINOLOGY PHYSICIAN) PTH Intact 87.2(H) 8.0 - 77.0 pg/mL 10/08/2020 9:52 AM [facility] Blood BLOOD SPECIMEN / Unknown Lab Venipuncture / Unknown 10/08/2020 9:17 AM ENDOCRINOLOGY PHYSICIAN 10/08/2020 9:23 AM ENDOCRINOLOGY PHYSICIAN Adam Iniguez MD LAB - CHEMISTRY MOOSE WALLER [facility] Organization Address City/State/ZIP Co de Phone Number [facility] [address] [place] [address], [facility] [phone] * (ABNORMAL) CBC W/O DIFFERENTIAL (10/08/2020 9:17 AM ENDOCRINOLOGY PHYSICIAN) Only the most recent of2 resultswithin the time period is included. WBC 12.9(H) 3.5 - 10.5 10 3/uL 10/08/2020 9:29 AM [facility] RBC 4.48 4.30 - 5.70 10 6/uL 10/08/2020 9:29 AM [facility] Hemoglobin 13.3(L) 13.5 - 17.5 g/dL 10/08/2020 9:29 AM [facility] Hematocrit 41.3 39.0 - 50.0 % 10/08/2020 9:29 AM [facility] MCV 92.2 81.0 - 97.0 fL 10/08/2020 9:29 AM [facility] MCH 29.7 28.0 - 34.0 pg 10/08/2020 9:29 AM [facility] MCHC 32.2 32.0 - 36.0 g/dL 10/08/2020 9:29 AM [facility] Platelet Count 139(L) 150 - 400 10 3/uL 10/08/2020 9:29 AM [facility] RDW-SD 50.7(H) 36.0 - 50.0 fL 10/08/2020 9:29 AM [facility] RDW-CV 15.0(H) 11.2 - 14.8 % 10/08/2020 9:29 AM [facility] MPV 11.7 9.3 - 12.8 fL 10/08/2020 9:29 AM [facility] nRBC Absolute 0.00 0 10 3/uL 10/08/2020 9:29 AM [facility] nRBC Auto 0.0 0 /100 WBC 10/08/2020 9:29 AM [facility] Blood BLOOD SPECIMEN / Unknown Lab Venipuncture / Unknown 10/08/2020 9:17 AM ENDOCRINOLOGY PHYSICIAN 10/08/2020 9:23 AM ENDOCRINOLOGY PHYSICIAN Adam Iniguez MD LAB - HEMATOLOGY ORD ERABLES Performing Organization Address [facility]/ZIP Co de Phone Number [facility] [address] [place] [address], [facility] [phone] * (ABNORMAL) BASIC METABOLIC PANEL (CALCIUM TOTAL) (10/08/2020 9:17 AM ENDOCRINOLOGY PHYSICIAN) Only the most recent of2 resultswithin the time period is included. BUN 23 7 - 26 mg/dL 10/08/2020 9:52 AM [facility] Creatinine 1.3(H) 0.6 - 1.2 mg/dL 10/08/2020 9:52 AM [facility] Sodium 138 136 - 145 mmol/L 10/08/2020 9:52 AM [facility] Potassium 4.5 3.5 - 4.5 mmol/L 10/08/2020 9:52 AM [facility] Chloride 97(L) 98 - 107 mmol/L 10/08/2020 9:52 AM [facility] CO2 26 22 - 29 mmol/L 10/08/2020 9:52 AM [facility] Glucose 247(H) 70 - 115 mg/dL 10/08/2020 [...] Lab Venipuncture / Unknown 10/08/2020 9:17 AM ENDOCRINOLOGY PHYSICIAN 10/08/2020 9:23 AM ENDOCRINOLOGY PHYSICIAN Adam Iniguez MD LAB - CHEMISTRY MOOSE WALLER Performing Organization Address City/[facility]/ZIP Co de Phone Number [address] [address], [facility] [phone] * (ABNORMAL) GLUCOSE - POINT OF CARE (10/08/2020 8:26 AM ENDOCRINOLOGY PHYSICIAN) Only the most recent of4 resultswithin the time period is included. Glucose WB/POC 229(H) 70 - 115 mg/dL 10/08/2020 8:31 AM ENDOCRINOLOGY PHYSICIAN [facility] Specimen Type Arterial/C apillary 10/08/2020 8:31 AM ENDOCRINOLOGY PHYSICIAN [facility] Blood BLOOD SPECIMEN / Unknown 10/08/2020 8:26 AM ENDOCRINOLOGY PHYSICIAN 10/08/2020 8:31 AM ENDOCRINOLOGY PHYSICIAN Adam Iniguez MD LAB - POINT OF CARE ORDERABLES Performing Organization Address [facility] [place]/ZIP Co de Phone Number [address] [address], [facility] [phone] * PATHOLOGY TISSUE (10/07/2020 6:17 PM ENDOCRINOLOGY PHYSICIAN) Case Report Surgical Pathology Report Case: [id number] Authorizing Provider: Adam Iniguez MD Collected: 10/07/2020 06:17 PM Ordering Location: [facility] Received: 10/08/2020 05:09 AM Pathologist: Da Davis MD Specimen: Thyroid, TOTAL THYROID- RIGHT SUPERIOR 10/20/2020 3:02 PM ENDOCRINOLOGY PHYSICIAN [facility] Final Diagnosis Thyroid, total thyroidectomy: - 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 The architecture has both follicular and papillary features. The adenomatous hyperplasia on block A6 is positive for thyroglobulin, while negative for synaptophysin and chromogranin. Morphology and immunophenotype support the above diagnosis. 10/20/2020 3:02 PM [facility] Clinical History 10/20/2020 3:02 PM [facility] Gross Description The requisition [...] right superior lobe. The capsule is purple vogel with brown-vogel fibrous adhesions. The anterior surface [...] A 2.1 x 1.1 x 0.8 cm yris-yxoq-juk node your is found in isthmus abutting both anterior and posterior margin. A 0.3 x 0.2 x 0.2 cm pale vogel hard nodule/calculus is present in left lower thyroid lobe abutting posterior surface. The rest of the left lobe parenchyma is purple vogel and cystic and hemorrhagic. Cut surfaces off pyramidal lobe show kaohl-coiv-qth soft cut surfaces with no distinct lesion. The mass lesion doesn't appear to have well defined capsule. Oil Paint Shader sections are submitted as follows: A1-A2 small [...] of pyramidal lobe. IY 10/20/2020 3:02 PM [facility] Disclaimer The performance characteristics of all immunohistochemical and indirect immunofluorescence stains (if any) cited in this report were determined by the Histopathology Laboratory of [facility]. Some of these tests were developed [...] the attending (teaching) pathologist. 10/20/2020 3:02 PM [facility] Synoptic Report THYROID GLAND [...] Lymph Nodes (pN): pNX 10/20/2020 3:02 PM [facility] Embedded Images 10/20/2020 3:02 PM [facility] Biopsy, Excision SPECIMEN FROM THYROID OBTAINED BY THYROIDECTOMY / Unknown 10/07/2020 6:17 PM ENDOCRINOLOGY PHYSICIAN 10/08/2020 5:09 AM ENDOCRINOLOGY PHYSICIAN Comment:Pre-op diagnosis: THYROID NODULE, HISTORY THYROID CANCER Adam Iniguez MD LAB - PATHOLOGY/CYTO LOGY ORDERABLES [facility] [address] [place], [place] [address] [place] [address] * (ABNORMAL) BLOOD GASES ART COMPLETE [facility] OR (10/07/2020 3:54 PM [facility]) pH Arterial 7.40 7.35 - 7.45 10/07/2020 4:01 PM [facility] pCO2 Arterial 49(H) 35 - 45 mmHg 10/07/2020 4:01 PM [facility] pO2 Arterial 85 71 - 95 mmHg 10/07/2020 4:01 PM [facility] HCO3 Arterial 30.0(H) 22.0 - 26.0 mmol/L 10/07/2020 4:01 PM [facility] TCO2 Arterial 31.5(H) 25.0 - 29.0 mmol/L 10/07/2020 4:01 PM [facility] Base Excess Arterial 4.3(H) -2.0 - 2.0 mmol/L 10/07/2020 4:01 PM [facility] Hemoglobin Arterial 13.2(L) 13.5 - 17.5 g/dL 10/07/2020 4:01 PM [facility] Oxyhemoglobin Arterial 95.8 95.0 - 100.0 % 10/07/2020 4:01 PM [facility] Carboxyhemoglobin 0.4 0.0 - 3.0 % 10/07/2020 4:01 PM [facility] Methemoglobin 0.3 0.0 - 2.0 % 10/07/2020 4:01 PM [facility] FI O2 Arterial 28.0 % 10/07/2020 4:01 PM [facility] Ionized Calcium Whole Blood 1.14 mmol/L 10/07/2020 4:01 PM [facility] Adjusted Ionized Calcium 1.14(L) 1.19 - 1.34 mmol/L 10/07/2020 4:01 PM [facility] Sodium Whole Blood 133(L) 135 - 145 mmol/L 10/07/2020 4:01 PM [facility] Potassium Whole Blood 4.1 3.5 - 5.5 mmol/L 10/07/2020 4:01 PM [facility] Chloride Whole Blood 100(L) 101 - 111 mmol/L 10/07/2020 4:01 PM [facility] Glucose Whole Blood 157(H) 70 - 110 mg/dL 10/07/2020 4:01 PM ENDOCRINOLOGY PHYSICIAN [facility] Lactic Acid Whole Blood 2.3 0.5 - 3.4 mmol/L 10/07/2020 4:01 PM ENDOCRINOLOGY PHYSICIAN [facility] Blood ARTERIAL BLOOD SPECIMEN / Unknown Venipuncture / Unknown 10/07/2020 3:54 PM ENDOCRINOLOGY PHYSICIAN 10/07/2020 3:57 PM ENDOCRINOLOGY PHYSICIAN Marlen Alex MD LAB - BLOOD GASES ORDERABLES [facility] [address] [place] [address], [facility] [phone] * Arterial Line Placement (10/07/2020 3:38 PM ENDOCRINOLOGY PHYSICIAN) Narrative Mary Ellen Hou MD - 10/07/2020 3:38 PM ENDOCRINOLOGY PHYSICIAN Mary Ellen Hou MD 10/07/2020 7:36 PM Arterial Line Placement Procedure Note Procedure: Arterial Line (53780). Staff Section Anesthesia Provider: Oseas Shaw DO, Performed the procedure Marlen Alex MD GENERAL ANESTHESIA ORDERABLES * ETT LINE PERFORMABLE (10/07/2020 3:16 PM ENDOCRINOLOGY PHYSICIAN) Narrative Mary Ellen Hou MD - 10/07/2020 3:16 PM ENDOCRINOLOGY PHYSICIAN Mary Ellen Hou MD 10/07/2020 7:36 PM Endotracheal Tube Placement: Patient Location: OR. Intubation Event Date/Time: 10/07/2020 3:16 PM Procedure: intubation (23041). Procedure Section: Sedation: under general anesthesia. Indications [...] SARS-COV-2 (COVID-19) IN HOUSE (10/04/2020 11:52 AM ENDOCRINOLOGY PHYSICIAN) COVID-19 PCR Not detected Not detected 10/04/2020 11:20 PM ENDOCRINOLOGY PHYSICIAN [facility] Microbiology SPECIMEN FROM NASOPHARYNGEAL STRUCTURE / Unknown Collection / Unknown 10/04/2020 11:52 AM ENDOCRINOLOGY PHYSICIAN 10/04/2020 11:52 AM ENDOCRINOLOGY PHYSICIAN Narrative [facility] - 10/04/2020 11:20 PM ENDOCRINOLOGY PHYSICIAN This nucleic acid amplification assay performance was validated by [facility]. This test has been authorized [...] Iniguez MD LAB - MICROBIOLOGY O RDERABLES [facility] [address] [place] [address], [facility] [phone] * TYPE + SCREEN PANEL (09/29/2020 1:28 PM ENDOCRINOLOGY PHYSICIAN) Antibody Screen NEG 0 2:45 PM ENDOCRINOLOGY PHYSICIAN [facility] ABO Rh A NEG 09/29/2020 2:45 PM ENDOCRINOLOGY PHYSICIAN [facility] Blood Bank BLOOD SPECIMEN / Unknown Lab Venipuncture / Unknown 09/29/2020 1:28 PM ENDOCRINOLOGY PHYSICIAN 09/29/2020 1:56 PM ENDOCRINOLOGY PHYSICIAN Khloe Partida [facility] - BLO OD BANK ORDERABLES Performing Organization Address City/[facility]/ZIP Co de Phone Number [facility] [address] [place] [address], [facility] [phone] * EKG 12-LEAD (09/29/2020 12:54 PM ENDOCRINOLOGY PHYSICIAN) Ventricular Rate 72 BPM [facility] QRS Duration ms 146 ms [facility] Q-T Interval ms 452 ms [facility] QTC Calculation (Bezet) 494 ms [facility] Calculated R Novelty -70 degrees [facility] Calculated T Novelty 25 degrees [facility] Interpretation EKG ATRIAL FIBRILLATION LEFT AXIS DEVIATION RIGHT BUNDLE BRANCH BLOCK T WAVE ABNORMALITY, CONSIDER LATERAL ISCHEMIA ABNORMAL ECG NO PREVIOUS ECGS AVAILABLE Confirmed by fellow Yenifer Watson ([id number]) on 10/04/2020 8:19:07 AM Confirmed by Ray Burns ([id number]) on 10/20/2020 10:18:00 AM [facility] 09/29/2020 12:5 4 PM ENDOCRINOLOGY PHYSICIAN 10/20/2020 10:18 AM ENDOCRINOLOGY PHYSICIAN Khloe Partida [facility] ECG ORDER BRIDGET [facility] Care Teams [employer] Relationship Specialty Start Date End Date Shamir Membreno MD [address] [place] [address] PCP - General 12/20/20 Inocente Nguyen MD [address] [place] [address] Ophthalmology 06/27/18 Junior Burch MD [address] [facility] [address] [place] [address] Orthopedic Surgery 06/27/18
--- OUTSIDE RECORDS SUMMARY | 2024-12-11 00:47 | XMS_ITS | Clinical Summary ---
Author Organization [facility] Address [address], [address] [address] Phone Care Team Providers Care Third Rigger Name Role Phone Shamir Membreno MD Primary [...] Recently Relevant to Health Maintenance Insurance MEDICARE [facility] Care Teams Third Rigger Relationship Specialty Start Date End Date Shamir Membreno MD PCP - General Family Medicine 01/22/19
--- OUTSIDE RECORDS SUMMARY | 2024-12-11 00:47 | XMS_ITS | Continuity of Care Document ---
Author Organization [facility] Address [address] [place] [address] Phone Care Team Providers Care Sprayer Operator Name Role Phone Elvia Lowe DPT Unavailable [...] Diagnoses Date Provider Providers Copied on Encounter [facility], [address], [place], [place], [id number], [place] tel:[phone] [place] No Information 2 Chrissy Gan. [address] [facility] tel: [phone] [address], [place], [place], [id number], tel:[phone] [place] No Information 0 1-201 2 Lowe Elvia. [address] [place] [address], [place] [address], . tel: [phone] [address], [place], [place], [id number], tel:[phone] [place] No Information 9-201 2 Lowe Elvia. [address] [place] [address], [place] [address], . tel: [phone] [address], [place], [place], [id number], tel:[phone] [place] No Information 6201 [address] Lowe Elvia. [address] [place] [address], [place] [address], . tel: [phone] [address], [id number], tel:[phone] [place] No Information 4201 2 Lowe Elvia. [address] [place] [address], [place] [address], . tel: [phone] [address], [place], [place], [id number], [phone] [place] Lumbago 2-201 2 Maria Teresa Lennox. [address] [place] [address], [place] [address], . tel: [phone] Family History Family Member Type Diagnosis Age At Onset No Information Payers Payer name Insurance type Covered constitution party ID Authoriza tion(s) No Information Social [...]
--- OUTSIDE RECORDS SUMMARY | 2024-12-11 00:47 | XMS_ITS ---
Author Organization [facility] [address] Address [address] [place] [address] Care Team Providers Care Grain Blender Name Role Phone Julieta Mulligan MD Unavailable [phone] Maggi Okeefe MD Primary Care Provider [phone] Jaci Castro MD Unavailable [phone] Active Problems Problem Noted Date Diagnosed Date PVD (peripheral vascular disease) 07/23/2024 Assessment & Plan (07/23/2024 9:39 AM CDT): Impression: Patient denies any symptoms of claudication, ischemic rest pain. Patient has an open ulceration to the plantar surface of the left 1st toe that has been present since September and is slowly healing. Patient is currently being treated by Wound Clinic at [facility]. Patient has palpable distal pulses to [...] (01/19/2022): Added automatically from request for surgery [id number] Papillary thyroid carcinoma 12/02/2020 Cancer Staging:Pathologic stage from 11/19/2020:No Stage Recommended(pT4a, cN0, cM0, Age at diagnosis: >= 55 years) - Signed by Julieta Mulligan MD on 12/02/2020 Mixed diabetic hyperlipidemi a associated with type 2 diabetes mellitus ([facility]) 06/23/2020 Hypertension associated with diabetes 06/23/2020 Benign hypertension with CKD (chronic kidney disease) stage III 03/12/2020 Chronic heart failure with p reserved ejection fraction ([facility] [place] [place] 03/12/2020 Encounter for monitoring sotalol therapy 019 Chronic fatigue 06/09/2019 Atrial flutter ([facility]) 05/30/2018 Morbid obesity with BMI of 40.0-44.9, adult 05/22 FRANCISCA on CPAP 06/04/2017 Morbid obesity ([facility] [place] [place] 12/08/2015 Overview (01/25/2017): Morbid obesity with BMI of 45.0-49.9, adult Chronic anticoagulation 12/08/2015 Overview (01/26/2017): Chronic anticoagulation Hypertensive heart disease with congestive heart failure 12/08/2015 Overview (01/26/2017): Hypertensive heart disease with diastolic heart failure Paroxysmal atrial fibrillation ([facility] [place] [place] 016 Overview (01/26/2017): Paroxysmal atrial fibrillation Type [...] pacer checks Q6 mo. Diabetic foot ulcer ([facility] [place] [place] 05/13/2014 Overview (01/25/2017): Ulcer of other part of foot Assessment & Plan (07/23/2024 9:44 AM CDT): Impression: Patient has a left plantar 1st toe ulceration that has been present since September after a fall. Patient is currently being treated by Wound Clinic at [facility]. Patient reports ulceration is healing and is small in size with no concern drainage. Plan: Recommend continue wound care as per Wound Clinic. -recommend x-ray and MRI contrast to the left 1st toe for further evaluation of underlying bone infection. Patient will require an open MRI due to having a pacemaker. -patient to follow-up in 2-3 weeks to review results. 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 Past Treatment and Therapy Plans No past plan information found. Radiation Treatments * Course C1 Thyroid 202012/02/2020 - 12/03/2020 Treatment Period Energy Fraction Dose Fractions Total Dose Plans Planned Thyroid_1 12/03/2020 - 12/03/2020 150 1 / 150 Reference Points Delivered Thyroid_1 12/03/2020 - 12/03/2020 150
--- OUTSIDE RECORDS SUMMARY | 2024-12-11 00:47 | XMS_ITS | Referral Summary ---
Author Organization [facility] [place] [address] [place] [address] [address] [place] [address] Care Team Providers Care Lawyer Real Estate Name Role Phone Julieta Mulligan MD Unavailable [phone] Maggi Okeefe MD Primary Care Provider [phone] Jaci Castro MD Unavailable [phone] Encounters Date Type Department Care Team Description 11/19/2024 8:30 AM ARNP Ancillary Procedure [facility] Card[facility] [address] [facility] [address] [place] [address] Presence of cardiac pacemaker; Tachycardia-bradycardi [...] 1 tablet (20 mg total) by mouth urgent care before breakfast Active loratadine (CLARITIN) 10 mg tabletIndication s:Allergic Rhinitis Take 1 tablet (10 mg total) by mouth urgent care before breakfast Active levothyroxine (SYNTHROID) 175 mcg tabletIndication s:Adjunct to Surgery or Radiotherapy for Thyroid Carcinoma Take 1 tablet (175 mcg total) by mouth daily 11/15/19 21 Active cholecalciferol (VITAMIN D-3) 87302 unit capsule Take 1 capsule (10,000 Units total) by mouth urgent care before breakfast Active calcium carbonate (CALCIUM 600 [...] (six) hours as needed for pain Active K[employer]cher[employer] G6 Sensor device REPLACE EVERY 10 DAYS [...] currently being treated by Wound Clinic at [facility]. Patient has palpable distal pulses to bilateral [...] (01/19/2022): Added automatically from request for surgery [id number] Papillary thyroid carcinoma 12/02/2020 Cancer Staging:Pathologic stage from 11/19/2020:No Stage Recommended(pT4a, cN0, cM0, Age at diagnosis: >= 55 years) - Signed by Julieta Mulligan MD on 12/02/2020 Mixed diabetic hyperlipidemi a associated with type 2 diabetes mellitus ([facility]) 06/23/2020 Hypertension associated with diabetes 06/23/2020 Benign hypertension with CKD (chronic kidney disease) stage III 03/12/2020 Chronic heart failure with p reserved ejection fraction ([facility]) 03/12/2020 Encounter for monitoring sotalol therapy 019 Chronic fatigue 06/09/2019 Atrial flutter ([facility]) 05/30/2018 Morbid obesity with BMI of 40.0-44.9, adult 05/22 FRANCISCA on CPAP 06/04/2017 Morbid obesity ([facility]) 12/08/2015 Overview (01/25/2017): Morbid obesity with BMI of 45.0-49.9, adult Chronic anticoagulation 12/08/2015 Overview (01/26/2017): Chronic anticoagulation Hypertensive heart disease with congestive heart failure 12/08/2015 Overview (01/26/2017): Hypertensive heart disease with diastolic heart failure Paroxysmal atrial fibrillation ([facility]) 016 Overview (01/26/2017): Paroxysmal atrial fibrillation Type [...] pacer checks Q6 mo. Diabetic foot ulcer ([facility]) 05/13/2014 Overview (01/25/2017): Ulcer of other part of foot Assessment & Plan (07/23/2024 9:44 AM CDT): Impression: Patient has a left plantar 1st toe ulceration that has been present since September after a fall. Patient is currently being treated by Wound Clinic at [facility]. Patient reports ulceration is healing and is small in size with no concern drainage. Plan: Recommend continue wound care as per Wound Clinic. -recommend x-ray and MRI contrast to the left 1st toe for further evaluation of underlying bone infection. Patient will require an open MRI due to having a pacemaker. -patient to follow-up in 2-3 weeks to review results. 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[facility]) 05/13/2014 Overview (01/25/2017): Tachy-jourdan syndrome Immunizations Immunization Administration Dates Next Due Pneumococcal Conjugate PCV [...] on file Legal Sex Male 2:11 AM ARNP Gender Identity Not on file Sexual Orientation [...] on file Medical Devices Implanted Type Area Sprue Knocker Device Identifier Shelf Expiration Date Model / Serial / Lot Depuy Orthopaedics Inc Smartset Medium Viscosity Cement 40gm Bone Gentamicin [id number] - Sna - [id number] Implanted:Qty: 1 on 02/02/2022 by Dominik Reynaga MD at [facility] Bone Cement Left: Knee Depuy Orthopaedics Inc 03/21/2023 [id number] / [id number] / [id number] Description:Implant pause pe rformed Depuy Orthopaedics Inc Smartset Medium Viscosity Cement 40gm Bone Sterile 3122-040 - Sna - [id number] Implanted:Qty: 1 on 02/02/2022 by Dominik Reynaga MD at [facility] Bone Cement Left: Knee Depuy Orthopaedics Inc 02/18/2023 3122-040 / NA / [id number] Description:Implant pause pe rformed Depuy Orthopaedics Inc [id number] Attune Cemented Cruciate Retaining Knee Left 9 Component Femoral - Sna - [id number] Implanted:Qty: 1 on 02/02/2022 by Dominik Reynaga MD at [facility] Other - see comments Left: Knee Depuy Orthopaedics Inc [id number] 07/21/2031 [id number] / NA / [id number] Depuy Orthopaed[employer] Inc [id number] Attune S+ Cement Fix Bearing Knee 9 Baseplate Tibial - Sna - [id number] Implanted:Qty: 1 on 02/02/2022 by Dominik Reynaga MD at [facility] Other - see comments Left: Knee Depuy Orthopaed[employer] Inc [id number] 05/21/2031 [id number] / NA / [id number] Depuy Orthopaed[employer] Inc [id number] Attune 7mm Cruciate Retaining Fix Bearing Knee 9 Insert Tibial - Sna - [id number] Implanted:Qty: 1 on 02/02/2022 by Dominik Reynaga MD at [facility] Other - see comments Left: Knee Depuy Orthopaed[employer] Inc [id number] 05/21/2026 [id number] / NA / [id number] Pacemaker-07/15 Implanted:06/23 by Mike Gardner MD (Quantity not on file) Pacemaker Chest Medtronic SSS, AT/AF ADAPTA [id number] / [id number] / Procedures Procedure Name Priority Date/Time Associated Diagnosis Comments DEVICE CHECK - IN OFFICE Routine 11/19/2024 8:12 AM ARNP Presence of cardiac pacemaker Tachycardia-bradycard ia (CMS/HCC) (HCC) Atrial fibrillation and flutter (HCC) LIPID PANEL Routine 03/04/2024 2:20 PM CDT EGFR STAT 02/02/2022 10:16 AM CDT POCT HEMOGLOBIN A1C Routine 01/24/2022 9 :26 AM CDT from Last 3 Months or Most Recently Relevant to Health Maintenance Results * DEVICE CHECK - IN OFFICE (11/19/2024 8:12 AM ARNP) Anatomical Region Laterality Modality Other Narrative 11/20/2024 1:07 PM ARNP Medtronic Adapta Dual Pacemaker, Dx; SSS, AT/AF. DOI 07/15/[address] Gardner. Pt declines remote monitoring. Office pacer checks Q6 mo. Programmed to VDI mode-Bill Single PM. Supervising MD: Office pacemaker evaluation demonstrated normal device function. Left pectoral incision well healed without signs of infection noted. Battery function-2.69V, 17 months remaining battery life to EMILY. Appropriate lead measurements noted. Presenting rhythm-Aflutter VS-ELECTRICAL INTERN. ELECTRICAL INTERN-64.5%. AF burden-64.1%. Pt is taking Eliquis and Sotalol. No ventricular high rate episode noted. No changes made to device settings today. See scanned report. Office pacemaker f/u 05/06/2025. Racquel Eugene RN Rafael Nguyen MD CV CARDIAC SERVICES PROC EDURES Final Result * Lipid panel (03/04/2024 2:20 PM CDT) Pathologist [facility] SCRIBED Cholesterol, Total 163 0 - 200 [...] ORDERABLES Suri l Result Performing Organization Address [facility] de Phone Number [facility] [address] [facility] [place] [address] * (ABNORMAL) POCT hemoglobin A1c (01/24/2022 9:26 AM CDT) Hgb A1C, POC 6.2(H) 4.0 - 5.6 % [facility] Est Average Gluc POC 131 mg/dL [facility] Comment: The ADA recommends reporting an estimated Average Glucose (eAG) with all Hemoglobin A1c results using the equation derived from a study of 507 normal and diabetic adults. Minority populations were underrepresented and children were not included. (Diabetes Care 31:9427-5680, 2008). The eAG is not equivalent to a fasting glucose. Blood 01/24/2022 9:26 AM CDT 01/24/2022 9:26 AM CDT Dominik Reynaga MD POINT OF CARE TEST ORDERA BLES Final Result [facility] [place] [address] from Last 3 Months or Most Recently Relevant to Health Maintenance Insurance MEDICARE [facility] MEDICARE [facility] [address] MEDICARE [facility] MEDICARE SUPPLEMENT Advance Directives For more information, please contact: [phone] * Full Code (Latest Code Status on File) Date Activated Date Inactivated Comments 02/02/2022 11:10 AM 02/03/2022 5:21 PM Care Teams Lawyer Real Estate Relationship Specialty Start Date End Date Maggi Okeefe MD [address] [place], [place] [id number] PCP - General Family Medicine 09/27/21 Julieta Mulligan MD [address], [address] [place] [address] Resident Radiation Oncology 12/11/20 Jaci Castro MD [address] [facility] [place] [address] Radiation Oncologist Radiation Oncology 12/26/22
--- OUTSIDE RECORDS SUMMARY | 2024-12-11 00:47 | XMS_ITS | Clinical Summary ---
Author Organization [facility] Address [address] [place] [address] Care Team Providers Care Evp Global Multimedia Sales Name Role Phone None, Provider Primary Care Provider Unavaila ble Social History Tobacco Use Types Packs/Day Years Used Date Smoking Tobacco: Never Assessed Sex and Gender Information Value Date Recorded Sex Assigned at Not on file Legal Sex Male 10:52 AM PLAYER DEVELOPMENT MANAGER Gender Identity Not on file Sexual Orientation Not on file Last Filed Vital Signs Vital Sign Reading Time Taken Comments Blood Pressure 92/58 11/16/2021 12:05 PM PLAYER DEVELOPMENT MANAGER Pulse 65 11/16/2021 11:06 AM PLAYER DEVELOPMENT MANAGER Temperature 36.7 C (98 F) 11/16/2021 11:06 AM PLAYER DEVELOPMENT MANAGER Respiratory Rate 20 11/16/2021 11:0 6 AM PLAYER DEVELOPMENT MANAGER Oxygen Saturation 99% 11/16/2021 12: 15 PM PLAYER DEVELOPMENT MANAGER Inhaled Oxygen Concentration - - Weight 138.8 kg (306 lb) 11/16/2021 11: 06 AM PLAYER DEVELOPMENT MANAGER has had weight loss Height 182.9 cm (6') 11/16/2021 11:06 AM PLAYER DEVELOPMENT MANAGER Body Mass Index 41.5 11/16/2021 11:06 AM PLAYER DEVELOPMENT MANAGER Plan of Treatment Health Maintenance Due Date Last Done Comments Colorectal Cancer Screening Colonoscopy (10 Years) 1950 Hepatitis C 01/03/1968 DTaP, Tdap and Td Vaccines ( 1 - Tdap) 1969 Zoster Vaccines (1 of 2) 01/03/2000 Annual Medicare Wellness Visit 2015 Pneumococcal Vaccine: 65+ Ye ars (2 of 2 - PPSV23 or PCV20) 01/29/2020 01/28/2019 COVID-19 Vaccine ( 2023-2 5 season) 2024 Influenza Adult (#1) 2024 RSV Immunization or 60+ Years (1 - 1-dose 75+ series) 2025 Meningococcal B Vaccine Aged Out No l onger eligible based on patient's age to complete this topic Meningococcal Vaccine Aged Out No reagan mnaolo eligible based on patient's age to complete this topic RSV Immunizations Under 20 Months Aged Out No longer eligible based on patient's age to complete this topic Medical Devices Implanted Type Area Customer Servicer Device Identifier Shelf Expiration Date Model / Serial / Lot Ra Lead-07/15/2014 Implanted:Qty: 1 on 07/15/2014 Lead Implant Right: Atrium [employer]TRONIC CARDIAC RHYTHM AND HEART FAILURE - DIV M 5076-52 / [id number] / Rv Lead-07/15/2014 Implanted:Qty: 1 on 07/15/2014 Lead Implant Right: Ventricle [employer] CARDIAC RHYTHM AND HEART FAILURE - DIV M 5076-58 / [id number] / Pacemaker-07/15 Implanted:Qty: 1 on 07/15/2014 Pacemaker Chest [employer] CARDIAC RHYTHM AND HEART FAILURE - DIV M ADDR01 / [id number] / Description:DEVICE IS NOT MR CONDITIONAL Insurance MEDICARE [facility] Care Teams Evp Global Mult[employer] Sales Relationship Specialty Start Date End Date None, Provider, PCP - General 11/16/21
--- OUTSIDE RECORDS SUMMARY | 2024-12-11 00:47 | XMS_ITS | Clinical Summary ---
Author Organization [facility] Address [address] [place] [address] Care Team Providers Care Certified Professional Ergonomist Name Role Phone Inocente Nguyen MD Unavailable [phone] Junior Burch MD Unavailable [phone] Shamir Membreno MD Primary Care Provider Source Comments [facility],non-owned Affiliates and Associated Physician Practices is amultiple site organization consisting of ambulatory clinics and hospital sitesin [place], [place], [place] and [place]. This disclosure is being madepursuant to the Care Everywhere program and may not contain all information available regarding this patient. Last updated 18.[facility] Allergies Active Allergy Reactions Criticality Noted [...] Comments Blood Pressure 114/76 11/10/2020 12:57 PM MEDICAL SERVICE TECHNICIAN Pulse 65 11/10/2020 12:57 PM MEDICAL SERVICE TECHNICIAN Temperature 36.2 C (97.1 F) 10/20/2020 3:23 PM MEDICAL SERVICE TECHNICIAN Respiratory Rate 20 10/08/2020 8:28 AM MEDICAL SERVICE TECHNICIAN Oxygen Saturation 95% 10/08/2020 8:28 AM MEDICAL SERVICE TECHNICIAN Inhaled Oxygen Concentration - - Weight 148.3 kg (327 lb) 11/10/2020 12:57 PM MEDICAL SERVICE TECHNICIAN Height 182.9 cm (6') 11/10/2020 12:57 PM MEDICAL SERVICE TECHNICIAN Body Mass Index 44.35 11/10/2020 12:57 PM MEDICAL SERVICE TECHNICIAN Plan of Treatment Health Maintenance Due Date [...] PANEL (CALCIUM TOTAL) STAT 10/08/2020 9:17 AM MEDICAL SERVICE TECHNICIAN S/P thyroidectomy from Last 3 Months or Most Recently Relevant to Health Maintenance Results * (ABNORMAL) BASIC METABOLIC PANEL (CALCIUM TOTAL) (10/08/2020 9:17 AM MEDICAL SERVICE TECHNICIAN) BUN 23 7 - 26 mg/dL 10/08/2020 9:52 AM [facility] Creatinine 1.3(H) 0.6 - 1.2 mg/dL 10/08/2020 9:52 AM [facility] Sodium 138 136 - 145 mmol/L 10/08/2020 9:52 AM [facility] Potassium 4.5 3.5 - 4.5 mmol/L 10/08/2020 9:52 AM [facility] Chloride 97(L) 98 - 107 mmol/L 10/08/2020 9:52 AM [facility] CO2 26 22 - 29 mmol/L 10/08/2020 9:52 AM [facility] Glucose 247(H) 70 - 115 mg/dL 10/08/2020 9:52 AM [facility] Calcium 8.3(L) 8.4 - 10.2 mg/dL 10/08/2020 9:52 AM [facility] Anion Gap 20(H) 8 - 18 10/08/2020 9:52 AM [facility] BUN/Creatinine Ratio 18 7 - 23 10/08/2020 9:52 AM [facility] Osmolality Calculated 298 270 - 300 mOsm/kg 10/08/2020 9:52 AM MEDICAL SERVICE TECHNICIAN [facility] eGFR 55(L) >60 mL/min/1.7 3 m2 10/08/2020 9:52 AM [facility] Blood BLOOD SPECIMEN / Unknown Lab Venipuncture / Unknown 10/08/2020 9:17 AM MEDICAL SERVICE TECHNICIAN 10/08/2020 9:23 AM MEDICAL SERVICE TECHNICIAN Adam Iniguez MD LAB - CHEMISTRY [facility] [address] [place] [address], [facility] [phone] from Last 3 Months or Most Recently Relevant to Health Maintenance Advance Directives * Full Code (Latest Code Status on File) Date Activated Date Inactivated Comments 10/07/2020 10:34 PM 10/08/2020 1:28 PM Care Teams Certified Professional Ergonomist Relationship Specialty Start Date End Date Shamir Membreno MD [address] [place] [address] PCP - General 12/20/20 Inocetne Nguyen MD [address] [facility] [address] [place] [address] Ophthalmology 06/27/18 Junior Burch MD [address] [address] [address] [place] [address] Orthopedic Surgery 06/27/18
--- OUTSIDE RECORDS SUMMARY | 2024-12-11 00:47 | XMS_ITS | Clinical Summary ---
Author Organization [facility] [address] Address [address] [place] [address] Care Team Providers Care Spring Coiling Machine Setter Name Role Phone Julieta Mulligan MD Unavailable [phone] Maggi Okeefe MD Primary Care Provider [phone] Jaci Castro MD Unavailable Allergies Active Allergy [...] 1 tablet (20 mg total) by mouth freelance designer before breakfast Active loratadine (CLARITIN) 10 mg tabletIndication s:Allergic Rhinitis Take 1 tablet (10 mg total) by mouth freelance designer before breakfast Active levothyroxine (SYNTHROID) 175 mcg tabletIndication s:Adjunct to Surgery or Radiotherapy for Thyroid Carcinoma Take 1 tablet (175 mcg total) by mouth daily 11/15/19 21 Active cholecalciferol (VITAMIN D-3) 12470 unit capsule Take 1 capsule (10,000 Units total) by mouth freelance designer before breakfast Active calcium carbonate (CALCIUM 600 [...] (six) hours as needed for pain Active Lab42 G6 Sensor device REPLACE EVERY 10 DAYS [...] currently being treated by Wound Clinic at [facility]. Patient has palpable distal pulses [...] (01/19/2022): Added automatically from request for surgery [id number] Papillary thyroid carcinoma 12/02/2020 Cancer Staging:Pathologic stage from 11/19/2020:No Stage Recommended(pT4a, cN0, cM0, Age at diagnosis: >= 55 years) - Signed by Julieta Mulligan MD on 12/02/2020 Mixed diabetic hyperlipidemi a associated with type 2 diabetes mellitus ([facility]) 06/23/2020 Hypertension associated with diabetes 06/23/2020 Benign hypertension with CKD (chronic kidney disease) stage III 03/12/2020 Chronic heart failure with p reserved ejection fraction ([facility]) 03/12/2020 Encounter for monitoring sotalol therapy 019 Chronic fatigue 06/09/2019 Atrial flutter ([facility]) 05/30/2018 Morbid obesity with BMI of 40.0-44.9, adult 05/22 FRANCISCA on CPAP 06/04/2017 Morbid obesity ([facility]) 12/08/2015 Overview (01/25/2017): Morbid obesity with [...] currently being treated by Wound Clinic at [facility]. Patient reports ulceration is healing [...] Department Care Team Description 11/19/2024 8:30 AM CROSSBAND LAYER Ancillary Procedure [facility] Cardiology [address] [place] [address] Presence of cardiac pacemaker; Tachycardia-bradycardi a (CMS/HCC) (HCC); Atrial fibrillation and flutter (HCC) from Last 3 Months Immunizations Immunization Administration Dates Next Due Pneumococcal [...] on file Legal Sex Male 2:11 AM CROSSBAND LAYER Gender Identity Not on file Sexual Orientation [...] 01/28/2019, 09/21 Medical Devices Implanted Type Area Copier Repair Technician Device Identifier Shelf Expiration Date Model / Serial / Lot Depuy Orthopaed[employer] Inc Smartset Medium Viscosity Cement 40gm Bone Gentamicin [id number] - Sna - [id number] Implanted:Qty: 1 on 02/02/2022 by Dominik Reynaga MD at [facility] Bone Cement Left: Knee [employer]uy [employer] Inc 03/21/2023 [id number] / NA / [id number] Description:Implant pause pe rformed Depuy [employer] Inc Smartset Medium Viscosity Cement 40gm Bone Sterile 3122-040 - Sna - [id number] Implanted:Qty: 1 on 02/02/2022 by Dominik Reynaga MD at [facility] Bone Cement Left: Knee [employer] Inc 02/18/2023 3122-040 / NA / [id number] Description:Implant pause pe rformed Depuy [employer] Inc [id number] Attune Cemented Cruciate Retaining Knee Left 9 Component Femoral - Sna - [id number] Implanted:Qty: 1 on 02/02/2022 by Dominik Reynaga MD at [facility] Other - see comments Left: Knee [employer]uy [employer] Inc [id number] 07/21/2031 [id number] / NA / [id number] Depuy [employer] Inc [id number] Attune S+ Cement Fix Bearing Knee 9 Baseplate Tibial - Sna - [id number] Implanted:Qty: 1 on 02/02/2022 by Dominik Reynaga MD at [facility] Other - see comments Left: Knee [employer]uy [employer] Inc [id number] 05/21/2031 [id number] / NA / [id number] Depuy [employer] Inc [id number] Attune 7mm Cruciate Retaining Fix Bearing Knee 9 Insert Tibial - Sna - [id number] Implanted:Qty: 1 on 02/02/2022 by Dominik Reynaga MD at [facility] Other - see comments Left: Knee [employer]uy [employer] Inc [id number] 05/21/2026 [id number] / NA / [id number] Pacemaker-07/15 Implanted:06/23 by Mike Gardner MD (Quantity not on file) Pacemaker Chest Medtronic SSS, AT/AF ADAPTA [id number] / [id number] / Procedures Procedure Name Priority Date/Time Associated Diagnosis Comments DEVICE CHECK - IN OFFICE Routine 11/19/2024 8:12 AM CROSSBAND LAYER Presence of cardiac pacemaker Tachycardia-bradycard ia (CMS/HCC) (HCC) Atrial fibrillation and flutter (HCC) LIPID PANEL Routine 03/04/2024 2:20 PM CDT EGFR STAT 02/02/2022 10:16 AM CDT POCT HEMOGLOBIN A1C Routine 01/24/2022 9 :26 AM CDT from Last 3 Months or Most Recently Relevant to Health Maintenance Results * DEVICE CHECK - IN OFFICE (11/19/2024 8:12 AM CROSSBAND LAYER) Anatomical Region Laterality Modality Other Narrative 11/20/2024 1:07 PM CROSSBAND LAYER Medtronic Adapta Dual Pacemaker, Dx; SSS, AT/AF. DOI 07/15/[address] Gardner. Pt declines remote monitoring. Office pacer checks Q6 mo. Programmed to VDI mode-Bill Single PM. Supervising MD: Office pacemaker evaluation demonstrated normal device function. Left pectoral incision well healed without signs of infection noted. Battery function-2.69V, 17 months remaining battery life to EMILY. Appropriate lead measurements noted. Presenting rhythm-Aflutter VS-COLLECTION SPECIALIST. COLLECTION SPECIALIST-64.5%. AF burden-64.1%. Pt is taking Eliquis and Sotalol. No ventricular high rate episode noted. No changes made to device settings today. See scanned report. Office pacemaker f/u 05/06/2025. Racquel Eugene RN Rafael Nguyen MD CV CARDIAC SERVICES PROC EDURES Final Result * Lipid panel (03/04/2024 2:20 PM CDT) Pathologist [facility] SCRIBED Cholesterol, Total 163 0 - 200 [...] ORDERABLES Suri l Result Performing Organization Address [facility] Co de Phone Number [facility] [address] [facility] [place] [address] * (ABNORMAL) POCT hemoglobin A1c (01/24/2022 9:26 AM CDT) Hgb A1C, POC 6.2(H) 4.0 - 5.6 % [facility] Est Average Gluc POC 131 mg/dL [facility] Comment: The ADA recommends reporting an estimated Average Glucose (eAG) with all Hemoglobin A1c results using the equation derived from a study of 507 normal and diabetic adults. Minority populations were underrepresented and children were not included. (Diabetes Care 31:1111-2540, 2008). The eAG is not equivalent to a fasting glucose. Blood 01/24/2022 9:26 AM CDT 01/24/2022 9:26 AM CDT Dominik Reynaga MD POINT OF CARE TEST ORDERA BLES Final Result Performing Organization Address City/[facility]/ZIP Co de Phone Number [facility] [place] [address] from Last 3 Months or Most Recently Relevant to Health Maintenance Insurance MEDICARE [facility] MEDICARE [facility] MEDICARE [facility] MEDICARE SUPPLEMENT Advance Directives For more information, please contact: [phone] * Full Code (Latest Code Status on File) Date Activated Date Inactivated Comments 02/02/2022 11:10 AM 02/03/2022 5:21 PM Care Teams Spring Coiling Machine Setter Relationship Specialty Start Date End Date Maggi Okeefe MD [address] [place] [address] PCP - General Family Medicine 09/27/21 Julieta Mulligan MD [address] [place] [address] Resident Radiation Oncology 12/11/20 Jaci Castro MD [address] [facility] [place] [address] Radiation Oncologist Radiation Oncology 12/26/22
[2024-12-11 06:15] VITALS: BP 106/71; PULSE 60; RESP 16; TEMP 36.1; O2SAT 100; BMI 38.5
--- NOTE | 2024-12-11 06:31 | P.PNAN_ITS ---
Anes - Initial Pre Proc Eval Procedure: Operation Date: 12/11/24 07:30 Proposed Procedures p Left Hallux Interphalangeal Joint Arthrodesis, Excisional Debridement Left Diabetic Foot Ulcer - Junior Burch MD Date/Time: 12/11/24 06:31 Surgeon: Junior Burch MD Pre Op Diagnosis: lft hallux rigidus, arthritis, diabetic foot ulcer Patient Data Age: 74 Gender: M Height: 1.83 m Weight: 127.05 kg Allergies Allergy/AdvReac Type Severity Reaction Status Date / Time phenylephrine (From Allergy Intermediate Unknown Verified 11/28/24 14:28 Eb-Synephrine (phenylephrine)) Home Medications ?Medication ?Instructions ?Recorded ?Confirmed ?Type potassium chloride 20 mEq 20 meq PO QPM 10/28/19 11/28/24 History tablet,extended release safety needles 31 gauge x 5/16 #100 ea 11/10/19 11/19/24 Rx apixaban 5 mg tablet (Eliquis) 5 mg PO BID 11/18/19 11/28/24 History sotalol 80 mg tablet 80 mg PO BID 02/26/20 11/28/24 History lancets 33 gauge (OneTouch Delica #300 ea 02/28/21 11/19/24 Rx Lancets) lisinopril 5 mg tablet 5 mg PO DAILY 02/15/22 11/28/24 History orthotic inserts #1 ea 12/14/23 11/19/24 Rx diabetic shoes #1 ea 12/28/23 11/19/24 Rx blood-glucose meter,continuous #1 ea 02/26/24 11/19/24 Rx (Dexcom G7 School Lunch Manager) blood-glucose sensor (Dexcom G7 #9 ea 02/26/24 11/19/24 Rx Sensor device) cholecalciferol (vitamin D3) 25 25 mcg PO DAILY 02/26/24 11/28/24 History mcg (1,000 unit) capsule bumetanide 1 mg tablet 2 mg PO QAM 04/01/24 11/28/24 History calcium carbonate (Calcium 600) 600 mg PO BID 04/01/24 11/28/24 History inulin 2 gram chewable tablet 5 g PO QAM AND QPM 04/01/24 11/28/24 History (Fiber Gummies) empagliflozin 10 mg tablet 10 mg PO DAILY #30 tabs 08/19/24 11/28/24 Rx (Jardiance) semaglutide 2 mg/dose (8 mg/3 mL) See Rx Instructions .Route 09/04/24 11/28/24 Rx subcutaneous pen injector (Ozempic) .COMPLEX #9 mL allopurinol 300 mg tablet 300 mg PO DAILY #90 tabs 10/18/24 11/28/24 Rx blood sugar diagnostic #100 ea 10/29/24 11/19/24 Rx blood sugar diagnostic (Blood #100 ea 10/29/24 11/19/24 Rx Glucose Test strips) blood-glucose meter (Blood Glucose #1 ea 10/29/24 11/19/24 Rx Monitoring kit) Unithroid 150 mcg tablet 150 mcg PO DAILY #90 tabs 11/17/24 11/28/24 Rx (levothyroxine) rosuvastatin 40 mg tablet See Rx Instructions .Route 11/18/24 11/28/24 Rx .COMPLEX #90 tabs insulin NPH-regular 70-30 U-100 See Rx Instructions .Route .COMPLEX 11/28/24 11/28/24 History insulin 100 unit/mL subcutaneous pen (Humulin 70/30 U-100 KwikPen) rosuvastatin 10 mg tablet 40 mg PO DAILY 11/28/24 11/28/24 History pen needle, diabetic 31 gauge x #200 ea 12/01/24 Rx 01/04 (BD Ultra-Fine Mini Pen Needle) Patient hx anesthesia problems: none Family hx anesthesia problems: none Results Review: All pre-operative results and documents have been reviewed as part of the pre- operative evaluation. [facility] Past Medical History Medical History Flat foot [pes planus] (acquired), left foot Acquired hallux valgus of left foot Hyperlipidemia LDL goal <100 Metabolic syndrome Ulcer of heel Hypothyroidism (acquired) Diabetic foot ulcer Thyroid cancer Multinodular goiter GERD (gastroesophageal reflux disease) HLD (hyperlipidemia) CKD (chronic kidney disease) PAD (peripheral artery disease) Adenomatous colon polyp Osteopenia Knee joint effusion Degenerative joint disease of knee AVN (avascular necrosis of bone) Nocturia Hypogonadism in male Chronic kidney disease Diabetic vasculopathy History of colon polyps Diabetic neuropathy Diastolic congestive heart failure History of foot ulcer Tachy-jourdan syndrome Paroxysmal atrial fibrillation Morbid obesity with BMI of 45.0-49.9, adult FRANCISCA on CPAP Erectile dysfunction Osteoarthritis Atrial fibrillation Pacemaker Gout Primary hypertension Type 2 diabetes mellitus with diabetic neuropathic arthropathy, with long-term current use of insulin Last A1C as of 03/09/20-7.4 Peripheral neuropathy Surgical History Surgical History History of heart surgery 07/15/14, pacemaker installed History of foot surgery multiple foot ulcers History of total knee replacement 02/01/22, left knee H/O thyroidectomy 10/07/2021 Family History Family History Other Cerebrovascular accident Diabetes mellitus Family history of arthritis Family history of cardiovascular disease Family history of gout Family history of hepatitis Family history of malignant neoplasm Family history of malignant neoplasm of thyroid Family history of thyroid disease Hypertension Social History Social History Social History: Patient lives at home with his who is suffering from dementia. His daughter who is a registered nurse here at [facility] is very active in helpful in his care. Smoking status: Never smoker Second hand tobacco smoke exposure: No Alcohol intake: current Substance use: never Substance use type: does not use Do You Feel Safe in your Home?: Yes Lack of Transportation: No Lack of Food: Never True Current Housing: I Have Housing Concerned About Future Housing: No Difficulty Paying Gas/Electric Bills: No Difficulty Paying for Meds: No Currently Unemployed: No Education: Bachelor's Degree Difficulty w/ Childcare or Family Care: No Living arrangements: with family Occupation/Education: retired Additional occupation/education comments: He is retired as a daycare provider Gender identity (if verbalized by the patient): Male Sexual Orientation (if Verbalized by the Patient): Straight or Heterosexual Spiritual care concerns: No Anes - Eval Final PreProcedure Day of Procedure 12/11/24 06:31 Patient weight: obese Heart: regular rate and rhythm (paced) Lungs: clear to auscultation Airway: Mallampati scale class II Neurological: alert and oriented Last oral intake: >/= 8 hours ASA classification: IV Emergent: no Anesthetic plan: proceed Anesthesia type and monitoring: general GIVS and standard monitoring Results Review: All pre-operative results and documents have been reviewed as part of the pre- operative evaluation. Informed Consent: The patient's anesthetic plan and its attendant risks and benefits were discussed with the patient/family/POA. Questions were solicited and answers provided to the satisfaction of the patient/family/POA.
[2024-12-11] MEDS: LACTATED RINGERS 1,000 ML 30 ML IV CONT (07:00)
[2024-12-11 07:03] LABS: Glucose Point of Care 91 mg/dl (65-105)
[2024-12-11] MEDS: ACETAMINOPHEN 500 MG TABLET 1000 MG PO (07:04)
[2024-12-11] MEDS: KETOROLAC 15 MG/ML VIAL (*BKC) IV PUSH (07:05)
--- NOTE | 2024-12-11 07:11 | WPDHPUPDATE1 ---
History and Physical Update Update Date/Time: 12/11/24 07:11 History and Physical has been reviewed, including an updated exam of the patient. There are NO changes in the patient's condition. New area of inflammation at 4th toenail. No drainage. Will wash and debride area as necessary as described with debridement of foot. Risks, benefits, and alternatives have been discussed and questions answered. Patient agrees to proceed with procedure.
[2024-12-11 07:15] LABS: Prothrombin Time 13.7 Seconds (11.1-14.7)
[2024-12-11] MEDS: ceFAZolin 3 GM/D5W 100 ML 100 ML IVPB (07:22)
[2024-12-11] MEDS: BUPivacaine HCL 0.5% 10 ML AMP 20 ML INFILTRATE (07:42)
[2024-12-11 08:28] VITALS: BP 136/79; PULSE 58; RESP 12; O2SAT 99
[2024-12-11 08:35] LABS: Glucose Point of Care 88 mg/dl (65-105)
--- NOTE | 2024-12-11 08:37 | W.PM.PROC2 ---
Procedure Note - Detailed Date of Procedure 12/11/24 Pre-op Diagnosis lft hallux rigidus, arthritis, diabetic foot ulcer Post-op Diagnosis Same Procedure Performed Left hallux interphalangeal arthrodesis, excisional debridement of diabetic foot ulcer plantar hallux and 4th toe Surgeon Junior Burch MD Kettle Room Helper 1st temporary office assistant Anesthesia MAC Indications 74-year-old with diabetes peripheral neuropathy with chronic ulceration and diabetic foot ulcer of the left hallux and recent diabetic foot ulcer 4th toe. At risk for deep infection and osteomyelitis and loss of limb. Presents for operative treatment of the hallux deformity as well as debridement of the diabetic ulcer. Findings 1.5 cm diabetic foot ulcer plantar hallux extending to the muscle without involvement of bone. 1 cm foot ulcer of the distal 4th toe through the dermis without bone or tendon involvement. Description of Procedure Patient identified in the preoperative holding. Informed consent given. Operative extremity marked. Patient received intravenous antibiotics. Patient brought to the operating room where underwent IV sedation anesthetic by anesthesia team. Positioned supine on operating room table. Time-out performed confirming the patient, site of the surgery and the plan. Left foot prepped draped usual sterile surgical fashion using a Betadine prep skin solution. Foot and Ankle exsanguinated and calf tourniquet inflated to 250 mmHg. Longitudinal incision made with a 15 blade knife over the dorsum of the hallux interphalangeal joint. Hemostasis controlled electrocautery. The extensor tendon was elevated off of the dorsal joint capsule of the interphalangeal joint. Care was taken not to disrupt the nail bed. The joint was inspected and noted to be degenerative with valgus angulation. Osteotome and rongeur were used to remove the degenerative articular surface of both the proximal and distal phalanx. The joint was irrigated with saline. Joint was then reduced taking care to bring the toe out of valgus and into neutral alignment as well as supinate the end of the toe to improve the weight-bearing pad. This was pinned in checked with image intensification. Fixation achieved with a 4.0 mm headless cannulated screw and 9 mm staple. Fluoroscopy confirmed placement of the hardware and reduction. Wound irrigated with saline and the extensor tendon repaired with 3-0 Monocryl interrupted suture. Skin repaired with 3-0 Monocryl subcuticular interrupted suture and 3-0 nylon interrupted suture. Diabetic foot ulcer then addressed. 15 blade knife used to excise and sharply debride the plantar ulcer including skin, subcutaneous tissue and muscle. Devitalized and nonviable tissue was sharply excised and removed. Healthy bleeding tissue noted. Ulcer on the hallux and 4th toe both debrided. Antibiotic ointment then applied to the ulcer after irrigation. Tourniquet released. Sterile dressing applied. The patient was then woken from anesthesia, extubated and taken to the recovery room in stable condition. All sponge, needle, instrument counts were correct at the end of the case. Implants Arthrex 4.0 mm cannulated screw, 9 x 10 mm staple Estimated Blood Loss 5 Tourniquet Time Total Tourniquet Time: 40 Drains No Packing No Pathology None sent Complications None Condition Stable Disposition PACU [facility] Billing Surgery - Charge Forward: Surgery Billing ([id number], [id number])
[2024-12-11 08:55] VITALS: BP 118/69; PULSE 59; RESP 14; O2SAT 100
== END 2024-12-11 09:21 | disposition home or self-care (01) ==
PROVIDERS: Anesthesiology; PCP Family Medicine; Visit Provider Orthopaedic Surgery
PROC: (CPT 28750; principal; 2024-12-11 07:30)
DX: E11.621 Type 2 diabetes mellitus with foot ulcer (principal); L97.525 Non-pressure chronic ulcer of other part of left foot with muscle involvement without evidence of necrosis; M20.12 Hallux valgus (acquired), left foot; M21.42 Flat foot [pes planus] (acquired), left foot; I12.9 Hypertensive chronic kidney disease with stage 1 through stage 4 chronic kidney disease, or unspecified chronic kidney disease; E11.22 Type 2 diabetes mellitus with diabetic chronic kidney disease; N18.9 Chronic kidney disease, unspecified; E11.610 Type 2 diabetes mellitus with diabetic neuropathic arthropathy; E11.42 Type 2 diabetes mellitus with diabetic polyneuropathy; I11.0 Hypertensive heart disease with heart failure; I50.30 Unspecified diastolic (congestive) heart failure; G62.9 Polyneuropathy, unspecified; E03.9 Hypothyroidism, unspecified; K21.9 Gastro-esophageal reflux disease without esophagitis; M85.88 Other specified disorders of bone density and structure, other site; I48.0 Paroxysmal atrial fibrillation; G47.33 Obstructive sleep apnea (adult) (pediatric); N52.9 Male erectile dysfunction, unspecified; E29.1 Testicular hypofunction; I73.9 Peripheral vascular disease, unspecified; M17.10 Unilateral primary osteoarthritis, unspecified knee; M87.9 Osteonecrosis, unspecified; I49.5 Sick sinus syndrome; E66.9 Obesity, unspecified; Z68.38 Body mass index [BMI] 38.0-38.9, adult; Z79.4 Long term (current) use of insulin; Z79.01 Long term (current) use of anticoagulants; Z79.84 Long term (current) use of oral hypoglycemic drugs; Z79.85 Long-term (current) use of injectable non-insulin antidiabetic drugs; Z99.89 Dependence on other enabling machines and devices; Z98.890 Other specified postprocedural states; Z95.0 Presence of cardiac pacemaker; Z85.850 Personal history of malignant neoplasm of thyroid; Z86.0100 Personal history of colon polyps, unspecified; Z80.8 Family history of malignant neoplasm of other organs or systems; Z82.49 Family history of ischemic heart disease and other diseases of the circulatory system
CPT/HCPCS: 28755; 11043; 36415; 82948; 85610; 99199; A9270; C1713; J0690; J1885; J2250; J3010; J7120

== ENCOUNTER 2025-08-18 00:54 | Day surgery (SDC) | payer MEDICARE, SELFPAY ==
--- OUTSIDE RECORDS SUMMARY | 2012-08-28 09:00 | XMS_ITS | Continuity of Care Document ---
Author Organization [facility] Address [address] [place] [address] Phone Care Team Providers Care Senior Consumer Insights Consultant Name Role Phone Elvia Lowe DPT Unavailable Unavailable Procedures Procedure Date PT RE-EVALUATION THERAPEUTIC EXERCISES NEUROMUSCULAR RE-ED MANUAL THERAPY HOT/COLD PACK ELECTRIC STIMULATION UNATT THERAPEUTIC EXERCISES NEUROMUSCULAR RE-ED MANUAL THERAPY HOT/COLD PACK ELECTRIC STIMULATION UNATT THERAPEUTIC EXERCISES NEUROMUSCULAR RE-ED MANUAL THERAPY HOT/COLD PACK ELECTRIC STIMULATION UNATT THERAPEUTIC EXERCISES NEUROMUSCULAR RE-ED MANUAL THERAPY HOT/COLD PACK ELECTRIC STIMULATION UNATT THERAPEUTIC EXERCISES NEUROMUSCULAR RE-ED MANUAL THERAPY HOT/COLD PACK ELECTRIC STIMULATION UNATT THERAPEUTIC EXERCISES MANUAL THERAPY HOT/COLD PACK ELECTRIC STIMULATION UNATT PT RE-EVALUATION Advance Directives Directive Yes / No Effective Date File Name No Information Encounters Encounter Description Practice Location Reason(s) For Visit Diagnoses Date Provider Providers Copied on Encounter [facility], [address], [place], [place], [id number], [place] tel:[phone] [place] No Information 2 Chrissy Gan. [address] [facility] tel: [phone] [address], [place], [place], [id number], tel:[phone] [place] No Information 0 1-201 2 Lowe Elvia. [address] [place] [address], [place] [address], . tel: [phone] [address], [place], [place], [id number], tel:[phone] [place] No Information 9-201 2 Lowe Elvia. [address] [place] [address], [place] [address], . tel: [phone] [address], [place], [place], [id number], tel:[phone] [place] No Information 6201 2 Lowe Elvia. [address] [place] [address], [place] [address], . tel: [phone] [address], [id number], tel:[phone] [place] No Information 4201 2 Lowe Levia. [address] [place] [address], [place] [address], . tel: [phone] [address], [place], [place], [id number], [phone] [place] Lumbago 2-201 2 Maria Teresa Lennox. [address] [place] [address], [place] [address], . tel: [phone] Family History Family Member Type Diagnosis Age At Onset No Information Payers Payer name Insurance type Covered alliance party ID Authoriza tion(s) No Information Social History Type Description Quantity Date Captured Comments Sex Male Smoking Status No Information Chief Complaint And Reason For Visit No Information Reason For Referral Reason For Referral No Information History Of Present Illness Encounter Date Complaint History Of Prese nt Illness No Information Functional Status Date Functional Assessmen t No Information Instructions Date Instruction Additional Infor mation No Information Assessments Type Assessment Date No Information Patient Care Teams Name Effective Dates (start - stop) Status Members No Information
[2025-08-17 15:30] VITALS: BMI 35.2
--- OUTSIDE RECORDS SUMMARY | 2025-08-18 00:57 | XMS_ITS | Clinical Summary ---
Author Organization [facility] Address [address] [place] [address] Care Team Providers Care Ladies Locker Room Attendant Name Role Phone Inocente Nguyen MD Unavailable [phone] Junior Burch MD Unavailable [phone] Shamir Membreno MD Primary Care Provider Source Comments [facility],non-owned Affiliates and Associated Physician Practices is amultiple site organization consisting of ambulatory clinics and hospital sitesin [place], [place], [place] and [place]. This disclosure is being madepursuant to the Care Everywhere program and may not contain all information available regarding this patient. Last updated 18.[facility] Allergies Active Allergy Reactions Criticality Noted Date Comments Phenylephrine Eye Redness 10/07/2020 Medications * Be aware that medications may not be up to date on this document. Alwaysverify current medications with the patient. HUMULIN 70/30 KWIKPEN pen Inject 120 Units subcutaneously 2 times daily 120 AM and 60 PM 4 8 Active rosuvastatin (CRESTOR) 10 MG tablet Take 1 tablet by mouth once daily 2 8 Active ELIQUIS 5 MG tablet Take 1 tablet by mouth 2 times daily 0 8 Active bumetanide (BUMEX) 1 MG tablet Take 1 tablet by mouth 2 times daily 2 pills AM 1 pill PM 2 8 Active sotalol (BETAPACE) 80 MG tablet Take 1 tablet by mouth 2 times daily 3 8 Active diclofenac potassium (CATAFLAM) 50 MG tablet Take 1 tablet by mouth once daily 1 8 Active ONETOUCH ULTRA TEST STRIPS test strip Use 1 strip as directed 1 8 Active TRUEPLUS PEN NEEDLES 31G X 5 MM needle 1 syringe by Injection route as directed 4 8 Active One Touch Delica Lancets Use 1 device as directed 1 8 Active potassium chloride (KLOR-CON M) 20 MEQ tablet Take 1 tablet by mouth once daily 3 8 Active allopurinol (ZYLOPRIM) 300 MG tablet Take 300 mg by mouth once daily Active lisinopril (PRINIVIL;ZEST RIL) 5 MG tablet Take 5 mg by mouth once daily 0 Active traMADol (ULTRAM) 50 MG tablet Take 50 mg by mouth every 8 hours as needed 0 Active TRULICITY 1.5 MG/0.5ML injection Inject 1.5 mL subcutaneously every 7 days 0 Active acetaminophen (TYLENOL) 325 MG tablet Take 2 tablets by mouth every 6 hours as needed for Fever or Pain Maximum allowable Acetaminophen amount = 4 Grams (4000 mg) / 24 hours. 0 0 Active docusate sodium (COLACE) 100 MG capsule Take 1 capsule by mouth 2 times daily 30 capsule 0 Active ibuprofen (MOTRIN) 400 MG tablet Take 1 tablet by mouth every 8 hours as needed for Pain 0 0 Active famotidine (PEPCID) 20 MG tablet Take 20 mg by mouth once daily Active loratadine (CLARITIN) 10 MG tablet Take 10 mg by mouth once daily Active dextromethorph an polistirex ER (ROBITUSSIN 12 HOUR COUGH) liquid Take 10 mL by mouth every 12 hours as needed for Cough 148 mL 2 0 Active levothyroxine (SYNTHROID) 112 MCG tablet Take 1 tablet by mouth daily before breakfast 30 tablet 1 Active Active Problems Problem Noted Date Diagnosed [...] at Not on file Legal Sex Male 4:03 PM CDT Gender Identity Not on file Sexual Orientation Not on file Last Filed Vital Signs Vital Sign Reading Time Taken Comments Blood Pressure 114/76 11/10/2020 12:57 PM BISTRO SERVER Pulse 65 11/10/2020 12:57 PM BISTRO SERVER Temperature 36.2 C (97.1 F) 10/20/2020 3:23 PM BISTRO SERVER Respiratory Rate 20 10/08/2020 8:28 AM BISTRO SERVER Oxygen Saturation 95% 10/08/2020 8:28 AM BISTRO SERVER Inhaled Oxygen Concentration - - Weight 148.3 kg (327 lb) 11/10/2020 12:57 PM BISTRO SERVER Height 182.9 cm (6') 11/10/2020 12:57 PM BISTRO SERVER Body Mass Index 44.35 11/10/2020 12:57 PM BISTRO SERVER Plan of Treatment Health Maintenance Due Date [...] 01/03/2000 ZOSTER VACCINE (1 of 2) 01/03/2000 SCREENING FOR DIABETES 10/08/2023 0, 10/08/2020, 10/07/2020, Additional history exists DEPRESSION SCREENING 10/22/2024 Respiratory Syncytial Virus (RSV) Vaccine Pt: or over 60 yrs (1 - 1-dose 75+ series) 2025 COVID-19 VACCINE ( - 2024- season) 2025 07/31/2022, 03/16/2022, 09/02/2021, Additional history exists INFLUENZA VACCINE (#1) 2025 07/31/2022, 2020 HEPATITIS B VACCINE Aged Out No longe r eligible based on patient's age to complete this topic HIB VACCINE Aged Out No longer eligi ble based on patient's age to complete this topic HPV VACCINE Aged Out No longer eligi ble based on patient's age to complete this topic MENINGOCOCCAL (Group B) VACCINE SHARED DECISION-MAKING Aged Out No longer eligible based on patient's age to complete this topic MENINGOCOCCAL GROUPS A/C/Y/W VACCINE Aged Out No longer eligible based on patient's age to complete this topic Procedures Procedure Name Priority Date/Time Associated Diagnosis Comments BASIC METABOLIC PANEL (CALCIUM TOTAL) STAT 10/08/2020 9:17 AM BISTRO SERVER S/P thyroidectomy from Last 3 Months or Most Recently Relevant to Health Maintenance Results * (ABNORMAL) BASIC METABOLIC PANEL (CALCIUM TOTAL) (10/08/2020 9:17 AM BISTRO SERVER) BUN 23 7 - 26 mg/dL 10/08/2020 9:52 AM [facility] Creatinine 1.3(H) 0.6 - 1.2 mg/dL 10/08/2020 9:52 AM [facility] Sodium 138 136 - 145 mmol/L 10/08/2020 9:52 AM [facility] Potassium 4.5 3.5 - 4.5 mmol/L 10/08/2020 9:52 AM [facility] Chloride 97(L) 98 - 107 mmol/L 10/08/2020 9:52 AM [facility] CO2 26 22 - 29 mmol/L 10/08/2020 9:52 AM [facility] Glucose 247(H) 70 - 115 mg/dL 10/08/2020 9:52 AM [facility] Calcium 8.3(L) 8.4 - 10.2 mg/dL 10/08/2020 9:52 AM [facility] Anion Gap 20(H) 8 - 18 10/08/2020 9:52 AM [facility] BUN/Creatinine Ratio 18 7 - 23 10/08/2020 9:52 AM [facility] Osmolality Calculated 298 270 - 300 mOsm/kg 10/08/2020 9:52 AM [facility] eGFR 55(L) >60 mL/min/1.7 3 m2 10/08/2020 9:52 AM [facility] Blood BLOOD SPECIMEN / Unknown Lab Venipuncture / Unknown 10/08/2020 9:17 AM BISTRO SERVER 10/08/2020 9:23 AM [facility] Adam Iniguez MD LAB - CHEMISTRY ORDERABLES Fin al Result [facility] [address] [place] [address], [facility] [phone] from Last 3 Months or Most Recently Relevant to Health Maintenance [place] [address] MEDICARE [facility] Member Subscriber Plan / Payer (Ef fective 2014-Present) Name:Deni James Relation to Subscriber:Self Name:DENI JAMES Payer ID:[id number] (NAIC) Type:O Address: [address] [place] [id number] MEDICARE [facility] Advance Directives * Full Code (Latest Code Status on File) Date Activated Date Inactivated Comments 10/07/2020 10:34 PM 10/08/2020 1:28 PM Care Teams Ladies Locker Room Attendant Relationship Specialty Start Date End Date Shamir Membreno MD [address] [place] [address] PCP - General 12/20/20 Inocente Nguyen MD [address] [place] [address] Ophthalmology 06/27/18 Junior Burch MD [address] [address] [address] [place] [address] Orthopedic Surgery 06/27/18
--- OUTSIDE RECORDS SUMMARY | 2025-08-18 00:57 | XMS_ITS | Clinical Summary ---
Author Organization [facility] Address [address], [address] [address] Phone Care Team Providers Care Dietary Aid Name Role Phone Shamir Membreno MD Primary [...] (HCV) Screening 1950 TdaP Immunization 1950 Cologuard 1995 Immunochemical Fecal Occult Blood 1995 Pneumococcal Immunization (5 0+ years) (1 of 1 - PCV) 01/03/2000 Zoster Immunization (1 of 2) 01/03/2000 Medicare Initial AWV [id number] 12/21/2015 Colonoscopy 07/22/2023 07/22/2020, 05/22/2019 Colorectal Cancer Screening 07/22/2023 Respiratory Syncytial Virus (RSV) Immunization (Adult) (1 - 1-dose 75+ series) 2025 Influenza Immunization (#1) 2025 SARS-COV-2 Immunization ( season) 2025 Hepatitis B Immunization Aged Out No longer eligible based on patient's age to complete this topic Human Papillomavirus (HPV) Immunization Aged Out No longer eligible b ased on patient's age to complete this topic Meningococcal Immunization (ACWY) Aged Out No longer eligible b ased on patient's age to complete this topic Rotavirus Immunization Aged Out No lo nger eligible based on patient's age to complete this topic Procedures Procedure Name Priority Date/Time Associated Diagnosis Comments COLONOSCOPY Routine 07/22/2020 from Last 3 Months or Most Recently Relevant to Health Maintenance Results * COLONOSCOPY (07/22/2020) Mike Perez DO PROCEDURE/MINOR SURGICAL ORDERA BLES Final Result from Last 3 Months or Most Recently Relevant to Health Maintenance Insurance MEDICARE [facility] Care Teams Dietary Aid Relationship Specialty Start Date End Date Shamir Membreno MD PCP - General Family Medicine 01/22/19
--- OUTSIDE RECORDS SUMMARY | 2025-08-18 00:57 | XMS_ITS | Clinical Summary ---
Author Organization [facility] Address [address] [facility] [address] [place] [address] Care Team Providers Care Leasing Professional Name Role Phone None, Provider Primary Care Provider Unavaila ble Social History Tobacco Use Types Packs/Day Years Used Date Smoking Tobacco: Never Assessed Sex and Gender Information Value Date Recorded Sex Assigned at Not on file Legal Sex Male 10:52 AM TEASEL GIG OPERATOR Gender Identity Not on file Sexual Orientation Not on file Last Filed Vital Signs Vital Sign Reading Time Taken Comments Blood Pressure 92/58 11/16/2021 12:05 PM TEASEL GIG OPERATOR Pulse 65 11/16/2021 11:06 AM TEASEL GIG OPERATOR Temperature 36.7 C (98 F) 11/16/2021 11:06 AM TEASEL GIG OPERATOR Respiratory Rate 20 11/16/2021 11:0 6 AM TEASEL GIG OPERATOR Oxygen Saturation 99% 11/16/2021 12: 15 PM TEASEL GIG OPERATOR Inhaled Oxygen Concentration - - Weight 138.8 kg (306 lb) 11/16/2021 11: 06 AM TEASEL GIG OPERATOR has had weight loss Height 182.9 cm (6') 11/16/2021 11:06 AM TEASEL GIG OPERATOR Body Mass Index 41.5 11/16/2021 11:06 AM TEASEL GIG OPERATOR Plan of Treatment Health Maintenance Due Date Last Done Comments Colorectal Cancer Screening Colonoscopy (10 Years) 1950 Hepatitis C 01/03/1968 DTaP, Tdap and Td Vaccines ( 1 - Tdap) 1969 Zoster Vaccines (1 of 2) 01/03/2000 Annual Medicare Wellness Visit 2015 Pneumococcal Vaccine: 50+ Ye ars (2 of 2 - PCV20 or PCV21) 01/29/2020 01/28/2019 RSV Immunization or 60+ Years (1 - 1-dose 75+ series) 2025 COVID-19 Vaccine (2024-2 6 season) 2025 Influenza Adult (#1) 2025 Hepatitis A Vaccines Aged Out No long er eligible based on patient's age to complete this topic Meningococcal B Vaccine Aged Out No l onger eligible based on patient's age to complete this topic Meningococcal Vaccine Aged Out No reagan manolo eligible based on patient's age to complete this topic RSV Immunizations Under 20 Months Aged Out No longer eligible based on patient's age to complete this topic Medical Devices Implanted Type Area Outside Sales Manager Device Identifier Shelf Expiration Date Model / Serial / Lot Ra Lead-07/15/2014 Implanted:Qty: 1 on 07/15/2014 Lead Implant Right: Atrium [employer] C[employer] HE[employer] FAILURE - DIV M 5076-52 / [id number] / Rv Lead-07/15/2014 Implanted:Qty: 1 on 07/15/2014 Lead Implant Right: Ventricle [employer]HY[employer] HE[employer] FAILURE - DIV M 5076-58 / [id number] / Pacemaker-07/15 Implanted:Qty: 1 on 07/15/2014 Pacemaker Chest [employer] HE[employer] FAILURE - DIV M [id number] / [id number] / Description:DEVICE IS NOT MR CONDITIONAL Insurance MEDICARE [facility] Care Teams Leasing Professional Relationship Specialty Start Date End Date None, Provider, PCP - General 11/16/21
--- OUTSIDE RECORDS SUMMARY | 2025-08-18 00:57 | XMS_ITS ---
Author Organization [facility] [address] Address [address] [place] [address] Care Team Providers Care Railway Signal Technician Name Role Phone Julieta Mulligan MD Unavailable [phone] Maggi Okeefe MD Primary Care Provider [phone] Jaci Castro MD Unavailable [phone] Active Problems Problem Noted Date Diagnosed Date PVD (peripheral vascular disease) 07/23/2024 Assessment & Plan (07/23/2024 9:39 AM CDT): Impression: Patient denies any symptoms of claudication, ischemic rest pain. Patient has an open ulceration to the plantar surface of the left 1st toe that has been present since September and is slowly healing. Patient is currently being treated by [facility] at [facility]. Patient has palpable distal pulses to bilateral [...] (01/19/2022): Added automatically from request for surgery [id number] Papillary thyroid carcinoma 12/02/2020 Cancer Staging:Pathologic stage from 11/19/2020:No Stage Recommended(pT4a, cN0, cM0, Age at diagnosis: >= 55 years) - Signed by Julieta Mulligan MD on 12/02/2020 Mixed diabetic hyperlipidemi a associated with type 2 diabetes mellitus ([facility]) 06/23/2020 Hypertension associated with diabetes 06/23/2020 Benign hypertension with CKD (chronic kidney disease) stage III 03/12/2020 Chronic heart failure with p reserved ejection fraction ([facility]) 03/12/2020 Encounter for monitoring sotalol therapy 019 Chronic fatigue 06/09/2019 Atrial flutter 05/30/2018 Morbid obesity with BMI of 40.0-44.9, adult 05/22 FRANCISCA on CPAP 06/04/2017 Morbid obesity ([facility]) 12/08/2015 Overview (01/25/2017): Morbid obesity with BMI of 45.0-49.9, adult Chronic anticoagulation 12/08/2015 Overview (01/26/2017): Chronic anticoagulation Hypertensive heart disease with congestive heart failure 12/08/2015 Overview (01/26/2017): Hypertensive heart disease with diastolic heart failure Paroxysmal atrial fibrillation ([facility]) 016 Overview (01/26/2017): Paroxysmal atrial fibrillation Type [...] pacer checks Q6 mo. Diabetic foot ulcer 05/13/2014 Overview (01/25/2017): Ulcer of other part of foot Assessment & Plan (07/23/2024 9:44 AM CDT): Impression: Patient has a left plantar 1st toe ulceration that has been present since September after a fall. Patient is currently being treated by [facility] at [facility]. Patient reports ulceration is healing and is small in size with no concern drainage. Plan: Recommend continue wound care as per Wound Clinic. -recommend x-ray and MRI contrast to the left 1st toe for further evaluation of underlying bone infection. Patient will require an open MRI due to having a pacemaker. -patient to follow-up in 2-3 weeks to review results. 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[facility]) 05/13/2014 Overview (01/25/2017): Tachy-jourdan syndrome Current Treatment [...]
[2025-08-18 07:00] VITALS: BP 113/78; PULSE 65; RESP 16; TEMP 36.7; O2SAT 100; BMI 35.2
[2025-08-18 07:22] LABS: Hematocrit 46.7 % (42.0-52.0); Hemoglobin 14.8 g/dL (14.0-18.0); Immature Granulocyte Percent A 0.6 % (0-0.5); Immature Platelet Fraction Pct 5.0 % (0.9-11.2); Lymphocytes Absolute Auto 2.32 K/mm3 (0.9-3.2); Mean Corpuscular HGB Conc 31.7 g/dl (32-36); Mean Corpuscular Hemoglobin 29.2 pg (26-34); Mean Corpuscular Volume 92.3 fl (80-100); Nucleated Red Blood Cells Absolute Auto 0.000 K/mm3 (0.0-0.012); Nucleated Red Blood Cells Perc 0.0 % (0.0-0.2); Platelet Count Result 115 k/mm3 (150-375); Red Blood Count 5.06 M/mm3 (4.6-6.20); White Blood Count 8.7 K/mm3 (4.5-10.0)
[2025-08-18 08:01] LABS: Anion Gap 4 mmol/L (4-12); Blood Urea Nitrogen 25 mg/dL (9-20); Calcium 8.8 mg/dL (8.4-10.2); Carbon Dioxide 32 mmol/L (22-30); Chloride 98 mmol/L (98-107); Estimated CRCL calculation 57 ml/min; Estimated Glomerular Filt Rate 52; Glucose 106 mg/dL (65-110); Potassium 3.8 mmol/L (3.4-5.0); Sodium 134 mmol/L (137-145)
--- NOTE | 2025-08-18 08:51 | WPDMODSED ---
Moderate Sedation Note-Pt Data Patient Data Diagnosis: Permanent pacemaker at [facility] Present Complaint: No complaints Procedure to be performed/Plan: Pacemaker generator change Allergies Allergy/AdvReac Type Severity Reaction Status Date / Time phenylephrine (From Allergy Intermediate Rash Verified 08/17/25 15:14 Eb-Synephrine (phenylephrine)) Home Medications ?Medication ?Instructions ?Recorded ?Confirmed ?Type potassium chloride 20 mEq 20 meq PO QPM 10/28/19 08/17/25 History tablet,extended release safety needles 31 gauge x 5/16 #100 ea 11/10/19 05/28/25 Rx apixaban 5 mg tablet (Eliquis) 5 mg PO BID 11/18/19 08/17/25 History sotalol 80 mg tablet 80 mg PO BID 02/26/20 08/17/25 History lancets 33 gauge (OneTouch Delica #300 ea 02/28/21 05/28/25 Rx Lancets) lisinopril 5 mg tablet 5 mg PO DAILY 02/15/22 08/17/25 History orthotic inserts #1 ea 12/14/23 05/28/25 Rx diabetic shoes #1 ea 12/28/23 05/28/25 Rx blood-glucose,bolt cutter,cont #1 ea 02/26/24 05/28/25 Rx (Dexcom G7 Heating Technician) cholecalciferol (vitamin D3) 25 25 mcg PO DAILY 02/26/24 08/17/25 History mcg (1,000 unit) capsule bumetanide 1 mg tablet 2 mg PO QAM 04/01/24 08/17/25 History calcium carbonate (Calcium 600) 600 mg PO BID 04/01/24 08/17/25 History allopurinol 300 mg tablet 300 mg PO DAILY #90 tabs 10/18/24 08/17/25 Rx blood sugar diagnostic #100 ea 10/29/24 05/28/25 Rx blood sugar diagnostic (Blood #100 ea 10/29/24 05/28/25 Rx Glucose Test strips) blood-glucose meter (Blood Glucose #1 ea 10/29/24 05/28/25 Rx Monitoring kit) rosuvastatin 10 mg tablet 40 mg PO DAILY 11/28/24 08/17/25 History empagliflozin 10 mg tablet See Rx Instructions .Route 01/08/25 08/17/25 Rx (Jardiance) .COMPLEX #30 tabs semaglutide 2 mg/dose (8 mg/3 mL) See Rx Instructions .Route 02/26/25 08/17/25 Rx subcutaneous pen injector (Ozempic) .COMPLEX #9 mL blood-glucose sensor (Dexcom G7 #9 ea 05/28/25 05/28/25 Rx Sensor device) insulin NPH-regular 70-30 U-100 See Rx Instructions .Route 05/28/25 08/17/25 Rx insulin 100 unit/mL subcutaneous .COMPLEX 3 months #90 mL pen (Humulin 70/30 U-100 KwikPen) pen needle, diabetic 31 gauge x #200 ea 06/23/25 Rx 01/04 levothyroxine 137 mcg tablet 137 mcg PO DAILY 3 months #90 tabs 07/24/25 08/17/25 Rx Sedation/Anesthesia: No previous sedation/anesthesia problems (including family history). [facility] Past Medical History Medical History Flat foot [pes planus] (acquired), left foot Acquired hallux valgus of left foot Hyperlipidemia LDL goal <100 Metabolic syndrome Ulcer of heel Hypothyroidism (acquired) Diabetic foot ulcer Thyroid cancer Multinodular goiter GERD (gastroesophageal reflux disease) HLD (hyperlipidemia) CKD (chronic kidney disease) PAD (peripheral artery disease) Adenomatous colon polyp Osteopenia Knee joint effusion Degenerative joint disease of knee AVN (avascular necrosis of bone) Nocturia Hypogonadism in male Chronic kidney disease Diabetic vasculopathy History of colon polyps Diabetic neuropathy Diastolic congestive heart failure History of foot ulcer Tachy-jourdan syndrome Paroxysmal atrial fibrillation Morbid obesity with BMI of 45.0-49.9, adult FRANCISCA on CPAP Erectile dysfunction Osteoarthritis Atrial fibrillation Pacemaker Gout Primary hypertension Type 2 diabetes mellitus with diabetic neuropathic arthropathy, with long-term current use of insulin Last A1C as of 03/09/20-7.4 Peripheral neuropathy Surgical History Surgical History History of heart surgery 07/15/14, pacemaker installed History of foot surgery multiple foot ulcers History of total knee replacement 02/01/22, left knee H/O thyroidectomy 10/07/2021 Family History Family History Other Cerebrovascular accident Diabetes mellitus Family history of arthritis Family history of cardiovascular disease Family history of gout Family history of hepatitis Family history of malignant neoplasm Family history of malignant neoplasm of thyroid Family history of thyroid disease Hypertension Social History Social History Social History: Patient lives at home with his who is suffering from dementia. His daughter who is a registered nurse here at [facility] is very active in helpful in his care. Smoking status: Never smoker Second hand tobacco smoke exposure: No Alcohol intake: never Substance use: never Substance use type: does not use Do You Feel Safe in your Home?: Yes Lack of Transportation: No Lack of Food: Never True Current Housing: I Have Housing Concerned About Future Housing: No Difficulty Paying Gas/Electric Bills: No Difficulty Paying for Meds: No Currently Unemployed: No Education: Bachelor's Degree Difficulty w/ Childcare or Family Care: No Living arrangements: with family Occupation/Education: retired Additional occupation/education comments: He is retired as a daycare provider Gender identity (if verbalized by the patient): Male Sexual Orientation (if Verbalized by the Patient): Straight or Heterosexual Spiritual care concerns: No Mod Sed Physical Exam Physical Exam Pre Procedural Exam: Normal: Neck, Throat, Airway, Lungs, Heart Size, Heart Rate, Neuro Exam and Extremities and Variation: Appearance (Pleasant overweight gentleman no distress) and Heart Rhythm (Paced rhythm) Hours since solid foods: 12 Hours since liquid intake: 12 Mallampati Classification: class II Internal Medicine - PN: Obj Da Vital Signs Vital Signs: Vital Signs - 24 hr 08/18/25 07:00 Temperature 36.7 C Pulse Rate 65 Respiratory Rate 16 Blood Pressure 113/78 Pulse Oximetry 100 Oxygen Delivery Room Air Labs 08/18/25 07:12 08/18/25 07:34 Labs: Laboratory Results - last 24 hr 08/18/25 08/18/25 07:12 07:34 WBC 8.7 RBC 5.06 Hgb 14.8 Hct 46.7 MCV 92.3 MCH 29.2 MCHC 31.7 L RDW 15.8 H Plt Count 115 L MPV 10.8 H Immature Gran % (Auto) 0.6 H Neut % (Auto) 58.7 Lymph % (Auto) 26.8 Dukes % (Auto) 10.0 H Eos % (Auto) 2.9 Baso % (Auto) 1.0 Lymph # (Auto) 2.32 Dukes # (Auto) 0.9 H Eos # (Auto) 0.3 Baso # (Auto) 0.1 Abs Immat Gran (auto) 0.05 H Absolute Neuts (auto) 5.1 Absolute Nucleated RBC 0.000 Nucleated RBC % 0.0 % Immature Plt Fraction 5.0 Sodium 134 L Potassium 3.8 Chloride 98 Carbon Dioxide 32 H Anion Gap 4 BUN 25 H Creatinine 1.34 H Estim Creat Clear Calc 57 Estimated GFR 52 L Glucose 106 Calcium 8.8 ASA Classification/Sedation ASA Classification/Sedation ASA Class: II Emergent: No Risks: Risks, benefits and alternatives explained and patient/family accepted plan for sedation. Patient re-evaluated immediately prior to sedation.
--- NOTE | 2025-08-18 09:49 | WPDCARDPROC ---
Cardiac Cath Procedure Note Date of procedure:: 08/18/25 Performing physician:: Mike Gardner MD Indication:: Chronically implanted pacemaker at [facility] Brief clinical history:: This is a 75-year-old man with a history of complete heart block as well as a history of paroxysmal atrial fibrillation. For treatment of this he has been managed with a dual-chamber pacemaker and sotalol. His pacemaker device is at [facility] and he is admitted today as an outpatient for generator change. His apixaban has been discontinued 3 days ago. Procedure Procedure performed:: Explantation of depleted pulse generator Implantation of new pacemaker pulse generator Sedation/Medication given:: Fentanyl 50 mg Versed 2 mg Case start time 9:13 a.m. Case end time 9:41 a.m. Sedation provided by Es Villafuerte RN trained observer Access site:: Chronically implanted pocket left anterior chest wall Estimated blood loss:: Minimal Procedure note:: Patient was brought to the cardiac catheterization lab in the postabsorptive state where the left anterior chest wall, the site of the chronically implanted pacemaker device was prepped and draped in the sterile fashion. 20 cc of lidocaine was injected at the site the pocket for local anesthesia. An incision was then made using the plasma blade over the pocket and electrocautery was used to provide cutaneous hemostasis. The in the PlasmaBlade was used to dissect the subcutaneous tissue in the fibrous capsule was then encountered. This was opened using the plasma blade and Metzenbaum scissors. The pacemaker device and the attached leads were then removed from the pocket and were visually unremarkable in appearance. The torque wrench was used to disconnect the pacemaker's from the depleted generator. Pocket was irrigated with Ancef infused saline. The new pacemaker device was connected to the leads using the torque wrench and the entire assembly was placed back into the pocket. The wound was then closed in layers using 3-0 Vicryl in an interrupted fashion for the subcutaneous tissue and 4-0 Vicryl in a running subcuticular fashion for the skin. The wound was dressed with an Aquacel dressing. He was taken back to the holding area in stable condition the procedure was well tolerated and uncomplicated. Findings:: The explanted pacemaker device is a Medtronic dual-chamber pacemaker model ADDR01 serial number [id number]. Device was visually implanted July 15, 2014 The new pacemaker generator is a Medtronic dual-chamber device model W1DR01 serial number [id number]. Device is programmed in the DDDR mode lower rate limit 60 upper rate limit 130 av delay 180/150 milliseconds. The atrial lead is a chronically implanted Medtronic bipolar lead model 5076-5 2 serial number [id number] originally implanted 07/15/2014. P-waves are sensed at 1.6 mV threshold 1.5 volts at 0.4 milliseconds impedance 380 Ohms. The ventricular lead is a chronically implanted Medtronic bipolar lead model 5076-5 8 serial number [id number]. R-waves are sensed at 8.8 mV threshold 0.75 volts at 0.4 milliseconds impedance 437 Ohms. Conclusion:: 1. Successful uncomplicated explantation of depleted dual-chamber pulse generator 2. Successful uncomplicated implantation of new Medtronic dual-chamber pulse generator as detailed above 3. Chronically implanted leads are functioning well as described above 4. Patient reported the in chronic atrial fibrillation however was in sinus rhythm during this procedure today Mike Gardner MD [facility]
[2025-08-18 09:50] VITALS: BP 138/76; PULSE 60; RESP 17; O2SAT 100
[2025-08-18 10:00] VITALS: BP 136/77; PULSE 61; RESP 12; O2SAT 100
[2025-08-18 10:15] VITALS: BP 114/74; PULSE 60; RESP 17; O2SAT 99
[2025-08-18 10:30] VITALS: BP 126/79; PULSE 76; RESP 21; O2SAT 99
[2025-08-18 10:45] VITALS: BP 139/76; PULSE 60; RESP 15; O2SAT 100
== END 2025-08-18 10:51 | disposition home or self-care (01) ==
PROVIDERS: PCP Physician Assistant Medical; Visit Provider Specialist
PROC: 0JPT0PZ Removal of Cardiac Rhythm Related Device from Trunk Subcutaneous Tissue and Fascia, Open Approach (ICD-10-PCS; CPT 33228; principal; 2025-08-18 08:30)
DX: Z45.010 Encounter for checking and testing of cardiac pacemaker pulse generator [battery] (principal); I44.2 Atrioventricular block, complete; I48.0 Paroxysmal atrial fibrillation
CPT/HCPCS: 33228; 36415; 80048; 85025; 85055; J0690; C1785; J2003; J2250; J3010; J7040; J7050